=== PATIENT | male | born 1965 | race American Indian/Alaskan Native ===

== ENCOUNTER 2019-01-24 18:03 | Emergency (ER) | payer MEDICARE ==
--- NOTE | 2019-01-24 19:04 | Emergency Department Report ---
Blank Doc - Documentation Documentation: 54 y o male with pmh of CHF,HTN,DM presents with bilateral lower leg swelling x 2 days lab s ordered denies cp/sob
[2019-01-24 19:49] LABS: Basophils # (Auto) 0.1 K/mm3 (0.0-0.1); Basophils % (Auto) 0.8 % (0.0-1.8); Eosinophils # (Auto) 0.1 K/mm3 (0.0-0.4); Hematocrit 30.3 % (35.5-45.6); Hemoglobin 9.9 gm/dl (11.8-15.2); Lymphocytes # (Auto) 1.1 K/mm3 (1.2-5.4); Lymphocytes % (Auto) 16.2 % (13.4-35.0); Mean Corpuscular HGB Conc 33 % (32-34); Mean Corpuscular Volume 84 fl (84-94); Monocytes # (Auto) 0.8 K/mm3 (0.0-0.8); Monocytes % (Auto) 11.1 % (0.0-7.3); Platelet Count 302 K/mm3 (140-440); Red Blood Count 3.62 M/mm3 (3.65-5.03); Red Cell Distribution Width 19.2 % (13.2-15.2)
[2019-01-24 20:01] LABS: Albumin 3.4 g/dL (3.9-5); Calcium 8.5 mg/dL (8.4-10.2)
[2019-01-24] MEDS ORDERED: LASIX IV ONE (21:40)
[2019-01-24] MEDS ORDERED: NORCO 5/325 PO ONE (21:40)
--- NOTE | 2019-01-24 22:40 | Emergency Department Report ---
HPI - General Chief Complaint: Extremity Problem,Nontraumatic Time Seen by Provider: 01/24/19 19:00 - HPI HPI: 54 y o male with pmh of CHF,HTN,DM presents with bilateral lower leg swelling x 2 days ED Past Medical Hx - Past Medical History Previous Medical History?: Yes Hx Hypertension: Yes Hx Congestive Heart Failure: Yes Hx Diabetes: Yes Hx Deep Vein Thrombosis: Yes Additional medical history: hyperthyroidism - Surgical History Past Surgical History?: Yes Additional Surgical History: "lung surgery", mitral valve replacement, internal defib/pacemaker - Social History Smoking Status: Never Smoker Substance Use Type: None - Medications Home Medications: Home Medications Medication Instructions Recorded Confirmed Last Taken Type Warfarin Sodium [Coumadin] 5 mg PO 01/24/19 01/24/19 History ED Review of Systems ROS: Stated complaint: LEG PAIN/ SWELLING Other details as noted in HPI Physical Exam - Physical Exam Vital Signs: Vital Signs 01/24/19 19:00 Temperature 98.5 F Pulse Rate 78 Respiratory 18 Rate Blood Pressure 133/82 O2 Sat by Pulse 96 Oximetry Physical Exam: ED Physical Exam - General Limitations: No Limitations General appearance: alert, in no apparent distress - Head Head exam: Present: atraumatic, normocephalic - Eye Eye exam: Present: normal appearance, PERRL Pupils: Present: normal accommodation - ENT ENT exam: Present: mucous membranes moist - Neck Neck exam: Present: normal inspection - Respiratory Respiratory exam: Present: normal lung sounds bilaterally. Absent: respiratory distress, wheezes, rales - Cardiovascular Cardiovascular Exam: Present: regular rate, normal rhythm. Absent: systolic murmur, diastolic murmur, rubs, gallop - GI/Abdominal GI/Abdominal exam: Present: soft, nt, normal bowel sounds. Absent: distended - Rectal Rectal exam: Present: deferred - Extremities Exam Extremities exam: Present: 2 plus pedal edema - Back Exam Back exam: Present: normal inspection - Neurological Exam Neurological exam: Present: alert, oriented X3 - Psychiatric Psychiatric exam: Present: normal affect, normal mood - Skin Skin exam: Present: warm, dry, intact, normal color. Absent: rash ED Course Vital Signs 01/24/19 19:00 Temperature 98.5 F Pulse Rate 78 Respiratory 18 Rate Blood Pressure 133/82 O2 Sat by Pulse 96 Oximetry ED Medical Decision Making - Lab Data Result diagrams: 01/24/19 19:07 05/23/19 19:07 - Medical Decision Making chf patient with leg swelling and pain, lasix iv, norco given pain resolved. Critical care attestation.: If time is entered above; I have spent that time in minutes in the direct care of this critically ill patient, excluding procedure time. ED Disposition Clinical Impression: Peripheral edema Disposition: DC-01 TO HOME OR SELFCARE Is pt being admited?: No Does the pt Need Aspirin: No Condition: Stable Referrals: ROYAL LAY MD [Primary Care Provider] - 3-5 Days
[2019-01-24 23:53] VITALS: BP 117/74
== END 2019-01-25 00:02 | disposition home or self-care (01) ==
LOC: ED 18:03
DX: R60.9 Edema, unspecified (principal); I11.0 Hypertensive heart disease with heart failure; I50.9 Heart failure, unspecified; E11.9 Type 2 diabetes mellitus without complications; E05.90 Thyrotoxicosis, unspecified without thyrotoxic crisis or storm
CPT/HCPCS: 36415; 80053; 83880; 85025; 96374; 99283; J1940

== ENCOUNTER 2019-01-30 21:37 | Emergency (ER) | payer MEDICARE ==
--- NOTE | 2019-01-30 21:46 | Emergency Department Report ---
Blank Doc - Documentation Documentation: This is a 54-year-old male that presents with bilateral lower leg pains. Denies any trauma. HX of diabetes. This initial assessment/diagnostic orders/clinical plan/treatment(s) is/are subject to change based on patient's health status, clinical progression and re- assessment by fellow clinical providers in the ED. Further treatment and workup at subsequent clinical providers discretion. Patient/guardians urged not to elope from the ED as their condition may be serious if not clinically assessed and managed. Initial orders include: 1- Patient sent to [facility] for further evaluation and treatment 2- labs
[2019-01-30 22:00] VITALS: BP 124/74
[2019-01-30 22:05] LABS: Basophils # (Auto) 0.1 K/mm3 (0.0-0.1); Eosinophils # (Auto) 0.1 K/mm3 (0.0-0.4); Eosinophils % (Auto) 1.3 % (0.0-4.3); Hematocrit 30.3 % (35.5-45.6); Lymphocytes # (Auto) 0.9 K/mm3 (1.2-5.4); Lymphocytes % (Auto) 18.5 % (13.4-35.0); Mean Corpuscular HGB Conc 33 % (32-34); Mean Corpuscular Volume 83 fl (84-94); Monocytes # (Auto) 0.8 K/mm3 (0.0-0.8); Monocytes % (Auto) 15.1 % (0.0-7.3); Platelet Count 259 K/mm3 (140-440); Red Blood Count 3.64 M/mm3 (3.65-5.03); Red Cell Distribution Width 18.6 % (13.2-15.2)
[2019-01-30 22:22] LABS: Calcium 8.5 mg/dL (8.4-10.2)
[2019-01-31] MEDS ORDERED: NORCO 5/325 PO ONE (00:31)
[2019-01-31] MEDS ORDERED: NACL 0.9% 1000 ML 1,000 ML IV ONE (00:31)
--- NOTE | 2019-01-31 00:50 | Emergency Department Report ---
ED Lower Extremity HPI - General Chief Complaint: Extremity Problem,Nontraumatic Stated Complaint: LEG PAIN Time Seen by Provider: 01/30/19 21:45 Source: patient Mode of arrival: Ambulatory Limitations: No Limitations - History of Present Illness Initial Comments: This is a 54-year-old male that presents with bilateral lower leg pains. hx of chf and DVT on coumadin , pain 5/10 x 3 days pt denies sob Denies any trauma. HX of diabetes, CHF, and DVT, pt is ambulatory with steady at this time MD Complaint: leg injury (bilat LE pain swelling ) Onset/Timin -: days(s) Injury: Leg: Right, Left (bilat le pain swelling ) Type of Injury: other (none ) Place: home Severity: moderate Severity scale (0 -10): 5 Improves With: rest Worsens With: weight bearing, movement, palpation Context: other Associated Symptoms: swelling, ambulatory. denies: snap/pop sensation, numbness, tingling - Related Data Previous Rx's Medication Instructions Recorded Last Taken Type Acetaminophen/Codeine [Tylenol 1 tab PO Q6H PRN #12 tab 01/31/19 Unknown Rx /Codeine # 3 tab] Diclofenac 1% [Diclofenac 1% 1 applicatio TP QID PRN #1 tube 01/31/19 Unknown Rx topical gel] Allergies Allergy/AdvReac Type Severity Reaction Status Date / Time Penicillins Allergy Itching Verified 01/30/19 21:44 ED Review of Systems ROS: Stated complaint: LEG PAIN Other details as noted in HPI Constitutional: denies: chills, fever Eyes: denies: eye pain, eye discharge, vision change ENT: denies: ear pain, throat pain Respiratory: denies: cough, shortness of breath, wheezing Cardiovascular: denies: chest pain, palpitations Endocrine: no symptoms reported Gastrointestinal: denies: abdominal pain, nausea, diarrhea Genitourinary: denies: urgency, dysuria Musculoskeletal: arthralgia, myalgia, other (LLE pain ). 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) - Surgical History Hx Pacemaker: Yes - Social History Smoking Status: Former Smoker Substance Use Type: None - Medications Home Medications: Home Medications Medication Instructions Recorded Confirmed Last Taken Type Acetaminophen/Codeine [Tylenol 1 tab PO Q6H PRN #12 tab 01/31/19 Unknown Rx /Codeine # 3 tab] Diclofenac 1% [Diclofenac 1% 1 applicatio TP QID PRN #1 tube 01/31/19 Unknown Rx topical gel] ED Physical Exam - General Limitations: No Limitations General appearance: alert, in no apparent distress - Head Head exam: Present: atraumatic, normocephalic - Eye Eye exam: Present: normal appearance, PERRL, EOMI Pupils: Present: normal accommodation - ENT ENT exam: Present: mucous membranes moist - Neck Neck exam: Present: normal inspection, full ROM. Absent: tenderness, meningismus, lymphadenopathy, thyromegaly - Expanded Neck Exam Expanded Neck exam: Absent: tenderness, midline deformity, anterior neck swelling, thyroid mass, carotid bruit, tracheal deviation - Respiratory Respiratory exam: Present: normal lung sounds bilaterally. Absent: respiratory distress, wheezes, stridor, chest wall tenderness - Cardiovascular Cardiovascular Exam: Present: regular rate, normal rhythm, normal heart sounds. Absent: systolic murmur, diastolic murmur, rubs, gallop - GI/Abdominal GI/Abdominal exam: Present: normal bowel sounds. Absent: distended, tenderness, guarding, rebound, rigid, bruit, hernia - Rectal Rectal exam: Present: deferred - Extremities Exam Extremities exam: Present: full ROM, tenderness (left lateral Leg ), normal capillary refill, pedal edema (nonpitting ). Absent: joint swelling, calf tenderness - Expanded Lower Extremity Exam Left Lower Leg exam: Present: full ROM, tenderness. Absent: swelling, abrasion, laceration, ecchymosis, deformity, crepidus, dislocation, erythema, palpable cord, Brett's sign Ankle exam: Present: normal inspection, full ROM Foot/Toe exam: Present: normal inspection, full ROM. Absent: tenderness - Back Exam Back exam: Present: normal inspection, full ROM. Absent: CVA tenderness (R), CVA tenderness (L) - Neurological Exam Neurological exam: Present: alert, oriented X3, CN II-XII intact, normal gait, reflexes normal - Psychiatric Psychiatric exam: Present: normal affect, normal mood - Skin Skin exam: Present: warm, dry, intact, normal color. Absent: rash ED Course Vital Signs 01/30/19 21:45 Temperature 97.3 F L Pulse Rate 71 Respiratory 20 Rate Blood Pressure 124/74 O2 Sat by Pulse 97 Oximetry ED Lower Extremity MDM - Lab Data Result diagrams: 01/30/19 21:49 01/30/19 21:49 Labs 01/30/19 01/30/19 01/30/19 21:49 21:49 21:49 WBC 5.0 RBC 3.64 L Hgb 10.0 L Hct 30.3 L MCV 83 L MCH 28 MCHC 33 RDW 18.6 H Plt Count 259 Lymph % (Auto) 18.5 [place] % (Auto) 15.1 H Eos % (Auto) 1.3 Baso % (Auto) 1.0 Lymph # 0.9 L [place] # 0.8 Eos # 0.1 Baso # 0.1 Seg Neutrophils % 64.1 Seg Neutrophils # 3.2 PT INR APTT VBG pH 7.428 H Sodium 135 L Potassium 4.4 Chloride 100.1 Carbon Dioxide 23 Anion Gap 16 BUN 30 H Creatinine 2.0 H Estimated GFR 35 BUN/Creatinine Ratio 15 Glucose 102 H Calcium 8.5 Total Creatine Kinase 128 Troponin T 01/31/19 01/31/19 01:00 01:00 WBC RBC Hgb Hct MCV MCH MCHC RDW Plt Count Lymph % (Auto) [place] % (Auto) Eos % (Auto) Baso % (Auto) Lymph # [place] # Eos # Baso # Seg Neutrophils % Seg Neutrophils # PT 22.9 H INR 1.88 H APTT 37.2 H VBG pH Sodium Potassium Chloride Carbon Dioxide Anion Gap BUN Creatinine Estimated GFR BUN/Creatinine Ratio Glucose Calcium Total Creatine Kinase Troponin T < 0.010 - Radiology Data Radiology results: pending, report reviewed, image reviewed Ordering Physician: ANGELINE THOMPSON NP Date of Service: 01/31/19 Procedure(s): XR tibia fibula 2V LT Accession Number(s): [id number] cc: ANGELINE THOMPSON NP Fluoro Time In Minutes: PROCEDURE: XR TIBIA FIBULA 2V LT TECHNIQUE: Left tibia and fibula radiographs, AP and lateral views. HISTORY: leg pain COMPARISONS: None. FINDINGS: Fracture (s) and/or Dislocation(s): None. Joint space(s): Normal. Soft tissues: Normal. Bone mineralization: Normal. Foreign bodies: None. IMPRESSION: Normal Examination. This document is electronically signed by Mauri Monson MD., Jan 31 2019 01:18:32 AM ET Transcribed By: [place] Dictated By: MAURI MONSON MD Electronically Authenticated By: MAURI MONSON MD Signed Date/Time: 01/31/19 0120 DD/ TD/TT: 01/31/19 0055 Ordering Physician: ANGELINE THOMPSON NP Date of Service: 01/31/19 Procedure(s): XR chest routine 2V Accession Number(s): [id number] cc: ANGELINE THOMPSON NP Fluoro Time In Minutes: PROCEDURE: XR CHEST ROUTINE 2V TECHNIQUE: PA and lateral chest radiographs were obtained. HISTORY: sob COMPARISONS: None. FINDINGS: Heart: Heart is borderline enlarged. Mediastinum/Vessels: Normal. Lungs/Pleural space: Lungs are expanded. There are no infiltrates, effusions or pneumothoraces.. Bony thorax: No acute osseous abnormality. Pacemaker leads are in proper position. IMPRESSION: Heart is borderline enlarged. Lungs are expanded. There are no infiltrates, effusions or pneumothoraces.. Pacemaker leads are in proper position.. This document is electronically signed by Mauri Monson MD., Jan 31 2019 01:15:02 AM ET Transcribed By: CO Dictated By: MAURI MONSON MD Electronically Authenticated By: MAURI MONSON MD Signed Date/Time: 01/31/19 0116 DD/ 0033 TD/TT: 01/31/195 - Medical Decision Making cxr normal no infiltrates no opacitie, LE xray normal no fracture no soft tissue abnormality, pain is improved with hydrocodone given in ed , LE exam mild swelling left no calf tenderness neg homans sign, no pain with dorsoflexion, labs noted for inr: 1.88, plan dc to home follow with pcp in 2-3 days take medications as prescribed checked [place] [facility]: last rx filled 09/2018, Critical care attestation.: If time is entered above; I have spent that time in minutes in the direct care of this critically ill patient, excluding procedure time. ED Disposition Clinical Impression: Leg pain, bilateral Disposition: DC- TO HOME OR SELFCARE Is pt being admited?: No Does the pt Need Aspirin: No Condition: Stable Instructions: Arthralgia (ED), Musculoskeletal Pain (ED) Prescriptions: Diclofenac 1% [Diclofenac 1% topical gel] 1 applicatio TP QID PRN #1 tube PRN Reason: pain Acetaminophen/Codeine [Tylenol /Codeine # 3 tab] 1 tab PO Q6H PRN #12 tab PRN Reason: pain Referrals: JEFFERSON CACERES MD [Staff Physician] - 3-5 Days ISSA CARIAS MD [Staff Physician] - 3-5 Days Forms: Work/School Release Form(ED) Time of Disposition: 04:18
--- NOTE | 2019-01-31 01:16 | XRay Report ---
PROCEDURE: XR CHEST ROUTINE 2V TECHNIQUE: PA and lateral chest radiographs were obtained. HISTORY: sob COMPARISONS: None. FINDINGS: Heart: Heart is borderline enlarged. Mediastinum/Vessels: Normal. Lungs/Pleural space: Lungs are expanded. There are no infiltrates, effusions or pneumothoraces.. Bony thorax: No acute osseous abnormality. Pacemaker leads are in proper position. IMPRESSION: Heart is borderline enlarged. Lungs are expanded. There are no infiltrates, effusions or pneumothoraces.. Pacemaker leads are in proper position.. This document is electronically signed by Mauri Wilson MD., Jan 31 2019 01:15:02 AM ET
--- NOTE | 2019-01-31 01:20 | XRay Report ---
PROCEDURE: XR TIBIA FIBULA 2V LT TECHNIQUE: Left tibia and fibula radiographs, AP and lateral views. HISTORY: leg pain COMPARISONS: None. FINDINGS: Fracture (s) and/or Dislocation(s): None. Joint space(s): Normal. Soft tissues: Normal. Bone mineralization: Normal. Foreign bodies: None. IMPRESSION: Normal Examination. This document is electronically signed by Mauri Wilson MD., Jan 31 2019 01:18:32 AM ET
[2019-01-31 01:45] LABS: INR 1.88 (0.87-1.13)
[2019-01-31 01:46] LABS: Partial Thromboplastin Time 37.2 Sec. (24.2-36.6)
== END 2019-01-31 04:30 | disposition home or self-care (01) ==
LOC: ED 21:37 → MERGE 21:37 → ED 01-31 04:30
DX: M79.661 Pain in right lower leg (principal); M79.662 Pain in left lower leg; I50.9 Heart failure, unspecified; I11.0 Hypertensive heart disease with heart failure; M79.10 Myalgia, unspecified site; Z79.01 Long term (current) use of anticoagulants; Z88.0 Allergy status to penicillin; Z86.718 Personal history of other venous thrombosis and embolism; Z95.0 Presence of cardiac pacemaker; Z87.891 Personal history of nicotine dependence
CPT/HCPCS: 36415; 71046; 73590; 80048; 82550; 82805; 82962; 84484; 85025; 85610; 85730; 99284; J7030

== ENCOUNTER 2019-02-01 18:51 | Emergency (ER) | payer MEDICARE ==
--- NOTE | 2019-02-01 19:01 | Event Note ---
ED Screening Note ED Screening Note: here with sob- no fever; no cp glf yest landed on knees - swollen and red on coumadin extensive cardiac history including MVR and AICD can not tell me all his meds clean for 2 years- no etoh/cig/drugs allergy pcn no travel would take blood This initial assessment/diagnostic orders/clinical plan/treatment(s) is/are subject to change based on patients health status, clinical progression and re- assessment by fellow clinical providers in the ED. Further treatment and workup at subsequent clinical providers discretion. Patient/guardian urged not to elope from the ED as their condition may be serious if not clinically assessed and managed. Initial orders include: labs inc INR xray chest/knee chest xray
[2019-02-01 19:24] LABS: Basophils # (Auto) 0.1 K/mm3 (0.0-0.1); Basophils % (Auto) 1.4 % (0.0-1.8); Eosinophils # (Auto) 0.1 K/mm3 (0.0-0.4); Hematocrit 31.5 % (35.5-45.6); Hemoglobin 10.3 gm/dl (11.8-15.2); Lymphocytes % (Auto) 20.2 % (13.4-35.0); Mean Corpuscular HGB Conc 33 % (32-34); Mean Corpuscular Volume 82 fl (84-94); Monocytes # (Auto) 0.8 K/mm3 (0.0-0.8); Monocytes % (Auto) 15.6 % (0.0-7.3); Platelet Count 253 K/mm3 (140-440); Red Blood Count 3.82 M/mm3 (3.65-5.03); Red Cell Distribution Width 18.4 % (13.2-15.2)
[2019-02-01 19:35] LABS: INR 2.32 (0.87-1.13)
[2019-02-01 19:51] LABS: Albumin 3.3 g/dL (3.9-5); Calcium 8.5 mg/dL (8.4-10.2)
--- NOTE | 2019-02-01 20:16 | XRay Report ---
PROCEDURE: XR KNEE BILAT 1-2V TECHNIQUE: Bilateral knee radiographs, standing AP view. HISTORY: pain COMPARISONS: None . FINDINGS: Fracture (s) and/or Dislocation(s): None . Joint space(s): Normal . Soft tissues: Normal . Bone mineralization: Normal . Foreign bodies: None . IMPRESSION: There is no acute bony abnormality. . This document is electronically signed by Mauri Wilson MD., Feb 01 2019 09:14:20 PM ET
--- NOTE | 2019-02-01 20:18 | XRay Report ---
PROCEDURE: XR CHEST ROUTINE 2V TECHNIQUE: PA and lateral chest radiographs were obtained. HISTORY: Dyspnea COMPARISONS: None. FINDINGS: Heart: Heart size is normal. There has been open heart surgery.. Mediastinum/Vessels: Normal. Lungs/Pleural space: There are small pleural effusions. There is no pneumothorax. There are no acute infiltrates. Bony thorax: No acute osseous abnormality. Pacemaker leads are in proper position. IMPRESSION: Heart size is normal. There has been open heart surgery.. There are small pleural effusions. There is no pneumothorax. There are no acute infiltrates. Pacemaker leads are in proper position.. This document is electronically signed by Mauri Wilson MD., Feb 01 2019 09:16:24 PM ET
[2019-02-01] MEDS ORDERED: ULTRAM PO ONE (20:41)
[2019-02-01] MEDS ORDERED: TESSALON PERLES PO ONE (20:41)
--- NOTE | 2019-02-01 21:38 | Emergency Department Report ---
ED Extremity Problem HPI - General Chief complaint: Upper Respiratory Infection Stated complaint: COUGH/BOTH LEG/KNEE PAIN Time Seen by Provider: 02/01/19 19:01 Source: patient Mode of arrival: Ambulatory Limitations: No Limitations - History of Present Illness Initial comments: 54-year-old male with a past medical history of CHF, DVT, diabetes, pulmonary embolism, mitral valve replacement currently on Coumadin, and defibrillator presents to the hospital with complaints of continued bilateral lower extremity edema and now cough. Patient apparently had a fall yesterday complains of bilateral leg pain. Patient has been seen here on January 25 for bilateral lower extremity and received IV Lasix and DC home. He was then seen here on January 31 for the same complaint and had a unremarkable chest x-ray and left tib-fib x- ray. Now he seems again with a similar complaint. He has chronic leg edema which she states in the past has improved with elevation but is now more persistent. He states he is compliant with medications including Lasix 40 mg once a day. He has chronic 3 pillow orthopnea. Today he developed a nonproductive cough without fever. He is requesting medication for pain for his legs. His primary care doctor is Dr. 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 Severity scale (0 -10): 6 - Related Data Home Medications Medication Instructions Recorded Confirmed Last Taken Warfarin Sodium [Coumadin] 5 mg PO 01/24/19 01/24/19 Previous Rx's Medication Instructions Recorded Last Taken Type Cyclobenzaprine [Flexeril] 10 mg PO TID PRN #15 tablet 01/24/19 Unknown Rx Benzonatate [Tessalon Perles] 100 mg PO Q8HR PRN #20 capsule 02/01/19 Unknown Rx traMADol [Ultram 50 MG tab] 50 mg PO Q6HR PRN #20 tablet 02/01/19 Unknown Rx Allergies Allergy/AdvReac Type Severity Reaction Status Date / Time Penicillins Allergy Unknown Verified 02/01/19 18:56 ED Review of Systems ROS: Stated complaint: COUGH/BOTH LEG/KNEE PAIN Other details as noted in HPI Comment: All other systems reviewed and negative ED Past Medical Hx - Past Medical History Previous Medical History?: Yes Hx Hypertension: Yes Hx Congestive Heart Failure: Yes Hx Diabetes: Yes Hx Deep Vein Thrombosis: Yes Hx Pulmonary Embolism: Yes Additional medical history: hyperthyroidism - Surgical History Past Surgical History?: Yes Additional Surgical History: "lung surgery", mitral valve replacement, internal defib/pacemaker - Social History Smoking Status: Former Smoker Substance Use Type: None - Medications Home Medications: Home Medications Medication Instructions Recorded Confirmed Last Taken Type Cyclobenzaprine [Flexeril] 10 mg PO TID PRN #15 tablet 01/24/19 Unknown Rx Warfarin Sodium [Coumadin] 5 mg PO 01/24/19 01/24/19 History Benzonatate [Tessalon Perles] 100 mg PO Q8HR PRN #20 capsule 02/01/19 Unknown Rx traMADol [Ultram 50 MG tab] 50 mg PO Q6HR PRN #20 tablet 02/01/19 Unknown Rx ED Physical Exam - General Limitations: No Limitations - Other Other exam information: General: No limitations, patient is alert in no acute distress Head exam: Atraumatic, normocephalic Eyes exam: Normal appearance ENT: Moist mucous membrane, normal oropharynx Neck exam: Normal inspection, full range of motion, no meningismus nontender Respiratory exam: Clear to auscultation bilateral, no wheezes, rales, crackles Cardiovascular: Normal rate and rhythm, + murmur Abdomen: Soft, nondistended, and nontender, with normal bowel sounds, no rebound, or guarding Extremity: Full range of motion, bilateral leg edema lower extremities without isolated Tenderness or leg asymmetry. Back: Normal Inspection, full range of motion, no tenderness Neurologic: Alert, oriented x3, cranial nerves intact, no motor or sensory deficit Psychiatric: normal affect, normal mood Skin: Warm, dry, intact ED Course Vital Signs 02/01/19 02/01/19 19:26 21:41 Temperature 97.7 F Pulse Rate 67 76 Respiratory 18 18 Rate Blood Pressure 116/75 Blood Pressure 126/86 [Left] O2 Sat by Pulse 98 98 Oximetry ED Medical Decision Making - Lab Data Result diagrams: 02/01/19 19:04 02/01/19 19:04 Lab Results 02/01/19 02/01/19 02/01/19 Range/Units 19:04 19:04 19:04 WBC 5.0 (4.5-11.0) K/mm3 RBC 3.82 (3.65-5.03) M/mm3 Hgb 10.3 L (11.8-15.2) gm/dl Hct 31.5 L (35.5-45.6) % MCV 82 L (84-94) fl MCH 27 L (28-32) pg MCHC 33 (32-34) % RDW 18.4 H (13.2-15.2) % Plt Count 253 (140-440) K/mm3 Lymph % (Auto) 20.2 (13.4-35.0) % [place] % (Auto) 15.6 H (0.0-7.3) % Eos % (Auto) 2.0 (0.0-4.3) % Baso % (Auto) 1.4 (0.0-1.8) % Lymph # 1.0 L (1.2-5.4) K/mm3 [place] # 0.8 (0.0-0.8) K/mm3 Eos # 0.1 (0.0-0.4) K/mm3 Baso # 0.1 (0.0-0.1) K/mm3 Seg Neutrophils % 60.8 (40.0-70.0) % Seg Neutrophils # 3.0 (1.8-7.7) K/mm3 PT 27.1 H (12.2-14.9) Sec. INR 2.32 H (0.87-1.13) Sodium 135 L (137-145) mmol/L Potassium 4.5 (3.6-5.0) mmol/L Chloride 97.6 L (98-107) mmol/L Carbon Dioxide 24 (22-30) mmol/L Anion Gap 18 mmol/L BUN 31 H (9-20) mg/dL Creatinine 1.9 H (0.8-1.5) mg/dL Estimated GFR 45 ml/min BUN/Creatinine Ratio 16 % Glucose 95 (75-100) mg/dL Calcium 8.5 (8.4-10.2) mg/dL Total Bilirubin 0.50 (0.1-1.2) mg/dL AST 21 (5-40) units/L ALT 17 (7-56) units/L Alkaline Phosphatase 84 (35-129) units/L Troponin T (0.00-0.029) ng/mL NT-Pro-B Natriuret Pep (0-900) pg/mL Total Protein 7.2 (6.3-8.2) g/dL Albumin 3.3 L (3.9-5) g/dL Albumin/Globulin Ratio 0.8 % 02/01/19 Range/Units 19:04 WBC (4.5-11.0) K/mm3 RBC (3.65-5.03) M/mm3 Hgb (11.8-15.2) gm/dl Hct (35.5-45.6) % MCV (84-94) fl MCH (28-32) pg MCHC (32-34) % RDW (13.2-15.2) % Plt Count (140-440) K/mm3 Lymph % (Auto) (13.4-35.0) % [place] % (Auto) (0.0-7.3) % Eos % (Auto) (0.0-4.3) % Baso % (Auto) (0.0-1.8) % Lymph # (1.2-5.4) K/mm3 [place] # (0.0-0.8) K/mm3 Eos # (0.0-0.4) K/mm3 Baso # (0.0-0.1) K/mm3 Seg Neutrophils % (40.0-70.0) % Seg Neutrophils # (1.8-7.7) K/mm3 PT (12.2-14.9) Sec. INR (0.87-1.13) Sodium (137-145) mmol/L Potassium (3.6-5.0) mmol/L Chloride (98-107) mmol/L Carbon Dioxide (22-30) mmol/L Anion Gap mmol/L BUN (9-20) mg/dL Creatinine (0.8-1.5) mg/dL Estimated GFR ml/min BUN/Creatinine Ratio % Glucose (75-100) mg/dL Calcium (8.4-10.2) mg/dL Total Bilirubin (0.1-1.2) mg/dL AST (5-40) units/L ALT (7-56) units/L Alkaline Phosphatase (35-129) units/L Troponin T < 0.010 (0.00-0.029) ng/mL NT-Pro-B Natriuret Pep 2062 H (0-900) pg/mL Total Protein (6.3-8.2) g/dL Albumin (3.9-5) g/dL Albumin/Globulin Ratio % - Radiology Data Radiology results: report reviewed PROCEDURE: XR CHEST ROUTINE 2V TECHNIQUE: PA and lateral chest radiographs were obtained. HISTORY: Dyspnea COMPARISONS: None. FINDINGS: Heart: Heart size is normal. There has been open heart surgery.. Mediastinum/Vessels: Normal. Lungs/Pleural space: There are small pleural effusions. There is no pneumothorax. There are no acute infiltrates. Bony thorax: No acute osseous abnormality. Pacemaker leads are in proper position. IMPRESSION: Heart size is normal. There has been open heart surgery.. There are small pleural effusions. There is no pneumothorax. There are no acute infiltrates. Pacemaker leads are in proper position.. PROCEDURE: XR KNEE BILAT 1-2V TECHNIQUE: Bilateral knee radiographs, standing AP view. HISTORY: pain COMPARISONS: None . FINDINGS: Fracture (s) and/or Dislocation(s): None . Joint space(s): Normal . Soft tissues: Normal . Bone mineralization: Normal . Foreign bodies: None . IMPRESSION: There is no acute bony abnormality. . - Medical Decision Making Patient has frequent ER visits here for the same complaint of lower extremity edema. No signs of pulmonary edema. Mild worsening and renal function and therefore Lasix would not be increased. Patient encouraged to elevate legs and to follow-up with his primary care doctor for further management. Provided tramadol and Tessalon Perles in the ED. - Differential Diagnosis CHF, renal failure, liver failure, pneumonia, bronchitis Critical Care Time: No Critical care attestation.: If time is entered above; I have spent that time in minutes in the direct care of this critically ill patient, excluding procedure time. ED Disposition Clinical Impression: Peripheral edema, Renal insufficiency, Chronic pain, History of mitral valve repair, Anticoagulated on Coumadin, Cough Disposition: DC-01 TO HOME OR SELFCARE Is pt being admited?: No Does the pt Need Aspirin: No Condition: Stable Instructions: Leg Edema (ED), Impaired Kidney Function (ED) Additional Instructions: Take the medication as prescribed. Follow up with your doctor or the clinic/doctor provided. Return if symptoms worsen as indicated by your discharge instructions. Please note that our kidney function is slightly worse than your previous value. It is important that you follow up with your doctor for further monitoring. Prescriptions: Benzonatate [Tessalon Perles] 100 mg PO Q8HR PRN #20 capsule PRN Reason: Cough traMADol [Ultram 50 MG tab] 50 mg PO Q6HR PRN #20 tablet PRN Reason: Pain Referrals: [facility] [Provider Group] - 3-5 Days RAULITO ROD MD [Staff Physician] - 2-3 Days Time of Disposition: 22:09
[2019-02-01 21:43] VITALS: BP 126/86
== END 2019-02-01 22:27 | disposition home or self-care (01) ==
LOC: ED 18:51
DX: R60.9 Edema, unspecified (principal); N28.9 Disorder of kidney and ureter, unspecified; G89.29 Other chronic pain; R05 Cough; Z79.01 Long term (current) use of anticoagulants; I11.0 Hypertensive heart disease with heart failure; I50.9 Heart failure, unspecified; E11.9 Type 2 diabetes mellitus without complications; E03.9 Hypothyroidism, unspecified
CPT/HCPCS: 36415; 71046; 80053; 83880; 84484; 85025; 85610

== ENCOUNTER 2019-02-21 21:07 | Inpatient (IN) | payer MEDICARE ==
--- NOTE | 2019-02-21 21:24 | Emergency Department Report ---
Blank Doc - Documentation Documentation: This is a 54-year-old male that presents with bilateral leg swellings and SOB. This initial assessment/diagnostic orders/clinical plan/treatment(s) is/are subject to change based on patient's health status, clinical progression and re- assessment by fellow clinical providers in the ED. Further treatment and workup at subsequent clinical providers discretion. Patient/guardians urged not to elope from the ED as their condition may be serious if not clinically assessed and managed. Initial orders include: 1- Patient sent to MAIN ED for further evaluation and treatment 2- labs 3- CXR 4- EKG
[2019-02-21 21:51] LABS: Eosinophils # (Auto) 0.1 K/mm3 (0.0-0.4); Eosinophils % (Auto) 1.1 % (0.0-4.3); Hematocrit 31.5 % (35.5-45.6); Hemoglobin 10.3 gm/dl (11.8-15.2); Lymphocytes # (Auto) 0.9 K/mm3 (1.2-5.4); Lymphocytes % (Auto) 17.8 % (13.4-35.0); Mean Corpuscular HGB Conc 33 % (32-34); Mean Corpuscular Volume 84 fl (84-94); Monocytes # (Auto) 0.6 K/mm3 (0.0-0.8); Monocytes % (Auto) 12.6 % (0.0-7.3); Platelet Count 227 K/mm3 (140-440); Red Blood Count 3.75 M/mm3 (3.65-5.03); Red Cell Distribution Width 19.4 % (13.2-15.2)
--- NOTE | 2019-02-21 21:53 | XRay Report ---
PROCEDURE: XR CHEST ROUTINE 2V TECHNIQUE: PA and lateral chest radiographs were obtained. HISTORY: CHRISTINA COMPARISONS: January 31, 2019. FINDINGS: Heart: Mild degree cardiomegaly is noted.. A prosthetic cardiac valve is identified. Mediastinum/Vessels: Normal. Lungs/Pleural space: Bilateral lungs are clear. A mild degree bilateral pleural effusions are identi fied.. Bony thorax: No acute osseous abnormality. A left-sided bipolar cardiac device is noted with its leads in place IMPRESSION: Cardiomegaly Mild degree bilateral pleural effusions unchanged since the prior study. This document is electronically signed by Cl Mercedes MD., February 21 2019 09:50:56 PM ET
[2019-02-21 22:07] LABS: INR 2.18 (0.87-1.13)
[2019-02-21 22:07] LABS: Calcium 8.7 mg/dL (8.4-10.2)
[2019-02-21 22:08] LABS: Partial Thromboplastin Time 49.6 Sec. (24.2-36.6)
[2019-02-21] MEDS ORDERED: LASIX IV ONE (22:10)
[2019-02-21] MEDS ORDERED: MORPHINE IV ONE (22:11)
[2019-02-21] MEDS ORDERED: DUONEB *Not for PRN Use IH ONE (22:23)
--- NOTE | 2019-02-21 22:27 | Emergency Department Report ---
HPI - General Chief Complaint: Dyspnea/Respdistress Time Seen by Provider: 02/21/19 21:21 - HPI HPI: 54-year-old -[place] male presents to the emergency department with complaint of a 2 day history of progressively worsening lower extremity swelling and shortness of breath. He has a past medical history of CHF, coronary artery disease, previous CVA, hypertension and he has a mitral valve replacement and a pacemaker in place. He has a primary care physician but cannot currently remember their name. 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 He is a tobacco smoker, but denies any illicit drug use. He has a previous history of alcohol dependence but says he has been sober for 6 years. No recent travel or sick contacts at home. He has been using his normal home medications compliantly. ED Past Medical Hx - Past Medical History Previous Medical History?: Yes Hx Hypertension: Yes Hx CVA: Yes Hx Heart Attack/AMI: Yes Hx Psychiatric Treatment: Yes (drug/alcohol abuse,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) - Surgical History Past Surgical History?: Yes Hx Open Heart Surgery: Yes (Mitral Valve Replacement) Hx Pacemaker: Yes - Social History Smoking Status: Never Smoker Substance Use Type: None - Medications Home Medications: Home Medications Medication Instructions Recorded Confirmed Last Taken Type Acetaminophen/Codeine [Tylenol 1 tab PO Q6H PRN #12 tab 01/31/19 Unknown Rx /Codeine # 3 tab] Diclofenac 1% [Diclofenac 1% 1 applicatio TP QID PRN #1 tube 01/31/19 Unknown Rx topical gel] ED Review of Systems ROS: Stated complaint: BILATERAL LEG EDEMA Other details as noted in HPI Comment: All other systems reviewed and negative Constitutional: denies: chills, fever Eyes: denies: eye pain ENT: denies: ear pain, throat pain Respiratory: orthopnea, shortness of breath, SOB with exertion. denies: cough Cardiovascular: edema. denies: palpitations Gastrointestinal: denies: abdominal pain, vomiting Genitourinary: denies: dysuria, frequency Musculoskeletal: denies: back pain, arthralgia Skin: denies: rash, lesions Neurological: denies: headache, weakness Physical Exam - Physical Exam Vital Signs: Vital Signs 02/21/19 21:13 Temperature 97.6 F Pulse Rate 69 Respiratory 14 Rate Blood Pressure 110/79 O2 Sat by Pulse 97 Oximetry Physical Exam: GENERAL: The patient is well-developed well-nourished. HENT: Normocephalic. Atraumatic. Patient has moist mucous membranes. EYES: Extraocular motions are intact. Pupils equal reactive to light bilaterally. NECK: Supple. Trachea is midline. CHEST/LUNGS: Coarse breath sounds throughout the chest. No tachypnea or accessory muscle use. There is no respiratory distress noted. HEART/CARDIOVASCULAR: Regular. There is no tachycardia. There is no murmur. ABDOMEN: Abdomen is soft, nontender. Patient has normal bowel sounds. There is no abdominal distention. SKIN: One to 2+ pitting edema to the bilateral lower extremities. NEURO: The patient is awake, alert, and oriented. The patient is cooperative. The patient has no focal neurologic deficits. The patient has normal speech. MUSCULOSKELETAL: There is no tenderness or deformity. There is no evidence of acute injury. ED Course Vital Signs 02/21/19 21:13 Temperature 97.6 F Pulse Rate 69 Respiratory 14 Rate Blood Pressure 110/79 O2 Sat by Pulse 97 Oximetry ED Medical Decision Making - Lab Data Result diagrams: 02/21/19 21:22 02/21/19 21:22 - EKG Data -: EKG Interpreted by Tn EKG shows normal: sinus rhythm, axis, intervals, QRS complexes, ST-T waves (T inversions to the lateral leads) Rate: normal - EKG Data When compared to previous EKG there are: previous EKG unavailable Interpretation: other (sinus rhythm, T-wave inversions to the lateral leads, no ST elevation CT) - Radiology Data Radiology results: image reviewed interpreted by me: Chest x-ray shows pulmonary vascular congestion and some basilar pleural effusions. No obvious pneumonia. No pneumothorax. - Medical Decision Making Patient presents with a 2 day history of progressively worsening shortness of breath and lower extremity swelling. On examination he has some coarse breath sounds but does not appear in any respiratory distress. He also has 1-2+ pitting edema of the bilateral lower extremities. Chest x-ray shows some pulmonary vascular congestion and basilar pleural effusions. Labs show a BNP of greater than 2500 without significant renal insufficiency or failure. The patient was given some Lasix to start diuresis, pain medication and a breathing treatment. He will be admitted to the hospital for further evaluation and treatment and was accepted for admission by the hospitalist service and Dr Montoya. - Differential Diagnosis CHF, PE, CT, Pneumonia, venous stasis Critical Care Time: No Critical care attestation.: If time is entered above; I have spent that time in minutes in the direct care of this critically ill patient, excluding procedure time. ED Disposition Clinical Impression: Swelling of both lower extremities, Renal insufficiency, mild Acute exacerbation of CHF (congestive heart failure) Qualifiers: Heart failure type: unspecified Qualified Code(s): I50.9 - Heart failure, unspecified Dyspnea Qualifiers: Dyspnea type: shortness of breath Qualified Code(s): R06.02 - Shortness of breath; R06.00 - Dyspnea, unspecified; R06.01 - Orthopnea Disposition: OP ADMIT IP TO THIS HOSP Is pt being admited?: Yes Condition: Fair Referrals: ROYAL LAY MD [Primary Care Provider] - 3-5 Days Time of Disposition: 22:48
[2019-02-21] MEDS ORDERED: DICLOFENAC 1% TP PRN (23:10)
[2019-02-22] MEDS ORDERED: NITROSTAT SL PRN (00:04)
[2019-02-22] MEDS ORDERED: ZOFRAN IV PRN (00:04)
[2019-02-22] MEDS ORDERED: PROVENTIL IH PRN (00:04)
[2019-02-22] MEDS ORDERED: SODIUM CHLORIDE FLUSH SYRINGE 10 ML IV PRN (00:04)
--- NOTE | 2019-02-22 00:19 | History and Physical Report ---
History of Present Illness Date of examination: 02/22/19 Date of admission: 02/22/2019 Chief complaint: Worsening bilateral lower extremity edema and shortness of breath History of present illness: 54-year-old -Thai who with history of alcohol abuse, drug and alcohol use currently in recovery program, CHF, mitral valve replacement, CAD, CVA, AL, pacemaker in situ who presents to [facility] ED with complaints of bilateral lower extremity edema and shortness of breath for the past 3 days. He states that over the past 3 days he's been experiencing progressively worsening shortness of breath and bilateral lower extremity edema L>R. Patient states that he is compliant with medication. He states that his ophthalmology assistant can't remember the provider's name. Admits: Occasional nonproductive cough Denies: Chest pain,n/v/d, fever, hemoptysis, recent sick contact Past History Past Medical History: acute AL, CAD, heart failure, stroke, other (CKD) Past Surgical History: Other (pacemaker placement, mitral valve replacement) Social history: smoking, other (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) Medications and Allergies Allergies Allergy/AdvReac Type Severity Reaction Status Date / Time Penicillins Allergy Itching Verified 01/30/19 21:44 Home Medications Medication Instructions Recorded Confirmed Last Taken Type Acetaminophen/Codeine [Tylenol 1 tab PO Q6H PRN #12 tab 01/31/19 Unknown Rx /Codeine # 3 tab] Diclofenac 1% [Diclofenac 1% 1 applicatio TP QID PRN #1 tube 01/31/19 Unknown Rx topical gel] Active Meds: Active Medications Acetaminophen (Tylenol) 650 mg PO Q4H PRN PRN Reason: Pain MILD(1-3)/Fever >100.5/ROWAN Acetaminophen/Codeine Phosphate (Tylenol #3) 1 tab PO Q6H PRN PRN Reason: pain Albuterol (Proventil) 2.5 mg IH Q3HRT PRN PRN Reason: Shortness Of Breath Diclofenac Sodium (Diclofenac 1%) 1 applic TP QID PRN PRN Reason: pain Docusate Sodium (Colace) 100 mg PO BID JEB Furosemide (Lasix) 40 mg IV 0600,1800 JEB Nitroglycerin (Nitrostat) 0.4 mg SL .Q5MIN PRN PRN Reason: Chest Pain Ondansetron HCl (Zofran) 4 mg IV Q8H PRN PRN Reason: Nausea And Vomiting Sodium Chloride (Sodium Chloride Flush Syringe 10 Ml) 10 ml IV BID JEB Sodium Chloride (Sodium Chloride Flush Syringe 10 Ml) 10 ml IV PRN PRN PRN Reason: LINE FLUSH Review of Systems All systems: negative (Reviewed and no additional remarkable complaints except as noted below) Cardiovascular: edema (L>R), shortness of breath, dyspnea on exertion, paroxysmal nocturnal dyspnea Respiratory: cough, shortness of breath, dyspnea on exertion Exam - Physical Exam Narrative exam: Physical exam General appearance: Present: No acute distress, alert and oriented 3, middle ag ed adult male EENT Eyes: Present: PERRL, EOM intact ENT: hearing intact, poor dentition - Neck Neck: Present: supple, normal ROM - Respiratory Respiratory effort: Non-labored Respiratory: Bibasilar crackles - Cardiovascular Heart rate: 69 (bpm) Rhythm: Sinus rhythm Heart Sounds: Present: S1 & S2. Absent: rub, click - Extremities Extremities: abnormal (bilateral lower extremity edema L>R, discoloration to bilateral lower extremity edema, weak pulses) - Peripheral Assessment Peripheral Pulses: within normal limits - Abdominal General gastrointestinal: soft, non-tender, normal bowel sounds - Integumentary Integumentary: Present: warm, dry - Musculoskeletal Musculoskeletal: Able to move all extremities -Neurological Neurological: CNII-XII - Psychiatric Psychiatric: cooperative - Constitutional Vitals: Temp Pulse Resp BP Pulse Ox 97.6 F 68 20 110/79 97 02/21/19 21:13 02/21/19 23:57 02/21/19 23:57 02/21/19 21:13 02/21/19 21:13 Results - Labs CBC & Chem 7: 02/21/19 21:22 02/21/19 21:22 Labs: Laboratory Last Values WBC 4.9 K/mm3 (4.5-11.0) 02/21/19 21:22 RBC 3.75 M/mm3 (3.65-5.03) 02/21/19 21:22 Hgb 10.3 gm/dl (11.8-15.2) L 02/21/19 21:22 Hct 31.5 % (35.5-45.6) L 02/21/19 21:22 MCV 84 fl (84-94) 02/21/19 21:22 MCH 28 pg (28-32) 02/21/19 21:22 MCHC 33 % (32-34) 02/21/19 21:22 RDW 19.4 % (13.2-15.2) H 02/21/19 21:22 Plt Count 227 K/mm3 (140-440) 02/21/19 21:22 Lymph % (Auto) 17.8 % (13.4-35.0) 02/21/19 21:22 [place] % (Auto) 12.6 % (0.0-7.3) H 02/21/19 21:22 Eos % (Auto) 1.1 % (0.0-4.3) 02/21/19 21:22 Baso % (Auto) 1.0 % (0.0-1.8) 02/21/19 21:22 Lymph # 0.9 K/mm3 (1.2-5.4) L 02/21/19 21:22 [place] # 0.6 K/mm3 (0.0-0.8) 02/21/19 21:22 Eos # 0.1 K/mm3 (0.0-0.4) 02/21/19 21:22 Baso # 0.0 K/mm3 (0.0-0.1) 02/21/19 21:22 Seg Neutrophils % 67.5 % (40.0-70.0) 02/21/19 21:22 Seg Neutrophils # 3.3 K/mm3 (1.8-7.7) 02/21/19 21:22 PT 23.8 Sec. (12.2-14.9) H 02/21/19 21:28 INR 2.18 (0.87-1.13) H 02/21/19 21:28 APTT 49.6 Sec. (24.2-36.6) H 02/21/19 21:28 Sodium 139 mmol/L (137-145) 02/21/19 21:22 Potassium 4.0 mmol/L (3.6-5.0) 02/21/19 21:22 Chloride 98.4 mmol/L (98-107) 02/21/19 21:22 Carbon Dioxide 30 mmol/L (22-30) 02/21/19 21:22 15 mmol/L 02/21/19 21:22 BUN 21 mg/dL (9-20) H 02/21/19 21:22 1.6 mg/dL (0.8-1.5) H 02/21/19 21:22 Estimated GFR 54 ml/min 02/21/19 21:22 13 % 02/21/19 21:22 Glucose 106 mg/dL (75-100) H 02/21/19 21:22 Calcium 8.7 mg/dL (8.4-10.2) 02/21/19 21:22 < 0.010 ng/mL (0.00-0.029) 02/21/19 21:28 NT-Pro-B Natriuret Pep 2572 pg/mL (0-900) H 02/21/19 21:28 - Imaging and Cardiology Chest x-ray: report reviewed (Cardiomegaly; Mild degree bilateral pleural effusions unchanged since ), image reviewed Assessment and Plan Assessment and plan: 54-year-old -Thai who with history of alcohol abuse, drug and alcohol use currently in recovery program, CHF, mitral valve replacement, CAD, CVA, AL, pacemaker in situ who presents to [facility] ED with complaints of bilateral lower extremity edema L>R and shortness of breath for the past 3 days. On exam pt has discoloration to ble with weak pulses. CXR showed mild cardiomegaly and stable mild bilateral pleural effusion when compared to previous study done on 01/31. EKG unrevealing for acute ischemic abnormalities. Will admit to Telemetry. Acute exacerbation of CHF MVR -mechanical valve on Coumadin, subtherapeutic CAD ??PAD HLD hx AL hx CVA Pacemaker in situ Chronic anemia CK 3 Elevated BNP History of trauma/EtOH abuse-in recovery program History of tobacco abuse Plan: Continue supportive care IV Lasix 40 mg twice a day Pt INR is subtherapeutic; Continue Coumadin 5 mg daily, Start heparin drip Cardiology consult. Monitor renal function, avoid nephrotoxic agents Nephrology consult pending Bilateral lower extremity arterial duplex pending Vascular consult pending Monitor BP Start BB (metoprolol 25mg daily) hold JUSTINO for now Lipitor 20 at bedtime Lipid panel pending Urine Drug Screen pending Counseled for smoking cessation DVT PPX on heparin gtt and by coumadin Home medication reconciliation pending Advance Directives: No VTE prophylaxis?: Chemical Plan of care discussed with patient/family: Yes
--- NOTE | 2019-02-22 00:54 | Event Note ---
Date: 02/22/19 54-year-old man with history of CHF, status post pacemaker and mechanical mitral valve replacements, CAD, history of CVA, who presents with shortness of breath and edema, he has just moved from [place] to [place]. Does not have doctors here CHF exacerbation; IV Lasix, optimize medications Chronic kidney disease stage III; nephrology consult, avoid nephrotoxins, creatinine is actually improved compared to previous encounters Subtherapeutic INR, given mechanical valve.; Heparin drip until INR is greater than 2.5 History of polysubstance abuse; follow-up [facility]
[2019-02-22 01:07] LABS: Amphetamine Screen,Urine PRESUMPTIVE NEGATIVE; Benzodiazepines Screen,Urine PRESUMPTIVE NEGATIVE; Cannabinoid Screen,Urine PRESUMPTIVE NEGATIVE; Cocaine Screen,Urine PRESUMPTIVE NEGATIVE; Methadone Screen,Urine PRESUMPTIVE NEGATIVE; Opiate Screen,Urine PRESUMPTIVE NEGATIVE
[2019-02-22] MEDS: TYLENOL #3 PO PRN ×3 (02:06→18:52)
[2019-02-22] MEDS: HEPARIN/ 0.45% NACL-25,000 UNIT/500 ML 25,000 UNIT/500 ML BAG IV SCH ×2 (02:07→22:23)
[2019-02-22 05:34] LABS: Chol/HDL Ratio 2.45 %
[2019-02-22] MEDS: LASIX IV SCH ×2 (05:51→18:00)
[2019-02-22] MEDS: TOPROL XL PO SCH (11:22)
[2019-02-22] MEDS: COLACE PO SCH ×2 (11:22→22:22)
--- NOTE | 2019-02-22 11:49 | Consultation ---
History of Present Illness Consult date: 02/22/19 Requesting physician: CHRISSY OVERTON Consult reason: congestive heart failure History of present illness: The pt is a 54 YO male with a past medical history of CMP, HFrEF, AICD in situ (placed 2014), mechanical mitral valve (2014), anticoagulated on Coumadin, HTN, former ETOH use. He is previously unknown to our practice. Pt recently moved to [place] from [place] and briefly saw a dress cutter in [place], [place]. He presented with c/o SOB and BLE swelling and pain for several days prior to arrival. He denies any chest pain, palpitations, n/v, diaphoresis, dizziness or syncope. He reports compliance with his home medication regimen, including coumadin. He denies any prior CAD or AMI. 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) Medications and Allergies Allergies Allergy/AdvReac Type Severity Reaction Status Date / Time Penicillins Allergy Itching Verified 01/30/19 21:44 Home Medications Medication Instructions Recorded Confirmed Last Taken Type Acetaminophen/Codeine [Tylenol 1 tab PO Q6H PRN #12 tab 01/31/19 Unknown Rx /Codeine # 3 tab] Diclofenac 1% [Diclofenac 1% 1 applicatio TP QID PRN #1 tube 01/31/19 Unknown Rx topical gel] Active Meds: Active Medications Acetaminophen (Tylenol) 650 mg PO Q4H PRN PRN Reason: Pain MILD(1-3)/Fever >100.5/ROWAN Acetaminophen/Codeine Phosphate (Tylenol #3) 1 tab PO Q6H PRN PRN Reason: pain Last Admin: 02/22/19 11:22 Dose: 1 tab Documented by: Albuterol (Proventil) 2.5 mg IH Q3HRT PRN PRN Reason: Shortness Of Breath Atorvastatin Calcium (Lipitor) 20 mg PO QHS [facility] Diclofenac Sodium (Diclofenac 1%) 1 applic TP QID PRN PRN Reason: pain Docusate Sodium (Colace) 100 mg PO BID [facility] Last Admin: 02/22/19 11:22 Dose: 100 mg Documented by: Furosemide (Lasix) 40 mg IV 0600,1800 [facility] Last Admin: 02/22/19 05:51 Dose: 40 mg Documented by: Heparin Sodium/Sodium Chloride (Heparin/ 0.45% Nacl-25,000 Unit/500 Ml) 25,000 unit in 500 mls @ 20 mls/hr IV TITRATE [facility]; Protocol Last Admin: 02/22/19 02:07 Dose: 1,000 units/hr, 20 mls/hr Documented by: Metoprolol Succinate (Toprol Xl) 25 mg PO QDAY [facility] Last Admin: 02/22/19 11:22 Dose: 25 mg Documented by: Nitroglycerin (Nitrostat) 0.4 mg SL .Q5MIN PRN PRN Reason: Chest Pain Ondansetron HCl (Zofran) 4 mg IV Q8H PRN PRN Reason: Nausea And Vomiting Sodium Chloride (Sodium Chloride Flush Syringe 10 Ml) 10 ml IV BID [facility] Sodium Chloride (Sodium Chloride Flush Syringe 10 Ml) 10 ml IV PRN PRN PRN Reason: LINE FLUSH Warfarin Sodium (Coumadin) 6 mg PO 1700 [facility]; Protocol Review of Systems Constitutional: no weight loss, no weight gain, no fever, no chills, no sweats Ears, nose, mouth and throat: no ear pain, no nose pain, no sinus pressure, no sinus pain Cardiovascular: edema, shortness of breath, dyspnea on exertion, high blood pressure, leg edema, no chest pain, no palpitations, no rapid/irregular heart beat, no syncope, no lightheadedness Respiratory: shortness of breath, dyspnea on exertion, no cough, no congestion, no pleurisy, no pain on inspiration Gastrointestinal: no abdominal pain, no nausea, no vomiting, no diarrhea, no constipation, no change in bowel habits Genitourinary Male: no dysuria, no hematuria, no flank pain, no discharge, no urinary frequency, no urinary hesitancy Musculoskeletal: no neck stiffness, no neck pain, no shooting arm pain, no arm numbness/tingling, no low back pain, no shooting leg pain Integumentary: no rash, no pruritis, no redness, no sores, no wounds Neurological: no head injury, no paralysis, no weakness, no parathesias, no numbness, no tingling, no seizures, no syncope Psychiatric: no anxiety Endocrine: no cold intolerance, no heat intolerance Hematologic/Lymphatic: no easy bruising, no easy bleeding Allergic/Immunologic: no urticaria, no wheezing Physical Examination Vital Signs Temp Pulse Resp BP Pulse Ox 97.6 F 69 14 110/79 97 02/21/19 21:13 02/21/19 21:13 02/21/19 21:13 02/21/19 21:13 02/21/19 21:13 General appearance: no acute distress HEENT: Positive: PERRL, Normocephaly, Mucus Membranes Moist Neck: Positive: neck supple, trachea midline Cardiac: Positive: Reg Rate and Rhythm, S1/S2, Other (valve click) Lungs: Positive: Decreased Breath Sounds Neuro: Positive: Grossly Intact Abdomen: Negative: Tender Skin: Negative: Rash Extremities: Present: +1 Edema (BLE with chronic skin changes noted) Results 02/21/19 21:22 02/21/19 21:22 Coagulation 02/21/19 Range/Units 21:28 PT 23.8 H (12.2-14.9) Sec. INR 2.18 H (0.87-1.13) APTT 49.6 H (24.2-36.6) Sec. Lipids 02/22/19 Range/Units 04:32 Triglycerides 46 (2-149) mg/dL Cholesterol 98 (50-199) mg/dL HDL Cholesterol 40 (40-59) mg/dL Cholesterol/HDL Ratio 2.45 % CBC 02/21/19 Range/Units 21:22 WBC 4.9 (4.5-11.0) K/mm3 RBC 3.75 (3.65-5.03) M/mm3 Hgb 10.3 L (11.8-15.2) gm/dl Hct 31.5 L (35.5-45.6) % Plt Count 227 (140-440) K/mm3 Lymph # 0.9 L (1.2-5.4) K/mm3 [place] # 0.6 (0.0-0.8) K/mm3 Eos # 0.1 (0.0-0.4) K/mm3 Baso # 0.0 (0.0-0.1) K/mm3 Comprehensive Metabolic Panel 02/21/19 Range/Units 21:22 Sodium 139 (137-145) mmol/L Potassium 4.0 (3.6-5.0) mmol/L Chloride 98.4 (98-107) mmol/L Carbon Dioxide 30 (22-30) mmol/L BUN 21 H (9-20) mg/dL Creatinine 1.6 H (0.8-1.5) mg/dL Glucose 106 H (75-100) mg/dL Calcium 8.7 (8.4-10.2) mg/dL - Imaging and Cardiology Echo: pending EKG: report reviewed, image reviewed EKG interpretations - Telemetry EKG Rhythm: Sinus Rhythm - EKG Sinus rhythms and dysrhythmias: sinus rhythm Assessment and Plan Agree with present cardiac management. No ACEI/ARB at this time in setting of renal insufficiency. Obtain echo. Cont coumadin and heparin gtt with tx INR 2.5- 3.5. The patient has been seen in conjunction with Dr. Graciela Gaston who agrees with the assessment and plan of care. - Patient Problems (1) Acute HFrEF (heart failure with reduced ejection fraction) Current Visit: Yes Status: Acute (2) Cardiomyopathy Current Visit: Yes Status: Suspected (3) Automatic implantable cardioverter-defibrillator in situ Current Visit: Yes Status: Chronic (4) H/O mitral valve replacement with mechanical valve Current Visit: Yes Status: Chronic (5) Anticoagulated on Coumadin Current Visit: Yes Status: Chronic (6) HTN (hypertension) Current Visit: Yes Status: Chronic (7) Renal insufficiency Current Visit: Yes Status: Acute
--- NOTE | 2019-02-22 11:50 | Consultation ---
History of Present Illness - Reason for Consult Consult date: 02/22/19 leg pain - History of Present Illness Patient with a history of coronary artery disease with significant cardiac surgical history. Per patient, following his cardiac surgery, he began to notice lower extremity pain. On admission, an arterial duplex as well as venous ultrasound were performed. Patient has no evidence of DVT and adequate arterial inflow. On examination, the patient has hemosiderin staining, dry skin in bilateral lower extremities as well as +1 pitting edema. 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) Medications and Allergies Allergies Allergy/AdvReac Type Severity Reaction Status Date / Time Penicillins Allergy Itching Verified 01/30/19 21:44 Home Medications Medication Instructions Recorded Confirmed Last Taken Type Acetaminophen/Codeine [Tylenol 1 tab PO Q6H PRN #12 tab 01/31/19 Unknown Rx /Codeine # 3 tab] Diclofenac 1% [Diclofenac 1% 1 applicatio TP QID PRN #1 tube 01/31/19 Unknown Rx topical gel] Active Meds: Active Medications Acetaminophen (Tylenol) 650 mg PO Q4H PRN PRN Reason: Pain MILD(1-3)/Fever >100.5/ROWAN Acetaminophen/Codeine Phosphate (Tylenol #3) 1 tab PO Q6H PRN PRN Reason: pain Last Admin: 02/22/19 11:22 Dose: 1 tab Documented by: Albuterol (Proventil) 2.5 mg IH Q3HRT PRN PRN Reason: Shortness Of Breath Atorvastatin Calcium (Lipitor) 20 mg PO QHS [facility] Diclofenac Sodium (Diclofenac 1%) 1 applic TP QID PRN PRN Reason: pain Docusate Sodium (Colace) 100 mg PO BID [facility] Last Admin: 02/22/19 11:22 Dose: 100 mg Documented by: Furosemide (Lasix) 40 mg IV 0600,1800 [facility] Last Admin: 02/22/19 05:51 Dose: 40 mg Documented by: Heparin Sodium/Sodium Chloride (Heparin/ 0.45% Nacl-25,000 Unit/500 Ml) 25,000 unit in 500 mls @ 20 mls/hr IV TITRATE [facility]; Protocol Last Admin: 02/22/19 02:07 Dose: 1,000 units/hr, 20 mls/hr Documented by: Metoprolol Succinate (Toprol Xl) 25 mg PO QDAY [facility] Last Admin: 02/22/19 11:22 Dose: 25 mg Documented by: Nitroglycerin (Nitrostat) 0.4 mg SL .Q5MIN PRN PRN Reason: Chest Pain Ondansetron HCl (Zofran) 4 mg IV Q8H PRN PRN Reason: Nausea And Vomiting Sodium Chloride (Sodium Chloride Flush Syringe 10 Ml) 10 ml IV BID [facility] Sodium Chloride (Sodium Chloride Flush Syringe 10 Ml) 10 ml IV PRN PRN PRN Reason: LINE FLUSH Warfarin Sodium (Coumadin) 6 mg PO 1700 [facility]; Protocol Review of Systems All systems: negative Exam - Constitutional Vitals: Temp Pulse Resp BP Pulse Ox 97.8 F 68 20 113/66 97 02/22/19 07:18 02/22/19 11:22 02/22/19 11:22 02/22/19 07:18 02/22/19 09:42 General appearance: Present: no acute distress - EENT Eyes: Present: EOM intact ENT: hearing intact - Neck Neck: Present: supple, normal ROM - Respiratory Respiratory effort: normal - Extremities Extremities: no ischemia, pulses intact Extremity abnormal: edema - Abdominal General gastrointestinal: Present: deferred Male genitourinary: Present: deferred - Rectal Rectal Exam: deferred - Psychiatric Psychiatric: appropriate mood/affect, cooperative Results - Labs CBC & Chem 7: 02/21/19 21:22 02/21/19 21:22 Labs: Abnormal lab results 02/21/19 02/21/19 02/21/19 Range/Units 21:22 21:22 21:28 Hgb 10.3 L (11.8-15.2) gm/dl Hct 31.5 L (35.5-45.6) % RDW 19.4 H (13.2-15.2) % [place] % (Auto) 12.6 H (0.0-7.3) % Lymph # 0.9 L (1.2-5.4) K/mm3 PT (12.2-14.9) Sec. INR (0.87-1.13) APTT (24.2-36.6) Sec. BUN 21 H (9-20) mg/dL Creatinine 1.6 H (0.8-1.5) mg/dL Glucose 106 H (75-100) mg/dL POC Glucose (70-105) NT-Pro-B Natriuret Pep 2572 H (0-900) pg/mL 02/21/19 02/22/19 Range/Units 21:28 11:32 Hgb (11.8-15.2) gm/dl Hct (35.5-45.6) % RDW (13.2-15.2) % [place] % (Auto) (0.0-7.3) % Lymph # (1.2-5.4) K/mm3 PT 23.8 H (12.2-14.9) Sec. INR 2.18 H (0.87-1.13) APTT 49.6 H (24.2-36.6) Sec. BUN (9-20) mg/dL Creatinine (0.8-1.5) mg/dL Glucose (75-100) mg/dL POC Glucose 117 H (70-105) NT-Pro-B Natriuret Pep (0-900) pg/mL - Imaging and Cardiology Venous US: image reviewed Assessment and Plan The patient appears to be volume overloaded contributing to his lower extremity swelling and pain. At baseline, the patient has sequela of venous hypertension. Will order a venous ultrasound with reflux. Diuresis noted. The patient will need a greenskeeper know that he is moved to the area.
--- NOTE | 2019-02-22 12:24 | Consultation ---
History of Present Illness - History of Present Illness Thank you for the consultation ! Patient was evaluated today My assessment and plan are as follows Renal failure in a patient who is 54-year-old and has multiple risk factors for underlying chronic kidney disease and progression over time in January 2019 his creatinine was 2.0 current creatinine is around 1.6 likely he may have underlying chronic kidney disease will do a renal ultrasonogram urinalysis as well as other studies, in the absence of proper renal care he is high risk for progression to end-stage renal disease this was discussed with the patient Hypertension: Management was discussed at this point would not start any form of JUSTINO inhibitors or angiotensin receptor mingo until his stable and is more compliant Congestive heart failure: Currently flared need estimation of ejection fraction follow-up with cardiology strict intake and output and daily weight monitoring and avoidance of processed food needs congestive heart failure education formally with the dietitian as well Anemia: Etiology unclear requires further workup possibly a GI consultation even in the outpatient setting Patient was advised to comply with treatment recommendation and take responsib ility for his own health care. He was also advised to educate about all the health related issues Upon discharge he will need to make a follow-up appointment in our office Renal prognosis long-term guarded/poor will depend on patient's compliance and involvement in his care Had a detailed discussion with patient about the plan of care from renal standpoint. All questions were answered labs and pertinent imaging findings were explained to the patient and simple Croatian. Prognosis: Guarded We'll continue to follow and make recommendation from renal standpoint Thank you for the consultation. History of presenting illness; Patient is 54-year-old male who has been admitted here with congestive heart failure exacerbation,He has recently moved from [place] and currently does not have any physicians to see a regular basis During this admission his creatinine has been noted to be around 1.6 which was 2.0 in January 2019, he does not have a dedicated renal ultrasonogram, he also does not have any urinalysis, discussed with patient noted to be noncompliant with diet as far as congestive heart failure is concerned Patient does have history of drug and alcohol abuse and dependence and currently is in recovery program Patient also noted to be anemic but denies having any history of blood loss Past medical history significant for Congestive heart failure Hypertension CVA Acute myocardial infarction Alcohol and drug abuse mitral valve replacement Renal failure Anemia Leg swelling Noncompliance with diet Current allergies penicillin Home medication present medication: Reviewed Social history: Reviewed Family history: Reviewed Review of system: Positive for worsening swelling in both lower extremity shortness of breath, Physical examination Vitals: Reviewed from this admission Gen.: No acute distress HEENT: Normocephalic/atraumatic skull oral mucosa moist minimal pallor no icterus or uremic order Neck: Supple without any thyromegaly nodular mass or JVD Chest: Clear to auscultation anteriorly few faint basilar crackles otherwise unremarkable Heart: Regular rate and rhythm S1 and S2 heard no S3-S4 no pericardial rub Abdomen: Soft nontender no guarding rigidity rebound organomegaly no suprapubic masses, no CVA tenderness no renal bruit Back: No CVA tenderness Derm: No petechial rashes dry skin Extremity: Pulses palpable no peripheral cyanosis, 1+ edema dry skin Neurological: Alert awake follows commands Psychiatric: No agitation and aggression Labs and x-rays: Were reviewed from this admission 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) Medications and Allergies Allergies Allergy/AdvReac Type Severity Reaction Status Date / Time Penicillins Allergy Itching Verified 01/30/19 21:44 Home Medications Medication Instructions Recorded Confirmed Last Taken Type Acetaminophen/Codeine [Tylenol 1 tab PO Q6H PRN #12 tab 01/31/19 02/23/19 Unknown Rx /Codeine # 3 tab] Diclofenac 1% [Diclofenac 1% 1 applicatio TP QID PRN #1 tube 01/31/19 02/23/19 Unknown Rx topical gel] Active Meds: Active Medications Acetaminophen (Tylenol) 650 mg PO Q4H PRN PRN Reason: Pain MILD(1-3)/Fever >100.5/ROWAN Acetaminophen/Codeine Phosphate (Tylenol #3) 1 tab PO Q6H PRN PRN Reason: pain Last Admin: 02/22/19 11:22 Dose: 1 tab Documented by: Albuterol (Proventil) 2.5 mg IH Q3HRT PRN PRN Reason: Shortness Of Breath Atorvastatin Calcium (Lipitor) 20 mg PO QHS [facility] Diclofenac Sodium (Diclofenac 1%) 1 applic TP QID PRN PRN Reason: pain Docusate Sodium (Colace) 100 mg PO BID [facility] Last Admin: 02/22/19 11:22 Dose: 100 mg Documented by: Furosemide (Lasix) 40 mg IV 0600,1800 [facility] Last Admin: 02/22/19 05:51 Dose: 40 mg Documented by: Heparin Sodium/Sodium Chloride (Heparin/ 0.45% Nacl-25,000 Unit/500 Ml) 25,000 unit in 500 mls @ 20 mls/hr IV TITRATE [facility]; Protocol Last Admin: 02/22/19 02:07 Dose: 1,000 units/hr, 20 mls/hr Documented by: Metoprolol Succinate (Toprol Xl) 25 mg PO QDAY [facility] Last Admin: 02/22/19 11:22 Dose: 25 mg Documented by: Nitroglycerin (Nitrostat) 0.4 mg SL .Q5MIN PRN PRN Reason: Chest Pain Ondansetron HCl (Zofran) 4 mg IV Q8H PRN PRN Reason: Nausea And Vomiting Sodium Chloride (Sodium Chloride Flush Syringe 10 Ml) 10 ml IV BID [facility] Sodium Chloride (Sodium Chloride Flush Syringe 10 Ml) 10 ml IV PRN PRN PRN Reason: LINE FLUSH Warfarin Sodium (Coumadin) 6 mg PO 1700 [facility]; Protocol Exam - Vital Signs Vital signs: Vital Signs Temp Pulse Resp BP Pulse Ox 97.6 F 69 14 110/79 97 02/21/19 21:13 02/21/19 21:13 02/21/19 21:13 02/21/19 21:13 02/21/19 21:13 Results - Lab Results 02/23/19 07:19 02/23/19 07:19 Most recent lab results Calcium 8.7 mg/dL (8.4-10.2) 02/21/19 21:22
--- NOTE | 2019-02-22 14:12 | Vascular Lab Report ---
PROCEDURE: VL VENOUS DUPLEX LE BILAT TECHNIQUE: Duplex Doppler sonography of the BILATERAL lower extremities. Iniguez scale imaging with and without compression, spectral waveform analysis with and without augmentation, and color flow Dopple r were employed. HISTORY: LE edema COMPARISONS: None FINDINGS: RIGHT LOWER EXTREMITY: Deep Venous Thrombus: None Superficial Venous Thrombus: None Venous valvular incompetence: None Soft tissue abnormality: None LEFT LOWER EXTREMITY: Deep Venous Thrombus: Peripheral, nonocclusive echogenic thrombus in the left popliteal vein. Remain sade of the deep veins are patent. Superficial Venous Thrombus: None Venous valvular incompetence: None Soft tissue abnormality: None IMPRESSION: Chronic nonocclusive deep venous thrombosis in the left popliteal vein. No acute deep venous thrombosis. This document is electronically signed by Silvia Lehman MD., February 22 2019 02:10:27 PM ET
--- NOTE | 2019-02-22 14:19 | Vascular Lab Report ---
PROCEDURE: VL ARTERIAL DUPLEX LE BILAT TECHNIQUE: Duplex Doppler ultrasound of either bilateral lower extremity arteries or arterial bypass grafts was performed with image documentation. HISTORY: PAD, weak pulse COMPARISONS: None . FINDINGS: RIGHT LOWER EXTREMITY: Arterial waveforms: Triphasic . Thrombus: None . Stenosis: None . Color signal: Normal . Significant segmental velocity differential: None . Arterial bypass graft: Not present .Stenosis: None . Peak systolic velocities (cm/sec) are as follows: Right external iliac artery: 106.4 Right common femoral artery: 74.4 Right superficial femoral artery: 91.1 Right profunda branch: 69.4 Right popliteal artery: 65.8 Right posterior tibial artery: 70.9 Right anterior tibial artery: 49.1 Right dorsalis pedis artery: 53.8 LEFT LOWER EXTREMITY: Arterial waveforms: Triphasic . Thrombus: None . Stenosis: None . Color signal: Normal . Significant segmental velocity differential: None . Arterial bypass graft: Not present .Stenosis: None . Peak systolic velocities (cm/sec) are as follows: Left external iliac artery: 123.1 Left common femoral artery: 88.4 Left superficial femoral artery: 104.9 Left profunda branch: 87.6 Left popliteal artery: 57.3 Left posterior tibial artery: 79.8 Left anterior tibial artery: 82.9 Left dorsalis pedis artery: 55.5 IMPRESSION: No evidence of significant arterial insufficiency in the lower extremities. This document is electronically signed by Silvia Lehman MD., February 22 2019 02:17:51 PM ET
[2019-02-22 14:34] LABS: % Iron Saturation 7.94 %
--- NOTE | 2019-02-22 15:32 | Progress Note ---
Assessment and Plan Assessment and plan: Patient is a 54-year-old -[place] man from [place] with a history of alcohol abuse, drug and alcohol use currently in recovery program, CHF, MECHANICAL mitral valve replacement, CAD, CVA, DE and pacemaker in situ who presents to [facility] ED with complaints of bilateral lower extremity edema L>R and s hortness of breath. CXR showed mild cardiomegaly and stable mild bilateral pleural effusion when compared to previous study done on 01/31. EKG unrevealing for acute ischemic abnormalities. Will admit to Telemetry. Acute exacerbation of CHF MVR -mechanical valve on Coumadin, subtherapeutic CAD ??PAD HLD hx DE hx CVA Pacemaker in situ Chronic anemia CK 3 Elevated BNP History of trauma/EtOH abuse-in recovery program History of tobacco abuse Plan: Continue supportive care IV Lasix 40 mg twice a day Pt INR is subtherapeutic; Continue Coumadin 5 mg daily, Start heparin drip Cardiology consult. Monitor renal function, avoid nephrotoxic agents Nephrology consult pending Bilateral lower extremity arterial duplex pending Vascular consult pending Monitor BP Start BB (metoprolol 25mg daily) hold JUSTINO for now Lipitor 20 at bedtime Lipid panel pending Urine Drug Screen pending Counseled for smoking cessation DVT PPX on heparin gtt and by coumadin Home medication reconciliation pending prolonged inpatient services 32 minutes History Interval history: Patient was seen and examined. Follow-up on current diagnosis of CHF. No overnight events reported to me. Patient denies any chest pain, shortness breath, nausea/vomiting or severe headaches. Imaging, nursing note, chart, labs and old chart reviewed. Discussed with patient. Gen: WDWN, NAD, Awake, Alert, Orientated HEENT: NCAT, EOMI, PERRL, OP Clear Neck: supple, no adenopathy, no thyromegaly, no JVD CVS/Heart: RRR, normal S1S2, pulses present bilaterally Chest/Lungs: diminished bs bilateral with crackles, Symmetrical chest expansion, good air entry bilaterally GI/Abdomen: soft, NTND, good bowel sounds, no guarding or rebound /Bladder: no suprapubic tenderness, no CVA or paraspinal tenderness Extermity/Skin: +1 ble pitting edema, no obvious rash MSK: FROM x 4 Neuro: CN 2-12 grossly intact, no new focal deficits Psych: [facility] Hospitalist Physical - Constitutional Vitals: Temp Pulse Resp BP Pulse Ox 97.7 F 61 18 119/77 97 02/22/19 11:52 02/22/19 11:52 02/22/19 11:52 02/22/19 11:52 02/22/19 11:52 General appearance: Present: no acute distress Results - Labs CBC & Chem 7: 02/21/19 21:22 02/21/19 21:22 Labs: Laboratory Last Values WBC 4.9 K/mm3 (4.5-11.0) 02/21/19 21:22 RBC 3.75 M/mm3 (3.65-5.03) 02/21/19 21:22 Hgb 10.3 gm/dl (11.8-15.2) L 02/21/19 21:22 Hct 31.5 % (35.5-45.6) L 02/21/19 21:22 MCV 84 fl (84-94) 02/21/19 21:22 MCH 28 pg (28-32) 02/21/19 21:22 MCHC 33 % (32-34) 02/21/19 21:22 RDW 19.4 % (13.2-15.2) H 02/21/19 21:22 Plt Count 227 K/mm3 (140-440) 02/21/19 21:22 Lymph % (Auto) 17.8 % (13.4-35.0) 02/21/19 21:22 [place] % (Auto) 12.6 % (0.0-7.3) H 02/21/19 21:22 Eos % (Auto) 1.1 % (0.0-4.3) 02/21/19 21:22 Baso % (Auto) 1.0 % (0.0-1.8) 02/21/19 21:22 Lymph # 0.9 K/mm3 (1.2-5.4) L 02/21/19 21:22 [place] # 0.6 K/mm3 (0.0-0.8) 02/21/19 21:22 Eos # 0.1 K/mm3 (0.0-0.4) 02/21/19 21:22 Baso # 0.0 K/mm3 (0.0-0.1) 02/21/19 21:22 Seg Neutrophils % 67.5 % (40.0-70.0) 02/21/19 21:22 Seg Neutrophils # 3.3 K/mm3 (1.8-7.7) 02/21/19 21:22 Percent Retic 0.96 % (0.78-2.58) 02/22/19 12:54 PT 23.8 Sec. (12.2-14.9) H 02/21/19 21:28 INR 2.18 (0.87-1.13) H 02/21/19 21:28 APTT 49.6 Sec. (24.2-36.6) H 02/21/19 21:28 Heparin Anti-Xa Level < 0.10 U.I./ml (0.3-0.7) L 02/22/19 12:54 Sodium 139 mmol/L (137-145) 02/21/19 21:22 Potassium 4.0 mmol/L (3.6-5.0) 02/21/19 21:22 Chloride 98.4 mmol/L (98-107) 02/21/19 21:22 Carbon Dioxide 30 mmol/L (22-30) 02/21/19 21:22 15 mmol/L 02/21/19 21:22 BUN 21 mg/dL (9-20) H 02/21/19 21:22 1.6 mg/dL (0.8-1.5) H 02/21/19 21:22 Estimated GFR 54 ml/min 02/21/19 21:22 13 % 02/21/19 21:22 Glucose 106 mg/dL (75-100) H 02/21/19 21:22 POC Glucose 117 (70-105) H 02/22/19 11:32 6.5 mg/dL (3.5-7.6) 02/22/19 12:54 Calcium 8.7 mg/dL (8.4-10.2) 02/21/19 21:22 Iron 25 ug/dL (49-181) L 02/22/19 12:54 TIBC 315 mcg/dL (250-450) 02/22/19 12:54 % Saturation 7.94 % 02/22/19 12:54 258 mg/dl (180-329) 02/22/19 12:54 < 0.010 ng/mL (0.00-0.029) 02/22/19 04:32 NT-Pro-B Natriuret Pep 2572 pg/mL (0-900) H 02/21/19 21:28 Triglycerides 46 mg/dL (2-149) 02/22/19 04:32 Cholesterol 98 mg/dL (50-199) 02/22/19 04:32 56 mg/dL (50-130) 02/22/19 04:32 40 mg/dL (40-59) 02/22/19 04:32 2.45 % 02/22/19 04:32 Vitamin B12 481.0 pg/mL (211-911) 02/22/19 12:54 Presumptive negative 02/22/19 00:48 Presumptive negative 02/22/19 00:48 Ur Barbiturates Screen Presumptive negative 02/22/19 00:48 Ur Phencyclidine Scrn Presumptive negative 02/22/19 00:48 Ur Amphetamines Screen Presumptive negative 02/22/19 00:48 U Benzodiazepines Scrn Presumptive negative 02/22/19 00:48 Presumptive negative 02/22/19 00:48 U Marijuana (THC) Screen Presumptive negative 02/22/19 00:48 Disclamer 02/22/19 00:48 Active Medications - Current Medications Current Medications: Generic Name Dose Route Start Last Admin Trade Name Freq PRN Reason Stop Dose Admin Acetaminophen 650 mg 02/22/19 00:04 Tylenol PO Q4H PRN Pain MILD(1-3)/Fever >100.5/ROWAN Acetaminophen/Codeine Phosphate 1 tab 02/21/19 23:10 02/22/19 11:22 Tylenol #3 PO 1 tab Q6H PRN Administration pain Albuterol 2.5 mg 02/22/19 00:04 Proventil IH Q3HRT PRN Shortness Of Breath Atorvastatin Calcium 20 mg 02/22/19 22:00 Lipitor PO QHS JEB Diclofenac Sodium 1 applic 02/21/19 23:10 Diclofenac 1% TP QID PRN pain Docusate Sodium 100 mg 02/22/19 10:00 02/22/19 11:22 Colace PO 100 mg BID JEB Administration Furosemide 40 mg 02/22/19 06:00 02/22/19 05:51 Lasix IV 40 mg 0600,1800 JEB Administration Heparin Sodium/Sodium Chloride 25,000 unit in 500 mls @ 20 mls/hr 02/22/19 01:00 02/22/19 02:07 Heparin/ 0.45% Nacl-25,000 Unit/500 Ml IV 1,000 units/hr TITRATE JEB 20 mls/hr Administration Protocol 1,000 UNITS/HR Metoprolol Succinate 25 mg 02/22/19 10:00 02/22/19 11:22 Toprol Xl PO 25 mg QDAY JEB Administration Nitroglycerin 0.4 mg 02/22/19 00:04 Nitrostat SL .Q5MIN PRN Chest Pain Ondansetron HCl 4 mg 02/22/19 00:04 Zofran IV Q8H PRN Nausea And Vomiting Sodium Chloride 10 ml 02/22/19 10:00 Sodium Chloride Flush Syringe 10 Ml IV BID JEB Sodium Chloride 10 ml 02/22/19 00:04 Sodium Chloride Flush Syringe 10 Ml IV PRN PRN LINE FLUSH Warfarin Sodium 6 mg 02/22/19 17:00 Coumadin PO 1700 [facility] Protocol Nutrition/Malnutrition Assess - Dietary Evaluation Nutrition/Malnutrition Findings: Nutrition Notes Start: 02/22/19 08:59 Freq: Status: Active Protocol: Document 02/22/19 08:59 LP (Rec: 02/22/19 09:01 LP [email or web address]) Nutrition Notes Initial or Follow up Brief Note Current Diagnosis CKD(stage I-IV),Coronary Artery Disease,Hypertension, Heart Failure,Stroke Current Diet Cardiac Labs/Tests Reviewed Pertinent Medications Lasix Coumadin Height 6 ft 3 in Weight 83 kg [place] Body Weight (kg) 89.09 BMI 22.8 Subjective/Other Information Screen for Coumadin. Pt has been on Coumadin and aware of diet. Pt states eating well [employer] and now. Pt denies nutrition needs at this time. Nutrition Intervention Revisit per MD consult or patient Sign Off request:
[2019-02-22] MEDS ORDERED: HEPARIN 10,000 UNITS/10 ML IV ONE (17:12)
--- NOTE | 2019-02-22 18:22 | Vascular Lab Report ---
PROCEDURE: VL VENOUS DUPLEX LE BILAT HISTORY: Venous ultrasound with reflux evaluation FINDINGS: Real-time ultrasound was performed with attention to the saphenous veins. Right greater saphenous vein: At confluence: 0.59 cm; No reflux Upper thigh: 0.28 cm; 0.34 seconds Mid thigh: 0.21 cm; no reflux Above knee 0.16 cm; no reflux At knee 0.11 cm; no reflux Below knee 0.17 cm; 2.22 seconds Mid calf 0.24 cm; 1.02 cm Right lesser saphenous vein at confluence 0.1 cm; 0.23 seconds Proximal calf 0.20 cm; 0.27 seconds Mid calf 0.23 cm; no reflux Distal cast 0.16 cm; no reflux Left greater saphenous vein At confluence 0.66 cm; 0.33 seconds Upper thigh 0.38 cm; 0.95 seconds Mid thigh 0.28 cm; 0.58 seconds Above knee 0.26 cm; 3.34 seconds At knee 0.22 cm; 1.51 cm Below knee 0.23 cm; 3.74 seconds Mid calf 0.16 cm; 0.55 seconds Lesser saphenous vein at confluence 0.25 cm; 0.6 cm Mid calf 0.23 cm; 0.32 seconds Distal calf 0.14 cm; no reflux IMPRESSION: Reflux is noted in the right greater saphenous vein at the proximal calf and midcalf Reflux of left greater saphenous vein and distal thigh to proximal calf This document is electronically signed by Jossue Canseco MD., February 22 2019 06:20:31 PM ET
[2019-02-22] MEDS: COUMADIN PO SCH (18:51)
[2019-02-22 20:58] LABS: Creatinine,Urine 14.5 mg/dL (0.1-20.0)
[2019-02-22 21:04] LABS: Bilirubin,Urine NEG (Negative); Blood,Urine NEG (Negative); Color,Urine Colorless (Yellow); Protein,Urine <15 mg/dL mg/dL (Negative); Urobilinogen,Urine < 2.0 mg/dL (<2.0); WBC,Urine < 1.0 /HPF (0.0-6.0)
[2019-02-22] MEDS: SODIUM CHLORIDE FLUSH SYRINGE 10 ML IV SCH ×2 (22:21→22:23)
[2019-02-23] MEDS: TYLENOL #3 PO PRN ×4 (00:53→23:39)
[2019-02-23] MEDS: LASIX IV SCH ×2 (06:30→20:07)
[2019-02-23 07:34] LABS: Basophils # (Auto) 0.1 K/mm3 (0.0-0.1); Basophils % (Auto) 1.5 % (0.0-1.8); Eosinophils # (Auto) 0.1 K/mm3 (0.0-0.4); Eosinophils % (Auto) 2.2 % (0.0-4.3); Hematocrit 32.7 % (35.5-45.6); Hemoglobin 10.5 gm/dl (11.8-15.2); Lymphocytes # (Auto) 1.3 K/mm3 (1.2-5.4); Lymphocytes % (Auto) 22.5 % (13.4-35.0); Mean Corpuscular HGB Conc 32 % (32-34); Mean Corpuscular Volume 82 fl (84-94); Monocytes # (Auto) 0.9 K/mm3 (0.0-0.8); Monocytes % (Auto) 14.8 % (0.0-7.3); Platelet Count 227 K/mm3 (140-440); Red Blood Count 3.96 M/mm3 (3.65-5.03); Red Cell Distribution Width 18.4 % (13.2-15.2)
[2019-02-23 07:56] LABS: BUN/Creatinine Ratio 12; Blood Urea Nitrogen 17 mg/dL (9-20); Calcium 8.4 mg/dL (8.4-10.2); Hemolysis Index 0
[2019-02-23 08:45] LABS: INR 2.12 (0.87-1.13)
[2019-02-23] MEDS ORDERED: HEPARIN 10,000 UNITS/10 ML IV NR (08:56)
--- NOTE | 2019-02-23 09:15 | Progress Note ---
Assessment and Plan Patient likely has a minimal amount of venous insufficiency with superimposed cardiac failure. His symptoms are resolving with diuresis. Patient will need to be optimized from a cardiac standpoint with follow-up now that he has moved to this area. Subjective Date of service: 02/23/19 Principal diagnosis: volume overload Interval history: Patient is clinically improved with decreased pain following diuresis. His venous ultrasound reflux was reviewed and it's only minimal reflux within the saphenous veins. There is enlargement of the common femoral veins bilaterally which may suggest deep venous disease. Objective - Constitutional Vitals: Vital Signs - 12hr 02/22/19 02/23/19 02/23/19 23:32 01:00 02:22 Temperature 98.0 F Pulse Rate 67 71 Respiratory 18 20 Rate Blood Pressure 128/72 O2 Sat by Pulse 95 Oximetry 02/23/19 04:22 Temperature 98.0 F Pulse Rate 63 Respiratory 18 Rate Blood Pressure 115/78 O2 Sat by Pulse 97 Oximetry General appearance: Present: no acute distress - EENT Eyes: EOM intact ENT: hearing intact - Neck Neck: supple, normal ROM - Respiratory Respiratory effort: normal - Breasts Breasts: deferred Extremities: abnormal Extremity abnormal: edema - Gastrointestinal General gastrointestinal: Present: deferred Rectal Exam: deferred - Genitourinary Male genitourinary: deferred - Psychiatric Psychiatric: cooperative - Labs CBC & Chem 7: 02/23/19 07:19 02/23/19 07:19 Labs: Abnormal lab results 02/22/19 02/22/19 02/22/19 Range/Units 11:32 12:54 12:54 Hgb (11.8-15.2) gm/dl Hct (35.5-45.6) % MCV (84-94) fl MCH (28-32) pg RDW (13.2-15.2) % [place] % (Auto) (0.0-7.3) % [place] # (0.0-0.8) K/mm3 PT (12.2-14.9) Sec. INR (0.87-1.13) Heparin Anti-Xa Level < 0.10 L (0.3-0.7) U.I./ml Chloride (98-107) mmol/L POC Glucose 117 H (70-105) Iron 25 L (49-181) ug/dL Urine pH (5.0-7.0) Urine Total Protein (5-11.8) mg/dL 02/22/19 02/22/19 02/22/19 Range/Units 20:48 Unknown Unknown Hgb (11.8-15.2) gm/dl Hct (35.5-45.6) % MCV (84-94) fl MCH (28-32) pg RDW (13.2-15.2) % [place] % (Auto) (0.0-7.3) % [place] # (0.0-0.8) K/mm3 PT (12.2-14.9) Sec. INR (0.87-1.13) Heparin Anti-Xa Level (0.3-0.7) U.I./ml Chloride (98-107) mmol/L POC Glucose 150 H (70-105) Iron (49-181) ug/dL Urine pH 8.0 H (5.0-7.0) Urine Total Protein < 4 L (5-11.8) mg/dL 02/23/19 02/23/19 02/23/19 Range/Units 00:13 07:19 07:19 Hgb 10.5 L (11.8-15.2) gm/dl Hct 32.7 L (35.5-45.6) % MCV 82 L (84-94) fl MCH 27 L (28-32) pg RDW 18.4 H (13.2-15.2) % [place] % (Auto) 14.8 H (0.0-7.3) % [place] # 0.9 H (0.0-0.8) K/mm3 PT (12.2-14.9) Sec. INR (0.87-1.13) Heparin Anti-Xa Level 0.28 L (0.3-0.7) U.I./ml Chloride 97.7 L (98-107) mmol/L POC Glucose (70-105) Iron (49-181) ug/dL Urine pH (5.0-7.0) Urine Total Protein (5-11.8) mg/dL 02/23/19 02/23/19 Range/Units 07:19 08:04 Hgb (11.8-15.2) gm/dl Hct (35.5-45.6) % MCV (84-94) fl MCH (28-32) pg RDW (13.2-15.2) % [place] % (Auto) (0.0-7.3) % [place] # (0.0-0.8) K/mm3 PT 23.3 H (12.2-14.9) Sec. INR 2.12 H (0.87-1.13) Heparin Anti-Xa Level < 0.10 L (0.3-0.7) U.I./ml Chloride (98-107) mmol/L POC Glucose (70-105) Iron (49-181) ug/dL Urine pH (5.0-7.0) Urine Total Protein (5-11.8) mg/dL Medications & Allergies - Medications Allergies/Adverse Reactions: Allergies Penicillins Allergy (Verified 01/30/19 21:44) Itching Home Medications: Home Medications Medication Instructions Recorded Confirmed Last Taken Type Acetaminophen/Codeine [Tylenol 1 tab PO Q6H PRN #12 tab 01/31/19 Unknown Rx /Codeine # 3 tab] Diclofenac 1% [Diclofenac 1% 1 applicatio TP QID PRN #1 tube 01/31/19 Unknown Rx topical gel] Active Medications: Generic Name Dose Route Start Last Admin Trade Name Freq PRN Reason Stop Dose Admin Acetaminophen 650 mg 02/22/19 00:04 Tylenol PO Q4H PRN Pain MILD(1-3)/Fever >100.5/ROWAN Acetaminophen/Codeine Phosphate 1 tab 02/21/19 23:10 02/23/19 00:53 Tylenol #3 PO 1 tab Q6H PRN Administration pain Albuterol 2.5 mg 02/22/19 00:04 Proventil IH Q3HRT PRN Shortness Of Breath Atorvastatin Calcium 20 mg 02/22/19 22:00 02/22/19 22:22 Lipitor PO 20 mg QHS JEB Administration Diclofenac Sodium 1 applic 02/21/19 23:10 Diclofenac 1% TP QID PRN pain Docusate Sodium 100 mg 02/22/19 10:00 02/22/19 22:22 Colace PO 100 mg BID JEB Administration Furosemide 40 mg 02/22/19 06:00 02/23/19 06:30 Lasix IV 40 mg 0600,1800 JEB Administration Heparin Sodium (Porcine) 3,200 unit 02/23/19 08:56 Heparin 10,000 Units/10 Ml IV 02/23/19 09:56 ONCE NR Heparin Sodium/Sodium Chloride 25,000 unit in 500 mls @ 20 mls/hr 02/22/19 01:00 02/23/19 08:49 Heparin/ 0.45% Nacl-25,000 Unit/500 Ml IV 1,500 units/hr TITRATE JEB 30 mls/hr Titration Protocol 1,000 UNITS/HR Metoprolol Succinate 25 mg 02/22/19 10:00 02/22/19 11:22 Toprol Xl PO 25 mg QDAY JEB Administration Nitroglycerin 0.4 mg 02/22/19 00:04 Nitrostat SL .Q5MIN PRN Chest Pain Ondansetron HCl 4 mg 02/22/19 00:04 Zofran IV Q8H PRN Nausea And Vomiting Sodium Chloride 10 ml 02/22/19 10:00 02/22/19 22:23 Sodium Chloride Flush Syringe 10 Ml IV 10 ml BID JEB Administration Sodium Chloride 10 ml 02/22/19 00:04 Sodium Chloride Flush Syringe 10 Ml IV PRN PRN LINE FLUSH Warfarin Sodium 6 mg 02/22/19 17:00 02/22/19 18:51 Coumadin PO 6 mg 1700 JEB Administration Protocol
--- NOTE | 2019-02-23 10:57 | Progress Note ---
Subjective Principal diagnosis: volume overload Interval history: Patient was seen today for follow-up on multiple renal related issues Events of this hospitalization noted Feeling much better creatinine has normalized Patient willing to make some diet and lifestyle changes Patient denies having any chest pain pressure or shortness of breath Vitals labs intake output medications were reviewed Social history: Reviewed Allergies: Reviewed Family history: Reviewed Physical examination HEENT: Oral mucosa moist no pallor or icterus Neck: Supple no JVD Chest: Clear to auscultation anteriorly CVS: Regular rate and rhythm S1 and S2 heard Abdomen: Soft nontender no suprapubic masses no organomegaly appreciable Extremity: Dry skin less than 1+ peripheral edema Musculoskeletal: No joint effusion noted in knees and ankle Neurological: Alert awake Dermatology: No petechial rashes Psychiatry: No evidence of any agitation and aggression noted Assessment and plan; Acute kidney injury: Patient's creatinine has completely normalized at 1.4 potassium is normal no evidence of any acidosis, urinalysis shows no evidence of any hematuria patient has less than 15 mg protein in the urine ratio is 4/14 no evidence of any hematuria renal ultrasonogram results currently pending Blood pressure is currently well controlled Anemia to be followed by primary team may need GI workup We'll continue to follow and make recommendation from renal standpoin Congestive heart failure discussed about options discussed about making diet and lifestyle changes altogether Advised to make an appointment office upon discharge, see primary care physician as well as nephrology Patient was adequately counseled and educated regarding multiple renal related issues Pertinent lab findings were discussed with patient and patient does exhibit good understanding of renal issues. We'll continue to follow and make recommendation from renal standpoint Objective - Vital Signs Vital signs: Vital Signs - 12hr 02/22/19 02/23/19 02/23/19 23:32 01:00 02:22 Temperature 98.0 F Pulse Rate 67 71 Respiratory 18 20 Rate Blood Pressure 128/72 Blood Pressure [Right] O2 Sat by Pulse 95 Oximetry 02/23/19 02/23/19 04:22 08:00 Temperature 98.0 F 97.9 F Pulse Rate 63 66 Respiratory 18 18 Rate Blood Pressure 115/78 Blood Pressure 132/93 [Right] O2 Sat by Pulse 97 96 Oximetry - Lab 02/23/19 07:19 02/23/19 07:19 Most recent lab results Calcium 8.4 mg/dL (8.4-10.2) 02/23/19 07:19 14.5 mg/dL (0.1-20.0) 02/22/19 Unknown < 4 mg/dL (5-11.8) L 02/22/19 Unknown Medications & Allergies - Medications Allergies/Adverse Reactions: Allergies Penicillins Allergy (Verified 01/30/19 21:44) Itching Home Medications: Home Medications Medication Instructions Recorded Confirmed Last Taken Type Acetaminophen/Codeine [Tylenol 1 tab PO Q6H PRN #12 tab 01/31/19 02/23/19 Unknown Rx /Codeine # 3 tab] Diclofenac 1% [Diclofenac 1% 1 applicatio TP QID PRN #1 tube 01/31/19 02/23/19 Unknown Rx topical gel] Active Medications: Generic Name Dose Route Start Last Admin Trade Name Freq PRN Reason Stop Dose Admin Acetaminophen 650 mg 02/22/19 00:04 Tylenol PO Q4H PRN Pain MILD(1-3)/Fever >100.5/ROWAN Acetaminophen/Codeine Phosphate 1 tab 02/21/19 23:10 02/23/19 09:27 Tylenol #3 PO 1 tab Q6H PRN Administration pain Albuterol 2.5 mg 02/22/19 00:04 Proventil IH Q3HRT PRN Shortness Of Breath Atorvastatin Calcium 20 mg 02/22/19 22:00 02/22/19 22:22 Lipitor PO 20 mg QHS JEB Administration Diclofenac Sodium 1 applic 02/21/19 23:10 Diclofenac 1% TP QID PRN pain Docusate Sodium 100 mg 02/22/19 10:00 02/22/19 22:22 Colace PO 100 mg BID JEB Administration Furosemide 40 mg 02/22/19 06:00 02/23/19 06:30 Lasix IV 40 mg 0600,1800 JEB Administration Heparin Sodium/Sodium Chloride 25,000 unit in 500 mls @ 20 mls/hr 02/22/19 01:00 02/23/19 09:21 Heparin/ 0.45% Nacl-25,000 Unit/500 Ml IV 1,600 units/hr TITRATE JEB 32 mls/hr Titration Protocol 1,000 UNITS/HR Metoprolol Succinate 25 mg 02/22/19 10:00 02/22/19 11:22 Toprol Xl PO 25 mg QDAY JEB Administration Nitroglycerin 0.4 mg 02/22/19 00:04 Nitrostat SL .Q5MIN PRN Chest Pain Ondansetron HCl 4 mg 02/22/19 00:04 Zofran IV Q8H PRN Nausea And Vomiting Sodium Chloride 10 ml 02/22/19 10:00 02/22/19 22:23 Sodium Chloride Flush Syringe 10 Ml IV 10 ml BID JEB Administration Sodium Chloride 10 ml 02/22/19 00:04 Sodium Chloride Flush Syringe 10 Ml IV PRN PRN LINE FLUSH Warfarin Sodium 6 mg 02/22/19 17:00 02/22/19 18:51 Coumadin PO 6 mg 1700 JEB Administration Protocol
--- NOTE | 2019-02-23 12:00 | Progress Note ---
Assessment and Plan Continue current cardiac management. INR currently 2.12, so recommend continuing to bridge from Heparin to Coumadin. Awaiting results of echocardiogram, which will guide further recommendations. Patient has been seen in conjunction with Dr. Ayala, who agrees with assessment and plan. - Patient Problems (1) Acute HFrEF (heart failure with reduced ejection fraction) Current Visit: Yes Status: Acute (2) Dyspnea Current Visit: Yes Status: Acute Qualifiers: Dyspnea type: shortness of breath Qualified Code(s): R06.02 - Shortness of breath; R06.00 - Dyspnea, unspecified; R06.01 - Orthopnea (3) Renal insufficiency Current Visit: Yes Status: Acute (4) Swelling of both lower extremities Current Visit: Yes Status: Acute (5) Anticoagulated on Coumadin Current Visit: Yes Status: Chronic (6) Automatic implantable cardioverter-defibrillator in situ Current Visit: Yes Status: Chronic (7) H/O mitral valve replacement with mechanical valve Current Visit: Yes Status: Chronic (8) HTN (hypertension) Current Visit: Yes Status: Chronic (9) Cardiomyopathy Current Visit: Yes Status: Suspected Subjective Date of service: 02/23/19 Principal diagnosis: volume overload Interval history: Patient lying in bed in NAD. No complaints. SR in 60s on telemetry. Net I/O - 2L over last 24 hours. Currently bridging from Heparin to Coumadin. Objective Last Vital Signs Temp 97.9 F 02/23/19 08:00 Pulse 66 02/23/19 08:00 Resp 18 02/23/19 08:00 BP 132/93 02/23/19 08:00 Pulse Ox 96 02/23/19 08:00 - Physical Examination General: No Apparent Distress HEENT: Positive: PERRL, Normocephaly, Mucus Membranes Moist Neck: Positive: neck supple, trachea midline Cardiac: Positive: Reg Rate and Rhythm Lungs: Positive: Normal Exam Neuro: Positive: Grossly Intact Abdomen: Positive: Unremarkable. Negative: Tender Skin: Positive: Clear. Negative: Rash Musculoskeletal: Normal Range of Motion Extremities: Present: +1 Edema (BLE with chronic skin changes noted) - Labs and Meds Coagulation 02/23/19 Range/Units 08:04 PT 23.3 H (12.2-14.9) Sec. INR 2.12 H (0.87-1.13) CBC 02/23/19 Range/Units 07:19 WBC 5.9 (4.5-11.0) K/mm3 RBC 3.96 (3.65-5.03) M/mm3 Hgb 10.5 L (11.8-15.2) gm/dl Hct 32.7 L (35.5-45.6) % Plt Count 227 (140-440) K/mm3 Lymph # 1.3 (1.2-5.4) K/mm3 [place] # 0.9 H (0.0-0.8) K/mm3 Eos # 0.1 (0.0-0.4) K/mm3 Baso # 0.1 (0.0-0.1) K/mm3 Comprehensive Metabolic Panel 02/23/19 Range/Units 07:19 Sodium 140 (137-145) mmol/L Potassium 3.6 (3.6-5.0) mmol/L Chloride 97.7 L (98-107) mmol/L Carbon Dioxide 30 (22-30) mmol/L BUN 17 (9-20) mg/dL Creatinine 1.4 (0.8-1.5) mg/dL Glucose 91 (75-100) mg/dL Calcium 8.4 (8.4-10.2) mg/dL - Imaging and Cardiology EKG: report reviewed, image reviewed Echo: pending - Telemetry EKG Rhythm: Sinus Rhythm - EKG Sinus rhythms and dysrhythmias: sinus rhythm
[2019-02-23] MEDS: COLACE PO SCH ×2 (12:32→22:39)
[2019-02-23] MEDS: TOPROL XL PO SCH (12:32)
[2019-02-23] MEDS: SODIUM CHLORIDE FLUSH SYRINGE 10 ML IV SCH ×2 (12:34→22:43)
--- NOTE | 2019-02-23 15:26 | Progress Note ---
Assessment and Plan Assessment and plan: Patient is a 54-year-old -Romanian man from [place] with a history of alcohol abuse currently in recovery program, tobacco dependency, CHF, MECHANICAL mitral valve replacement, CAD, CVA, [place] and pacemaker in situ who presented to [facility] ED with bilateral lower extremity edema L>R and shortness of breath. CXR showed mild cardiomegaly and stable mild bilateral pleural effusion when compared to previous study done on 01/31. EKG unrevealing for acute ischemic abnormalities. Will admit for CHF to Telemetry. Acute exacerbation of CHF suspected systolic, ECHO still pending: continue to diuresis MVR -mechanical valve on Coumadin, subtherapeutic: on iv heparin drip, monitor INR daily with a goal of 2.5-3.5, add ASA CAD by history: add ASA suspected PAD: Vascular consulted, input note, added ASA Anemia of Chronic Disease: monitor cbc closley CKD 3: monitor bmp closely Tobacco dependency: Counseled for smoking cessation hx HLD hx HI hx CVA hx Pacemaker in situ History of trauma/EtOH abuse-in recovery program History of tobacco abuse DVT PPX on heparin gtt and by coumadin History Interval history: Patient was seen and examined. Follow-up on current diagnosis of CHF. No over night events reported to me. Patient denies any chest pain, shortness breath, nausea/vomiting or severe headaches. Imaging, nursing note, chart, labs and old chart reviewed. Discussed with patient. Hospitalist Physical - Physical exam Narrative exam: Gen: WDWN, NAD, Awake, Alert, Orientated HEENT: NCAT, EOMI, PERRL, OP Clear Neck: supple, no adenopathy, no thyromegaly, no JVD CVS/Heart: RRR, normal S1S2, pulses present bilaterally Chest/Lungs: diminished bs bilateral with crackles, Symmetrical chest expansion, good air entry bilaterally GI/Abdomen: soft, NTND, good bowel sounds, no guarding or rebound /Bladder: no suprapubic tenderness, no CVA or paraspinal tenderness Extermity/Skin: +1 ble pitting edema, no obvious rash MSK: FROM x 4 Neuro: CN 2-12 grossly intact, no new focal deficits Psych: calm - Constitutional Vitals: Temp Pulse Resp BP Pulse Ox 97.9 F 78 18 149/92 96 02/23/19 08:00 02/23/19 12:32 02/23/19 08:00 02/23/19 12:32 02/23/19 08:00 General appearance: Present: no acute distress Results - Labs CBC & Chem 7: 02/23/19 07:19 02/23/19 07:19 Labs: Laboratory Last Values WBC 5.9 K/mm3 (4.5-11.0) 02/23/19 07:19 RBC 3.96 M/mm3 (3.65-5.03) 02/23/19 07:19 Hgb 10.5 gm/dl (11.8-15.2) L 02/23/19 07:19 Hct 32.7 % (35.5-45.6) L 02/23/19 07:19 MCV 82 fl (84-94) L 02/23/19 07:19 MCH 27 pg (28-32) L 02/23/19 07:19 MCHC 32 % (32-34) 02/23/19 07:19 RDW 18.4 % (13.2-15.2) H 02/23/19 07:19 Plt Count 227 K/mm3 (140-440) 02/23/19 07:19 Lymph % (Auto) 22.5 % (13.4-35.0) 02/23/19 07:19 [place] % (Auto) 14.8 % (0.0-7.3) H 02/23/19 07:19 Eos % (Auto) 2.2 % (0.0-4.3) 02/23/19 07:19 Baso % (Auto) 1.5 % (0.0-1.8) 02/23/19 07:19 Lymph # 1.3 K/mm3 (1.2-5.4) 02/23/19 07:19 [place] # 0.9 K/mm3 (0.0-0.8) H 02/23/19 07:19 Eos # 0.1 K/mm3 (0.0-0.4) 02/23/19 07:19 Baso # 0.1 K/mm3 (0.0-0.1) 02/23/19 07:19 Seg Neutrophils % 59.0 % (40.0-70.0) 02/23/19 07:19 Seg Neutrophils # 3.5 K/mm3 (1.8-7.7) 02/23/19 07:19 Percent Retic 0.96 % (0.78-2.58) 02/22/19 12:54 PT 23.3 Sec. (12.2-14.9) H 02/23/19 08:04 INR 2.12 (0.87-1.13) H 02/23/19 08:04 APTT 49.6 Sec. (24.2-36.6) H 02/21/19 21:28 Heparin Anti-Xa Level < 0.10 U.I./ml (0.3-0.7) L 02/23/19 07:19 Sodium 140 mmol/L (137-145) 02/23/19 07:19 Potassium 3.6 mmol/L (3.6-5.0) 02/23/19 07:19 Chloride 97.7 mmol/L (98-107) L 02/23/19 07:19 Carbon Dioxide 30 mmol/L (22-30) 02/23/19 07:19 16 mmol/L 02/23/19 07:19 BUN 17 mg/dL (9-20) 02/23/19 07:19 1.4 mg/dL (0.8-1.5) 02/23/19 07:19 Estimated GFR > 60 ml/min 02/23/19 07:19 12 % 02/23/19 07:19 Glucose 91 mg/dL (75-100) 02/23/19 07:19 POC Glucose 80 (70-105) 02/23/19 12:17 6.5 mg/dL (3.5-7.6) 02/22/19 12:54 Calcium 8.4 mg/dL (8.4-10.2) 02/23/19 07:19 Iron 25 ug/dL (49-181) L 02/22/19 12:54 TIBC 315 mcg/dL (250-450) 02/22/19 12:54 % Saturation 7.94 % 02/22/19 12:54 258 mg/dl (180-329) 02/22/19 12:54 < 0.010 ng/mL (0.00-0.029) 02/22/19 04:32 NT-Pro-B Natriuret Pep 2572 pg/mL (0-900) H 02/21/19 21:28 Triglycerides 46 mg/dL (2-149) 02/22/19 04:32 Cholesterol 98 mg/dL (50-199) 02/22/19 04:32 56 mg/dL (50-130) 02/22/19 04:32 40 mg/dL (40-59) 02/22/19 04:32 2.45 % 02/22/19 04:32 Vitamin B12 481.0 pg/mL (211-911) 02/22/19 12:54 Colorless (Yellow) 02/22/19 Unknown Clear (Clear) 02/22/19 Unknown 8.0 (5.0-7.0) H 02/22/19 Unknown Ur Specific [place] 1.006 (1.003-1.030) 02/22/19 Unknown <15 mg/dl mg/dL (Negative) 02/22/19 Unknown Neg mg/dL (Negative) 02/22/19 Unknown Neg mg/dL (Negative) 02/22/19 Unknown Neg (Negative) 02/22/19 Unknown Neg (Negative) 02/22/19 Unknown Neg (Negative) 02/22/19 Unknown < 2.0 mg/dL (<2.0) 02/22/19 Unknown Ur Leukocyte Esterase Neg (Negative) 02/22/19 Unknown < 1.0 /HPF (0.0-6.0) 02/22/19 Unknown 2.0 /HPF (0.0-6.0) 02/22/19 Unknown 14.5 mg/dL (0.1-20.0) 02/22/19 Unknown < 4 mg/dL (5-11.8) L 02/22/19 Unknown Presumptive negative 02/22/19 00:48 Presumptive negative 02/22/19 00:48 Ur Barbiturates Screen Presumptive negative 02/22/19 00:48 Ur Phencyclidine Scrn Presumptive negative 02/22/19 00:48 Ur Amphetamines Screen Presumptive negative 02/22/19 00:48 U Benzodiazepines Scrn Presumptive negative 02/22/19 00:48 Presumptive negative 02/22/19 00:48 U Marijuana (THC) Screen Presumptive negative 02/22/19 00:48 Disclamer 02/22/19 00:48 Active Medications - Current Medications Current Medications: Generic Name Dose Route Start Last Admin Trade Name Freq PRN Reason Stop Dose Admin Acetaminophen 650 mg 02/22/19 00:04 Tylenol PO Q4H PRN Pain MILD(1-3)/Fever >100.5/ROWAN Acetaminophen/Codeine Phosphate 1 tab 02/21/19 23:10 02/23/19 09:27 Tylenol #3 PO 1 tab Q6H PRN Administration pain Albuterol 2.5 mg 02/22/19 00:04 Proventil IH Q3HRT PRN Shortness Of Breath Atorvastatin Calcium 20 mg 02/22/19 22:00 02/22/19 22:22 Lipitor PO 20 mg QHS JEB Administration Diclofenac Sodium 1 applic 02/21/19 23:10 Diclofenac 1% TP QID PRN pain Docusate Sodium 100 mg 02/22/19 10:00 02/23/19 12:32 Colace PO 100 mg BID JEB Administration Furosemide 40 mg 02/22/19 06:00 02/23/19 06:30 Lasix IV 40 mg 0600,1800 JEB Administration Heparin Sodium/Sodium Chloride 25,000 unit in 500 mls @ 20 mls/hr 02/22/19 01:00 02/23/19 09:21 Heparin/ 0.45% Nacl-25,000 Unit/500 Ml IV 1,600 units/hr TITRATE JEB 32 mls/hr Titration Protocol 1,000 UNITS/HR Metoprolol Succinate 25 mg 02/22/19 10:00 02/23/19 12:32 Toprol Xl PO 25 mg QDAY JEB Administration Nitroglycerin 0.4 mg 02/22/19 00:04 Nitrostat SL .Q5MIN PRN Chest Pain Ondansetron HCl 4 mg 02/22/19 00:04 Zofran IV Q8H PRN Nausea And Vomiting Sodium Chloride 10 ml 02/22/19 10:00 02/23/19 12:34 Sodium Chloride Flush Syringe 10 Ml IV 10 ml BID JEB Administration Sodium Chloride 10 ml 02/22/19 00:04 Sodium Chloride Flush Syringe 10 Ml IV PRN PRN LINE FLUSH Warfarin Sodium 6 mg 02/22/19 17:00 02/22/19 18:51 Coumadin PO 6 mg 1700 JEB Administration Protocol Nutrition/Malnutrition Assess - Dietary Evaluation Nutrition/Malnutrition Findings: Nutrition Notes Start: 02/22/19 08:59 Freq: Status: Active Protocol: Document 02/22/19 08:59 LP (Rec: 02/22/19 09:01 LP [id number]) Nutrition Notes Initial or Follow up Brief Note Current Diagnosis CKD(stage I-IV),Coronary Artery Disease,Hypertension, Heart Failure,Stroke Current Diet Cardiac Labs/Tests Reviewed Pertinent Medications Lasix Coumadin Height 6 ft 3 in Weight 83 kg [place] Body Weight (kg) 89.09 BMI 22.8 Subjective/Other Information Screen for Coumadin. Pt has been on Coumadin and aware of diet. Pt states eating well [employer] and now. Pt denies nutrition needs at this time. Nutrition Intervention Revisit per MD consult or patient Sign Off request:
[2019-02-23] MEDS: HEPARIN/ 0.45% NACL-25,000 UNIT/500 ML 25,000 UNIT/500 ML BAG IV SCH (16:53)
[2019-02-23] MEDS: BABY ASPIRIN PO SCH (20:22)
[2019-02-23] MEDS: COUMADIN PO SCH (20:22)
[2019-02-24] MEDS: TYLENOL PO PRN (00:52)
--- NOTE | 2019-02-24 01:08 | Ultrasound Report ---
PROCEDURE: US RENAL BILAT TECHNIQUE: Real-time sonography in multiple planes of the kidneys, ureters and urinary bladder was p erformed with image documentation. HISTORY: Renal failure RF COMPARISONS: None . FINDINGS: RIGHT kidney: Normal echotexture. No focal renal mass, calculus, or hydronephrosis. Length: 11.7 cm . LEFT kidney: Normal echotexture. No focal renal mass, calculus, or hydronephrosis. Length: 12 cm. Bladder: Normal. No distention or wall thickening. Moderate ascites IMPRESSION: Both kidneys have a normal appearance. There is moderate ascites . This document is electronically signed by Nany Amador DO., February 24 2019 01:06:55 AM ET
[2019-02-24] MEDS: HEPARIN/ 0.45% NACL-25,000 UNIT/500 ML 25,000 UNIT/500 ML BAG IV SCH ×2 (05:58→23:41)
[2019-02-24] MEDS: LASIX IV SCH ×2 (05:59→18:05)
[2019-02-24] MEDS: TYLENOL #3 PO PRN (05:59)
[2019-02-24 06:39] LABS: Hematocrit 32.9 % (35.5-45.6); Hemoglobin 10.5 gm/dl (11.8-15.2)
[2019-02-24] MEDS: COLACE PO SCH ×2 (09:06→21:42)
[2019-02-24] MEDS: TOPROL XL PO SCH (09:06)
[2019-02-24] MEDS: BABY ASPIRIN PO SCH (09:06)
[2019-02-24 09:47] LABS: INR 2.17 (0.87-1.13)
[2019-02-24 10:32] LABS: BUN/Creatinine Ratio 14; Blood Urea Nitrogen 17 mg/dL (9-20); Calcium 8.7 mg/dL (8.4-10.2); Hemolysis Index 3
--- NOTE | 2019-02-24 11:07 | Progress Note ---
Subjective Principal diagnosis: volume overload Interval history: Patient was seen today for follow-up on multiple renal related issues Events of this hospitalization noted Feeling much better creatinine has normalized Patient willing to make some diet and lifestyle changes Patient denies having any chest pain pressure or shortness of breath Vitals labs intake output medications were reviewed Social history: Reviewed Allergies: Reviewed Family history: Reviewed Physical examination HEENT: Oral mucosa moist no pallor or icterus Neck: Supple no JVD Chest: Clear to auscultation anteriorly CVS: Regular rate and rhythm S1 and S2 heard Abdomen: Soft nontender no suprapubic masses no organomegaly appreciable Extremity: Dry skin less than 1+ peripheral edema Musculoskeletal: No joint effusion noted in knees and ankle Neurological: Alert awake Dermatology: No petechial rashes Psychiatry: No evidence of any agitation and aggression noted Assessment and plan; Acute kidney injury: Patient's creatinine has completely normalized at 1.2 now No evidence of any acidosis, urinalysis shows no evidence of any hematuria patient has less than 15 mg protein in the urine ratio is 4/14 no evidence of any hematuria Renal ultrasonogram NORMAL Blood pressure is currently well controlled Anemia to be followed by primary team may need GI workup We'll continue to follow and make recommendation from renal standpoin Congestive heart failure discussed about options discussed about making diet and lifestyle changes altogether Advised to make an appointment office upon discharge, see primary care physician as well as nephrology Patient was adequately counseled and educated regarding multiple renal related issues Pertinent lab findings were discussed with patient and patient does exhibit good understanding of renal issues. We'll continue to follow and make recommendation from renal standpoint Objective - Vital Signs Vital signs: Vital Signs - 12hr 02/23/19 02/24/19 02/24/19 23:23 01:00 03:58 Temperature 98.0 F 98.0 F Pulse Rate 67 82 62 Respiratory 18 18 Rate Blood Pressure 123/79 133/82 O2 Sat by Pulse 98 92 Oximetry - Lab 02/24/19 05:52 02/24/19 09:49 Most recent lab results Calcium 8.7 mg/dL (8.4-10.2) 02/24/19 09:49 14.5 mg/dL (0.1-20.0) 02/22/19 Unknown < 4 mg/dL (5-11.8) L 02/22/19 Unknown Medications & Allergies - Medications Allergies/Adverse Reactions: Allergies Penicillins Allergy (Verified 01/30/19 21:44) Itching Home Medications: Home Medications Medication Instructions Recorded Confirmed Last Taken Type Acetaminophen/Codeine [Tylenol 1 tab PO Q6H PRN #12 tab 01/31/19 02/23/19 Unknown Rx /Codeine # 3 tab] Diclofenac 1% [Diclofenac 1% 1 applicatio TP QID PRN #1 tube 01/31/19 02/23/19 Unknown Rx topical gel] Active Medications: Generic Name Dose Route Start Last Admin Trade Name Freq PRN Reason Stop Dose Admin Acetaminophen 650 mg 02/22/19 00:04 02/24/19 00:52 Tylenol PO 650 mg Q4H PRN Administration Pain MILD(1-3)/Fever >100.5/ROWAN Acetaminophen/Hydrocodone Bitart 1 each 02/24/19 09:37 [place] 10/325 PO Q4H PRN Pain , Severe (7-10) Albuterol 2.5 mg 02/22/19 00:04 Proventil IH Q3HRT PRN Shortness Of Breath Aspirin 81 mg 02/23/19 16:00 02/24/19 09:06 Baby Aspirin PO 81 mg QDAY JEB Administration Atorvastatin Calcium 20 mg 02/22/19 22:00 02/23/19 22:39 Lipitor PO 20 mg QHS JEB Administration Diclofenac Sodium 1 applic 02/21/19 23:10 Diclofenac 1% TP QID PRN pain Docusate Sodium 100 mg 02/22/19 10:00 02/24/19 09:06 Colace PO 100 mg BID JEB Administration Furosemide 40 mg 02/22/19 06:00 02/24/19 05:59 Lasix IV 40 mg 0600,1800 JEB Administration Heparin Sodium/Sodium Chloride 25,000 unit in 500 mls @ 20 mls/hr 02/22/19 01:00 02/24/19 05:58 Heparin/ 0.45% Nacl-25,000 Unit/500 Ml IV 1,600 units/hr TITRATE JEB 32 mls/hr Administration Protocol 1,000 UNITS/HR Metoprolol Succinate 25 mg 02/22/19 10:00 02/24/19 09:06 Toprol Xl PO 25 mg QDAY JEB Administration Nitroglycerin 0.4 mg 02/22/19 00:04 Nitrostat SL .Q5MIN PRN Chest Pain Ondansetron HCl 4 mg 02/22/19 00:04 Zofran IV Q8H PRN Nausea And Vomiting Sodium Chloride 10 ml 02/22/19 10:00 02/23/19 22:43 Sodium Chloride Flush Syringe 10 Ml IV 10 ml BID JEB Administration Sodium Chloride 10 ml 02/22/19 00:04 Sodium Chloride Flush Syringe 10 Ml IV PRN PRN LINE FLUSH Warfarin Sodium 6 mg 02/22/19 17:00 02/23/19 20:22 Coumadin PO 6 mg 1700 JEB Administration Protocol
[2019-02-24] MEDS: NORCO 10/325 PO PRN ×2 (12:02→19:05)
--- NOTE | 2019-02-24 13:12 | Progress Note ---
Assessment and Plan Assessment and plan: Patient is a 54-year-old -[place] man from [place] with a history of alcohol abuse currently in recovery program, tobacco dependency, CHF, MECHANICAL mitral valve replacement, CAD, CVA, [place] and pacemaker in situ who presented to [facility] ED with bilateral lower extremity edema L>R and shortness of breath. CXR showed mild cardiomegaly and stable mild bilateral pleural effusion when compared to previous study done on 01/31. EKG unrevealing for acute ischemic abnormalities. Will admit for CHF to Telemetry. Acute exacerbation of CHF suspected systolic, ECHO still pending: continue to diuresis MVR -mechanical valve on Coumadin, subtherapeutic: on iv heparin drip, monitor INR daily with a goal of 2.5-3.5, add ASA CAD by history: add ASA suspected PAD: Vascular consulted, input note, added ASA Anemia of Chronic Disease: monitor cbc closley CKD 3: monitor bmp closely Tobacco dependency: Counseled for smoking cessation hx HLD hx ME hx CVA hx Pacemaker in situ History of trauma/EtOH abuse-in recovery program History of tobacco abuse DVT PPX on heparin gtt and by Coumadin History Interval history: Patient was seen and examined. Follow-up on current diagnosis of CHF. No overni ght events reported to me. Patient denies any chest pain, shortness breath, nausea/vomiting or severe headaches. Imaging, nursing note, chart, labs and old chart reviewed. Discussed with patient. Hospitalist Physical - Physical exam Narrative exam: Gen: WDWN, NAD, Awake, Alert, Orientated HEENT: NCAT, EOMI, PERRL, OP Clear Neck: supple, no adenopathy, no thyromegaly, no JVD CVS/Heart: RRR, normal S1S2, pulses present bilaterally Chest/Lungs: diminished bs bilateral with crackles, Symmetrical chest expansion, good air entry bilaterally GI/Abdomen: soft, NTND, good bowel sounds, no guarding or rebound /Bladder: no suprapubic tenderness, no CVA or paraspinal tenderness Extermity/Skin: +1 ble pitting edema, no obvious rash MSK: FROM x 4 Neuro: CN 2-12 grossly intact, no new focal deficits Psych: calm - Constitutional Vitals: Temp Pulse Resp BP Pulse Ox 98.0 F 60 18 133/82 92 02/24/19 03:58 06/23/19 09:00 02/24/19 03:58 02/24/19 03:58 02/24/19 03:58 General appearance: Present: no acute distress Results - Labs CBC & Chem 7: 02/24/19 05:52 02/24/19 09:49 Labs: Laboratory Last Values WBC 5.9 K/mm3 (4.5-11.0) 02/23/19 07:19 RBC 3.96 M/mm3 (3.65-5.03) 02/23/19 07:19 Hgb 10.5 gm/dl (11.8-15.2) L 02/24/19 05:52 Hct 32.9 % (35.5-45.6) L 02/24/19 05:52 MCV 82 fl (84-94) L 02/23/19 07:19 MCH 27 pg (28-32) L 02/23/19 07:19 MCHC 32 % (32-34) 02/23/19 07:19 RDW 18.4 % (13.2-15.2) H 02/23/19 07:19 Plt Count 253 K/mm3 (140-440) 02/24/19 05:52 Lymph % (Auto) 22.5 % (13.4-35.0) 02/23/19 07:19 [place] % (Auto) 14.8 % (0.0-7.3) H 02/23/19 07:19 Eos % (Auto) 2.2 % (0.0-4.3) 02/23/19 07:19 Baso % (Auto) 1.5 % (0.0-1.8) 02/23/19 07:19 Lymph # 1.3 K/mm3 (1.2-5.4) 02/23/19 07:19 [place] # 0.9 K/mm3 (0.0-0.8) H 02/23/19 07:19 Eos # 0.1 K/mm3 (0.0-0.4) 02/23/19 07:19 Baso # 0.1 K/mm3 (0.0-0.1) 02/23/19 07:19 Seg Neutrophils % 59.0 % (40.0-70.0) 02/23/19 07:19 Seg Neutrophils # 3.5 K/mm3 (1.8-7.7) 02/23/19 07:19 Percent Retic 0.96 % (0.78-2.58) 02/22/19 12:54 PT 23.7 Sec. (12.2-14.9) H 02/24/19 08:47 INR 2.17 (0.87-1.13) H 02/24/19 08:47 APTT 49.6 Sec. (24.2-36.6) H 02/21/19 21:28 Heparin Anti-Xa Level 0.63 U.I./ml (0.3-0.7) 02/23/19 21:51 Sodium 137 mmol/L (137-145) 02/24/19 09:49 Potassium 3.6 mmol/L (3.6-5.0) 02/24/19 09:49 Chloride 95.0 mmol/L (98-107) L 02/24/19 09:49 Carbon Dioxide 30 mmol/L (22-30) 02/24/19 09:49 16 mmol/L 02/24/19 09:49 BUN 17 mg/dL (9-20) 02/24/19 09:49 1.2 mg/dL (0.8-1.5) 02/24/19 09:49 Estimated GFR > 60 ml/min 02/24/19 09:49 14 % 02/24/19 09:49 Glucose 109 mg/dL (75-100) H 02/24/19 09:49 POC Glucose 96 (70-105) 02/24/19 11:46 6.5 mg/dL (3.5-7.6) 02/22/19 12:54 Calcium 8.7 mg/dL (8.4-10.2) 02/24/19 09:49 Iron 25 ug/dL (49-181) L 02/22/19 12:54 TIBC 315 mcg/dL (250-450) 02/22/19 12:54 % Saturation 7.94 % 02/22/19 12:54 258 mg/dl (180-329) 02/22/19 12:54 < 0.010 ng/mL (0.00-0.029) 02/22/19 04:32 NT-Pro-B Natriuret Pep 2572 pg/mL (0-900) H 02/21/19 21:28 Triglycerides 46 mg/dL (2-149) 02/22/19 04:32 Cholesterol 98 mg/dL (50-199) 02/22/19 04:32 56 mg/dL (50-130) 02/22/19 04:32 40 mg/dL (40-59) 02/22/19 04:32 2.45 % 02/22/19 04:32 Vitamin B12 481.0 pg/mL (211-911) 02/22/19 12:54 Colorless (Yellow) 02/22/19 Unknown Clear (Clear) 02/22/19 Unknown 8.0 (5.0-7.0) H 02/22/19 Unknown Ur Specific [place] 1.006 (1.003-1.030) 02/22/19 Unknown <15 mg/dl mg/dL (Negative) 02/22/19 Unknown Neg mg/dL (Negative) 02/22/19 Unknown Neg mg/dL (Negative) 02/22/19 Unknown Neg (Negative) 02/22/19 Unknown Neg (Negative) 02/22/19 Unknown Neg (Negative) 02/22/19 Unknown < 2.0 mg/dL (<2.0) 02/22/19 Unknown Ur Leukocyte Esterase Neg (Negative) 02/22/19 Unknown < 1.0 /HPF (0.0-6.0) 02/22/19 Unknown 2.0 /HPF (0.0-6.0) 02/22/19 Unknown 14.5 mg/dL (0.1-20.0) 02/22/19 Unknown < 4 mg/dL (5-11.8) L 02/22/19 Unknown Presumptive negative 02/22/19 00:48 Presumptive negative 02/22/19 00:48 Ur Barbiturates Screen Presumptive negative 02/22/19 00:48 Ur Phencyclidine Scrn Presumptive negative 02/22/19 00:48 Ur Amphetamines Screen Presumptive negative 02/22/19 00:48 U Benzodiazepines Scrn Presumptive negative 02/22/19 00:48 Presumptive negative 02/22/19 00:48 U Marijuana (THC) Screen Presumptive negative 02/22/19 00:48 Disclamer 02/22/19 00:48 Active Medications - Current Medications Current Medications: Generic Name Dose Route Start Last Admin Trade Name Freq PRN Reason Stop Dose Admin Acetaminophen 650 mg 02/22/19 00:04 02/24/19 00:52 Tylenol PO 650 mg Q4H PRN Administration Pain MILD(1-3)/Fever >100.5/ROWAN Acetaminophen/Hydrocodone Bitart 1 each 02/24/19 09:37 02/24/19 12:02 [place] 10/325 PO 1 each Q4H PRN Administration Pain , Severe (7-10) Albuterol 2.5 mg 02/22/19 00:04 Proventil IH Q3HRT PRN Shortness Of Breath Aspirin 81 mg 02/23/19 16:00 02/24/19 09:06 Baby Aspirin PO 81 mg QDAY JEB Administration Atorvastatin Calcium 20 mg 02/22/19 22:00 02/23/19 22:39 Lipitor PO 20 mg QHS JEB Administration Diclofenac Sodium 1 applic 02/21/19 23:10 Diclofenac 1% TP QID PRN pain Docusate Sodium 100 mg 02/22/19 10:00 02/24/19 09:06 Colace PO 100 mg BID JEB Administration Furosemide 40 mg 02/22/19 06:00 02/24/19 05:59 Lasix IV 40 mg 0600,1800 JEB Administration Heparin Sodium/Sodium Chloride 25,000 unit in 500 mls @ 20 mls/hr 02/22/19 01:00 02/24/19 05:58 Heparin/ 0.45% Nacl-25,000 Unit/500 Ml IV 1,600 units/hr TITRATE JEB 32 mls/hr Administration Protocol 1,000 UNITS/HR Metoprolol Succinate 25 mg 02/22/19 10:00 02/24/19 09:06 Toprol Xl PO 25 mg QDAY JEB Administration Nitroglycerin 0.4 mg 02/22/19 00:04 Nitrostat SL .Q5MIN PRN Chest Pain Ondansetron HCl 4 mg 02/22/19 00:04 Zofran IV Q8H PRN Nausea And Vomiting Sodium Chloride 10 ml 02/22/19 10:00 02/23/19 22:43 Sodium Chloride Flush Syringe 10 Ml IV 10 ml BID JEB Administration Sodium Chloride 10 ml 02/22/19 00:04 Sodium Chloride Flush Syringe 10 Ml IV PRN PRN LINE FLUSH Warfarin Sodium 6 mg 02/22/19 17:00 02/23/19 20:22 Coumadin PO 6 mg 1700 JEB Administration Protocol Nutrition/Malnutrition Assess - Dietary Evaluation Nutrition/Malnutrition Findings: Nutrition Notes Start: 02/22/19 08:59 Freq: Status: Active Protocol: Document 02/22/19 08:59 LP (Rec: 02/22/19 09:01 LP [id number]) Nutrition Notes Initial or Follow up Brief Note Current Diagnosis CKD(stage I-IV),Coronary Artery Disease,Hypertension, Heart Failure,Stroke Current Diet Cardiac Labs/Tests Reviewed Pertinent Medications Lasix Coumadin Height 6 ft 3 in Weight 83 kg [place] Body Weight (kg) 89.09 BMI 22.8 Subjective/Other Information Screen for Coumadin. Pt has been on Coumadin and aware of diet. Pt states eating well [employer] and now. Pt denies nutrition needs at this time. Nutrition Intervention Revisit per MD consult or patient Sign Off request:
[2019-02-24] MEDS ORDERED: COUMADIN PO SCH (17:00)
--- NOTE | 2019-02-24 17:23 | Progress Note ---
Assessment and Plan Continue current cardiac management. No ACEi/ARB at this time d/t renal insufficiency. INR currently 2.18, so continue to bridge from Heparin to Coumadin for a target INR of 2.5 to 3.5. Patient has been seen in conjunction with Dr. Ayala, who agrees with assessment and plan. - Patient Problems (1) Acute HFrEF (heart failure with reduced ejection fraction) Current Visit: Yes Status: Acute (2) Dyspnea Current Visit: Yes Status: Acute Qualifiers: Dyspnea type: shortness of breath Qualified Code(s): R06.02 - Shortness of breath; R06.00 - Dyspnea, unspecified; R06.01 - Orthopnea (3) Renal insufficiency Current Visit: Yes Status: Acute (4) Swelling of both lower extremities Current Visit: Yes Status: Acute (5) Anticoagulated on Coumadin Current Visit: Yes Status: Chronic (6) Automatic implantable cardioverter-defibrillator in situ Current Visit: Yes Status: Chronic (7) H/O mitral valve replacement with mechanical valve Current Visit: Yes Status: Chronic (8) HTN (hypertension) Current Visit: Yes Status: Chronic (9) Cardiomyopathy Current Visit: Yes Status: Suspected Subjective Date of service: 02/24/19 Principal diagnosis: volume overload Interval history: Patient lying in bed in NAD. No complaints. Echocardiogram completed on 02/22/19 found EF of 15 to 20 percent, a severely dilated RV, severely dilated RA cavity size, mild AR and moderate MR. He is currently bridging from Heparin to Coumadin - INR this AM was 2.18. SR in 60s with occasional PVCs and paced beats on telemetry. Objective Last Vital Signs Temp 98.0 F 02/24/19 03:58 Pulse 60 02/24/19 09:00 Resp 18 02/24/19 03:58 BP 133/82 02/24/19 03:58 Pulse Ox 92 02/24/19 03:58 - Physical Examination General: No Apparent Distress HEENT: Positive: PERRL, Normocephaly, Mucus Membranes Moist Neck: Positive: neck supple, trachea midline Cardiac: Positive: Reg Rate and Rhythm Lungs: Positive: clear to auscultation Neuro: Positive: Grossly Intact Abdomen: Positive: Unremarkable. Negative: Tender Skin: Positive: Clear. Negative: Rash Musculoskeletal: Normal Range of Motion Extremities: Present: normal - Labs and Meds Coagulation 02/24/19 Range/Units 08:47 PT 23.7 H (12.2-14.9) Sec. INR 2.17 H (0.87-1.13) CBC 02/24/19 Range/Units 05:52 Hgb 10.5 L (11.8-15.2) gm/dl Hct 32.9 L (35.5-45.6) % Plt Count 253 (140-440) K/mm3 Comprehensive Metabolic Panel 02/24/19 Range/Units 09:49 Sodium 137 (137-145) mmol/L Potassium 3.6 (3.6-5.0) mmol/L Chloride 95.0 L (98-107) mmol/L Carbon Dioxide 30 (22-30) mmol/L BUN 17 (9-20) mg/dL Creatinine 1.2 (0.8-1.5) mg/dL Glucose 109 H (75-100) mg/dL Calcium 8.7 (8.4-10.2) mg/dL - Imaging and Cardiology EKG: report reviewed, image reviewed Echo: pending, report reviewed (EF 15-20%, severely dilated RA and RV, mild AR, moderate TR.) - EKG Sinus rhythms and dysrhythmias: sinus rhythm
[2019-02-24] MEDS: SODIUM CHLORIDE FLUSH SYRINGE 10 ML IV SCH ×2 (17:52→21:43)
[2019-02-24] MEDS ORDERED: BENADRYL PO PRN (23:28)
[2019-02-25] MEDS: LASIX IV SCH (06:12)
[2019-02-25 08:12] VITALS: BP 141/87
[2019-02-25 08:26] LABS: INR 2.75 (0.87-1.13)
[2019-02-25] MEDS: TOPROL XL PO SCH (09:36)
[2019-02-25] MEDS: COLACE PO SCH (09:36)
[2019-02-25] MEDS: BABY ASPIRIN PO SCH (09:36)
[2019-02-25] MEDS: SODIUM CHLORIDE FLUSH SYRINGE 10 ML IV SCH (09:37)
--- NOTE | 2019-02-25 11:35 | Progress Note ---
Assessment and Plan Currently stable cardiac status. Pt may discharge home from cardiology standpoint. At discharge, recommend conversion of IV lasix to PO lasix 40mg daily. Renal function improved, will initiate low dose losartan and monitor renal indices as OP. Can also consider addition of aldactone as OP if renal function permits. Cont coumadin with tx INR 2.5-3.5. Recommend pt follow up in our office with Dr. Graciela Gaston within 3-5 days of hospital discharge ([phone]). The patient has been seen in conjunction with Dr. Apple who agrees with the assessment and plan of care. - Patient Problems (1) Acute HFrEF (heart failure with reduced ejection fraction) Current Visit: Yes Status: Acute (2) Cardiomyopathy Current Visit: Yes Status: Suspected Plan to address problem: former ETOH abuse (3) Automatic implantable cardioverter-defibrillator in situ Current Visit: Yes Status: Chronic (4) H/O mitral valve replacement with mechanical valve Current Visit: Yes Status: Chronic (5) Anticoagulated on Coumadin Current Visit: Yes Status: Chronic (6) HTN (hypertension) Current Visit: Yes Status: Chronic (7) Renal insufficiency Current Visit: Yes Status: Acute Subjective Date of service: 02/25/19 Principal diagnosis: hf Interval history: pt resting in bed, states he is feeling back to baseline.in SR on tele. Objective Last Vital Signs Temp 98.0 F 02/25/19 07:42 Pulse 68 02/25/19 09:36 Resp 18 02/25/19 07:42 BP 141/87 02/25/19 09:36 Pulse Ox 96 02/25/19 07:42 - Physical Examination General: No Apparent Distress HEENT: Positive: PERRL, Normocephaly, Mucus Membranes Moist Neck: Positive: neck supple, trachea midline Cardiac: Positive: Reg Rate and Rhythm, S1/S2, Other (valve click) Lungs: Positive: Decreased Breath Sounds Neuro: Positive: Grossly Intact Abdomen: Positive: Unremarkable. Negative: Tender Skin: Positive: Clear. Negative: Rash Musculoskeletal: Normal Range of Motion Extremities: Present: normal - Labs and Meds Coagulation 02/25/19 Range/Units 07:25 PT 28.6 H (12.2-14.9) Sec. INR 2.75 H (0.87-1.13) - Imaging and Cardiology EKG: report reviewed, image reviewed Echo: pending, report reviewed (EF 15-20%, severely dilated RA and RV, mild AR, moderate TR.) - EKG Sinus rhythms and dysrhythmias: sinus rhythm
[2019-02-25] MEDS ORDERED: COZAAR PO SCH (12:00)
--- NOTE | 2019-02-25 12:28 | Progress Note ---
Assessment and Plan Assessment and plan: Patient is a 54-year-old -[place] man from [place] with a history of alcohol abuse currently in recovery program, tobacco dependency, CHF, MECHANICAL mitral valve replacement, CAD, CVA, ID and pacemaker in situ who presented to [facility] ED with bilateral lower extremity edema L>R and shortness of breath. CXR showed mild cardiomegaly and stable mild bilateral pleural effusion when compared to previous study done on 01/31. EKG unrevealing for acute ischemic abnormalities. Will admit for CHF to Telemetry. Acute exacerbation of CHF suspected systolic, ECHO still pending: continue to diuresis MVR -mechanical valve on Coumadin, subtherapeutic: on iv heparin drip, monitor INR daily with a goal of 2.5-3.5, add ASA CAD by history: add ASA suspected PAD: Vascular consulted, input note, added ASA Anemia of Chronic Disease: monitor cbc closley CKD 3: monitor bmp closely Tobacco dependency: Counseled for smoking cessation hx HLD hx ID hx CVA hx Pacemaker in situ History of trauma/EtOH abuse-in recovery program History of tobacco abuse DVT PPX on heparin gtt and by Coumadin History Interval history: Patient was seen and examined. Follow-up on current diagnosis of CHF. No over night events reported to me. Patient denies any chest pain, shortness breath, nausea/vomiting or severe headaches. Imaging, nursing note, chart, labs and old chart reviewed. Discussed with patient. Hospitalist Physical - Physical exam Narrative exam: Gen: WDWN, NAD, Awake, Alert, Orientated HEENT: NCAT, EOMI, PERRL, OP Clear Neck: supple, no adenopathy, no thyromegaly, no JVD CVS/Heart: RRR, normal S1S2, pulses present bilaterally Chest/Lungs: diminished bs bilateral with crackles, Symmetrical chest expansion, good air entry bilaterally GI/Abdomen: soft, NTND, good bowel sounds, no guarding or rebound /Bladder: no suprapubic tenderness, no CVA or paraspinal tenderness Extermity/Skin: +1 ble pitting edema, no obvious rash MSK: FROM x 4 Neuro: CN 2-12 grossly intact, no new focal deficits Psych: calm - Constitutional Vitals: Temp Pulse Resp BP Pulse Ox 98.0 F 68 18 141/87 96 02/25/19 07:42 02/25/19 09:36 02/25/19 07:42 02/25/19 09:36 02/25/19 07:42 General appearance: Present: no acute distress Results - Labs CBC & Chem 7: 02/24/19 05:52 02/24/19 09:49 Labs: Laboratory Last Values WBC 5.9 K/mm3 (4.5-11.0) 02/23/19 07:19 RBC 3.96 M/mm3 (3.65-5.03) 02/23/19 07:19 Hgb 10.5 gm/dl (11.8-15.2) L 02/24/19 05:52 Hct 32.9 % (35.5-45.6) L 02/24/19 05:52 MCV 82 fl (84-94) L 02/23/19 07:19 MCH 27 pg (28-32) L 02/23/19 07:19 MCHC 32 % (32-34) 02/23/19 07:19 RDW 18.4 % (13.2-15.2) H 02/23/19 07:19 Plt Count 253 K/mm3 (140-440) 02/24/19 05:52 Lymph % (Auto) 22.5 % (13.4-35.0) 02/23/19 07:19 Gem % (Auto) 14.8 % (0.0-7.3) H 02/23/19 07:19 Eos % (Auto) 2.2 % (0.0-4.3) 02/23/19 07:19 Baso % (Auto) 1.5 % (0.0-1.8) 02/23/19 07:19 Lymph # 1.3 K/mm3 (1.2-5.4) 02/23/19 07:19 Gem # 0.9 K/mm3 (0.0-0.8) H 02/23/19 07:19 Eos # 0.1 K/mm3 (0.0-0.4) 02/23/19 07:19 Baso # 0.1 K/mm3 (0.0-0.1) 02/23/19 07:19 Seg Neutrophils % 59.0 % (40.0-70.0) 02/23/19 07:19 Seg Neutrophils # 3.5 K/mm3 (1.8-7.7) 02/23/19 07:19 Percent Retic 0.96 % (0.78-2.58) 02/22/19 12:54 PT 28.6 Sec. (12.2-14.9) H 02/25/19 07:25 INR 2.75 (0.87-1.13) H 02/25/19 07:25 APTT 49.6 Sec. (24.2-36.6) H 02/21/19 21:28 Heparin Anti-Xa Level 0.66 U.I./ml (0.3-0.7) 02/24/19 23:18 Sodium 137 mmol/L (137-145) 02/24/19 09:49 Potassium 3.6 mmol/L (3.6-5.0) 02/24/19 09:49 Chloride 95.0 mmol/L (98-107) L 02/24/19 09:49 Carbon Dioxide 30 mmol/L (22-30) 02/24/19 09:49 16 mmol/L 02/24/19 09:49 BUN 17 mg/dL (9-20) 02/24/19 09:49 1.2 mg/dL (0.8-1.5) 02/24/19 09:49 Estimated GFR > 60 ml/min 02/24/19 09:49 14 % 02/24/19 09:49 Glucose 109 mg/dL (75-100) H 02/24/19 09:49 POC Glucose 88 (70-105) 02/25/19 07:50 6.5 mg/dL (3.5-7.6) 02/22/19 12:54 Calcium 8.7 mg/dL (8.4-10.2) 02/24/19 09:49 Iron 25 ug/dL (49-181) L 02/22/19 12:54 TIBC 315 mcg/dL (250-450) 02/22/19 12:54 % Saturation 7.94 % 02/22/19 12:54 258 mg/dl (180-329) 02/22/19 12:54 < 0.010 ng/mL (0.00-0.029) 02/22/19 04:32 NT-Pro-B Natriuret Pep 2572 pg/mL (0-900) H 02/21/19 21:28 Triglycerides 46 mg/dL (2-149) 02/22/19 04:32 Cholesterol 98 mg/dL (50-199) 02/22/19 04:32 56 mg/dL (50-130) 02/22/19 04:32 40 mg/dL (40-59) 02/22/19 04:32 2.45 % 02/22/19 04:32 Vitamin B12 481.0 pg/mL (211-911) 02/22/19 12:54 Colorless (Yellow) 02/22/19 Unknown Clear (Clear) 02/22/19 Unknown 8.0 (5.0-7.0) H 02/22/19 Unknown Ur Specific [place] 1.006 (1.003-1.030) 02/22/19 Unknown <15 mg/dl mg/dL (Negative) 02/22/19 Unknown Neg mg/dL (Negative) 02/22/19 Unknown Neg mg/dL (Negative) 02/22/19 Unknown Neg (Negative) 02/22/19 Unknown Neg (Negative) 02/22/19 Unknown Neg (Negative) 02/22/19 Unknown < 2.0 mg/dL (<2.0) 02/22/19 Unknown Ur Leukocyte Esterase Neg (Negative) 02/22/19 Unknown < 1.0 /HPF (0.0-6.0) 02/22/19 Unknown 2.0 /HPF (0.0-6.0) 02/22/19 Unknown 14.5 mg/dL (0.1-20.0) 02/22/19 Unknown < 4 mg/dL (5-11.8) L 02/22/19 Unknown Presumptive negative 02/22/19 00:48 Presumptive negative 02/22/19 00:48 Ur Barbiturates Screen Presumptive negative 02/22/19 00:48 Ur Phencyclidine Scrn Presumptive negative 02/22/19 00:48 Ur Amphetamines Screen Presumptive negative 02/22/19 00:48 U Benzodiazepines Scrn Presumptive negative 02/22/19 00:48 Presumptive negative 02/22/19 00:48 U Marijuana (THC) Screen Presumptive negative 02/22/19 00:48 Disclamer 02/22/19 00:48 Active Medications - Current Medications Current Medications: Generic Name Dose Route Start Last Admin Trade Name Freq PRN Reason Stop Dose Admin Acetaminophen 650 mg 02/22/19 00:04 02/24/19 00:52 Tylenol PO 650 mg Q4H PRN Administration Pain MILD(1-3)/Fever >100.5/ROWAN Acetaminophen/Hydrocodone Bitart 1 each 02/24/19 09:37 02/24/19 19:05 [place] 10/325 PO 1 each Q4H PRN Administration Pain , Severe (7-10) Albuterol 2.5 mg 02/22/19 00:04 Proventil IH Q3HRT PRN Shortness Of Breath Aspirin 81 mg 02/23/19 16:00 02/25/19 09:36 Baby Aspirin PO 81 mg QDAY [facility] Administration Atorvastatin Calcium 20 mg 02/22/19 22:00 02/24/19 21:42 Lipitor PO 20 mg QHS JEB Administration Diclofenac Sodium 1 applic 02/21/19 23:10 Diclofenac 1% TP QID PRN pain Diphenhydramine HCl 25 mg 02/24/19 23:28 02/24/19 23:41 Benadryl PO 25 mg Q6H PRN Administration Itching Docusate Sodium 100 mg 02/22/19 10:00 02/25/19 09:36 Colace PO 100 mg BID [facility] Administration Furosemide 40 mg 02/22/19 06:00 02/25/19 06:12 Lasix IV 40 mg 0600,1800 [facility] Administration Losartan Potassium 12.5 mg 02/25/19 12:00 Cozaar PO QDAY [facility] Metoprolol Succinate 25 mg 02/22/19 10:00 02/25/19 09:36 Toprol Xl PO 25 mg QDAY [facility] Administration Nitroglycerin 0.4 mg 02/22/19 00:04 Nitrostat SL .Q5MIN PRN Chest Pain Ondansetron HCl 4 mg 02/22/19 00:04 Zofran IV Q8H PRN Nausea And Vomiting Sodium Chloride 10 ml 02/22/19 10:00 02/25/19 09:37 Sodium Chloride Flush Syringe 10 Ml IV 10 ml BID JEB Administration Sodium Chloride 10 ml 02/22/19 00:04 Sodium Chloride Flush Syringe 10 Ml IV PRN PRN LINE FLUSH Warfarin Sodium 7.5 mg 02/24/19 17:00 02/24/19 18:04 Coumadin PO 7.5 mg DAILY@1700 JEB Administration Nutrition/Malnutrition Assess - Dietary Evaluation Nutrition/Malnutrition Findings: Nutrition Notes Start: 02/22/19 08:59 Freq: Status: Active Protocol: Document 02/22/19 08:59 LP (Rec: 02/22/19 09:01 LP [id number]) Nutrition Notes Initial or Follow up Brief Note Current Diagnosis CKD(stage I-IV),Coronary Artery Disease,Hypertension, Heart Failure,Stroke Current Diet Cardiac Labs/Tests Reviewed Pertinent Medications Lasix Coumadin Height 6 ft 3 in Weight 83 kg [place] Body Weight (kg) 89.09 BMI 22.8 Subjective/Other Information Screen for Coumadin. Pt has been on Coumadin and aware of diet. Pt states eating well [employer] and now. Pt denies nutrition needs at this time. Nutrition Intervention Revisit per MD consult or patient Sign Off request:
--- NOTE | 2019-02-25 12:36 | Discharge Summary ---
Providers - Providers Date of Admission: 02/22/19 00:05 Date of discharge: 02/25/19 Attending physician: ADOLFO GR 02/22/19 00:04 Consult to Physician [CONS] Routine Comment: Consulting Provider: CRISSY CHAMORRO Physician Instructions: Reason For Exam: ckd Consult to Physician [CONS] Routine Comment: Consulting Provider: MONIQUE ECKERT Physician Instructions: Reason For Exam: AE CHR, hx GA, MVR, CAD, pacemaker 02/22/19 00:46 Consult to Physician [CONS] Routine Comment: Consulting Provider: NELY METZGER Physician Instructions: Reason For Exam: ??PAD [facility] Condition: Stable Hospital course: Patient is a 54-year-old -[place] man from [place] with a history of alcohol abuse currently in recovery program, tobacco dependency, CHF, MECHANICAL mitral valve replacement, CAD, CVA, GA and pacemaker in situ who presented to [facility] ED with bilateral lower extremity edema L>R and shortness of breath. CXR showed mild cardiomegaly and stable mild bilateral pleural effusion when compared to previous study done on 01/31. EKG unrevealing for acute ischemic abnormalities. Will admit for CHF to Telemetry. Acute on chronic systolic exacerbation of CHF MVR -mechanical valve on Coumadin, subtherapeutic and treated with iv heparin drip, monitor INR daily with a goal of 2.5-3.5, add ASA CAD by history: add ASA suspected PAD: Vascular consulted, input note, added ASA Anemia of Chronic Disease: monitor cbc closley CKD 3: monitor bmp closely Tobacco dependency: Counseled for smoking cessation hx HLD hx GA hx CVA hx Pacemaker in situ History of trauma/EtOH abuse-in recovery program History of tobacco abuse DVT PPX treated with heparin gtt and by Coumadin ok to discharge per Cardiology Disposition: DC-01 TO HOME OR SELFCARE Time spent for discharge: 35 minutes Core Measure Documentation - Palliative Care Palliative Care/ Comfort Measures: Not Applicable - Core Measures Any of the following diagnoses?: none - VTE Discharge Requirements Deep Vein Thrombosis/Pulmonary Embolism Present on Admission: No Has pt received <5 days of overlap therapy or INR<2.0: No Anticoagulant overlap therapy prescribed at discharge: No Contraindication No Overlap Therapy order at DC: Not Indicated Exam - Physical Exam Narrative exam: Gen: WDWN, NAD, Awake, Alert, Orientated HEENT: NCAT, EOMI, PERRL, OP Clear Neck: supple, no adenopathy, no thyromegaly, no JVD CVS/Heart: RRR, normal S1S2, pulses present bilaterally Chest/Lungs: diminished bs bilateral with crackles, Symmetrical chest expansion, good air entry bilaterally GI/Abdomen: soft, NTND, good bowel sounds, no guarding or rebound /Bladder: no suprapubic tenderness, no CVA or paraspinal tenderness Extermity/Skin: +1 ble pitting edema, no obvious rash MSK: FROM x 4 Neuro: CN 2-12 grossly intact, no new focal deficits Psych: calm - Constitutional Vitals: Temp Pulse Resp BP Pulse Ox 98.0 F 68 18 141/87 96 02/25/19 07:42 02/25/19 09:36 02/25/19 07:42 02/25/19 09:36 02/25/19 07:42 Plan Activity: other (no strenous activity) Diet: low salt [facility]Primary Care Provider] - 3-5 Days Forms: Warfarin Discharge Instruction Prescriptions: RX: AtorvaSTATin [Lipitor] 20 mg PO QHS #30 tablet RX: Docusate Sodium [Colace CAP] 100 mg PO BID #15 capsule RX: Warfarin [Coumadin] 7.5 mg PO DAILY@1700 #30 tablet RX: Losartan [Cozaar] 12.5 mg PO QDAY #30 tablet Furosemide [Lasix TAB] 40 mg PO QDAY #30 tablet RX: Metoprolol Xl [Metoprolol SUCCINATE ER TAB] 25 mg PO QDAY #30 tablet RX: HYDROcodone/APAP 10-325 [[place] 10-325 mg TAB] 1 each PO Q4H PRN #15 tablet PRN Reason: Pain , Severe (7-10)
[2019-02-25] MEDS: TYLENOL PO PRN (13:35)
--- NOTE | 2019-02-25 18:07 | Progress Note ---
Assessment and Plan - Patient Problems (1) Acute exacerbation of CHF (congestive heart failure) Status: Acute Qualifiers: Heart failure type: unspecified Qualified Code(s): I50.9 - Heart failure, unspecified Plan to address problem: Congestive heart failure I reviewed echocardiogram with markedly reduced ejection fraction 15-20% Currently her Lasix was admitted on IV twice a day Reasonable to the discharged on Lasix 40 mg twice a day still has some JVD (2) Renal insufficiency Status: Acute Plan to address problem: Acute renal failure improved current creatinine 1.0 improved from 2.0 Continue diuretics Etiology of acute kidney injury secondary to cardiorenal syndrome Strict input and outputs Avoid nephro toxic medications (3) HTN (hypertension) Status: Chronic Qualifiers: Hypertension type: essential hypertension Qualified Code(s): I10 - Es sential (primary) hypertension Plan to address problem: Hypertension Continue medications (4) Volume overload Status: Acute Plan to address problem: Volume overload: Improving Continue Diuretics Subjective Principal diagnosis: hf Interval history: 54-year-old gentleman with congestive heart failure admitted with acute kidney injury and volume overload patient currently on diuretics Patient was seen today Has some baseline orthopnea denies any PND Denies any lower extremity edema Objective - Vital Signs Vital signs: Vital Signs - 12hr 02/25/19 02/25/19 07:42 09:36 Temperature 98.0 F Pulse Rate 68 68 Respiratory 18 Rate Blood Pressure 141/87 141/87 O2 Sat by Pulse 96 Oximetry - General Appearance General appearance: well-developed, well-nourished EENT: ATNC, PERRL, mucous membranes moist Neck: no JVD Respiratory: Present: Clear to Ascultation, Decreased Breath Sounds Cardiology: regular, S1S2 Gastrointestinal: normal, normoactive bowel sounds Integumentary: no rash, warm and dry Neurologic: alert and oriented x3, CN 3-12 intact Psychiatric: mood/affect appropriate - Lab 02/24/19 05:52 02/24/19 09:49 Most recent lab results Calcium 8.7 mg/dL (8.4-10.2) 02/24/19 09:49 14.5 mg/dL (0.1-20.0) 02/22/19 Unknown < 4 mg/dL (5-11.8) L 02/22/19 Unknown - Imaging Chest x-ray: image reviewed (I reviewed chest x-ray which few interstitial markings) Medications & Allergies - Medications Allergies/Adverse Reactions: Allergies Penicillins Allergy (Verified 01/30/19 21:44) Itching Home Medications: Home Medications Medication Instructions Recorded Confirmed Last Taken Type Acetaminophen [Acetaminophen TAB] 650 mg PO Q4H PRN #15 tablet 02/25/19 Unknown Rx Aspirin [Aspirin BABY CHEW TAB] 81 mg PO QDAY #30 tab.chew 02/25/19 Unknown Rx AtorvaSTATin [Lipitor] 20 mg PO QHS #30 tablet 02/25/19 Unknown Rx Docusate Sodium [Colace CAP] 100 mg PO BID #15 capsule 02/25/19 Unknown Rx Furosemide [Lasix TAB] 40 mg PO QDAY #30 tablet 02/25/19 Unknown Rx HYDROcodone/APAP 10-325 [[place] 1 each PO Q4H PRN #15 tablet 02/25/19 Unknown Rx 10-325 mg TAB] Losartan [Cozaar] 12.5 mg PO QDAY #30 tablet 02/25/19 Unknown Rx Metoprolol Xl [Metoprolol 25 mg PO QDAY #30 tablet 02/25/19 Unknown Rx SUCCINATE ER TAB] Warfarin [Coumadin] 7.5 mg PO DAILY@1700 #30 tablet 02/25/19 Unknown Rx
== END 2019-02-25 14:59 | disposition home or self-care (01) | DRG 291 ==
LOC: ED 21:07 → 4A 02-22 00:05 → MERGE 02-22 00:05
PROVIDERS: ADMIT Internal Medicine; ATTEND Internal Medicine
DX: I13.0 Hypertensive heart and chronic kidney disease with heart failure and stage 1 through stage 4 chronic kidney disease, or unspecified chronic kidney disease (principal); I50.23 Acute on chronic systolic (congestive) heart failure; N17.9 Acute kidney failure, unspecified; I42.9 Cardiomyopathy, unspecified; I25.10 Atherosclerotic heart disease of native coronary artery without angina pectoris; D63.8 Anemia in other chronic diseases classified elsewhere; F17.200 Nicotine dependence, unspecified, uncomplicated; E78.5 Hyperlipidemia, unspecified; N18.3 Chronic kidney disease, stage 3 (moderate); Z95.2 Presence of prosthetic heart valve; Z86.73 Personal history of transient ischemic attack (TIA), and cerebral infarction without residual deficits; I25.2 Old myocardial infarction; Z95.810 Presence of automatic (implantable) cardiac defibrillator; Z88.0 Allergy status to penicillin
CPT/HCPCS: 36415; 71046; 76770; 80048; 80061; 80307; 81001; 82570; 82607; 82747; 82962; 83550; 83880; 84156; 84484; 84550; 85014; 85018; 85025; 85045; 85049; 85520; 85610; 85730; 86334; 93005; 93010; 93306; 93925; 93970; 94640; G0378; A9270-GY; J1644; J1940; J2270

== ENCOUNTER 2019-03-04 18:20 | Emergency (ER) | payer MEDICARE ==
[2019-03-04 18:44] VITALS: BP 124/78
--- NOTE | 2019-03-04 18:44 | Emergency Department Report ---
Blank Doc - Documentation Documentation: This is a 54-year-old male that presents with left side neck pain in the carotid artery area with bulging and pulsating artery. Also has some dizziness. This initial assessment/diagnostic orders/clinical plan/treatment(s) is/are subject to change based on patient's health status, clinical progression and re- assessment by fellow clinical providers in the ED. Further treatment and workup at subsequent clinical providers discretion. Patient/guardians urged not to elope from the ED as their condition may be serious if not clinically assessed and managed. Initial orders include: 1- Patient sent to MAIN ED for further evaluation and treatment. 2- labs 3- US carotid artery
[2019-03-04 19:23] LABS: Basophils # (Auto) 0.1 K/mm3 (0.0-0.1); Eosinophils % (Auto) 0.4 % (0.0-4.3); Hematocrit 31.9 % (35.5-45.6); Hemoglobin 10.1 gm/dl (11.8-15.2); Lymphocytes # (Auto) 0.8 K/mm3 (1.2-5.4); Lymphocytes % (Auto) 14.5 % (13.4-35.0); Mean Corpuscular HGB Conc 32 % (32-34); Mean Corpuscular Volume 83 fl (84-94); Monocytes # (Auto) 0.7 K/mm3 (0.0-0.8); Monocytes % (Auto) 12.3 % (0.0-7.3); Platelet Count 184 K/mm3 (140-440); Red Blood Count 3.83 M/mm3 (3.65-5.03); Red Cell Distribution Width 18.3 % (13.2-15.2)
[2019-03-04 19:32] LABS: INR 3.6 (0.87-1.13)
[2019-03-04 19:33] LABS: Partial Thromboplastin Time 58.9 Sec. (24.2-36.6)
[2019-03-04 19:54] LABS: Alanine Aminotransferase 19 units/L (7-56); Albumin 3.3 g/dL (3.9-5); BUN/Creatinine Ratio 14; Blood Urea Nitrogen 17 mg/dL (9-20); Calcium 8.6 mg/dL (8.4-10.2); Hemolysis Index 1
--- NOTE | 2019-03-05 | Emergency Department Report ---
ED General Adult HPI - General Chief complaint: Dizziness Stated complaint: KNOT ON NECK Time Seen by Provider: 03/04/19 18:42 Source: patient Mode of arrival: Ambulatory Limitations: No Limitations - History of Present Illness Initial comments: This is a 54-year-old male that presents with left side neck pain in the carotid artery area with bulging and pulsating artery. Also has some dizziness. pt has hx of chf, admitted in 02/24/2019 for same, pt states he is homeless currently living in [facility], denies substance today, denies cp no sob no wheezing no bilat le swelling or edema. complains of left lateral neck pain 4/10 with left side numbness of arm leg trunk after sleeping on floor last night Onset/Timin -: days(s) Location: abdomen, upper extremity, lower extremity Radiation: non-radiation Severity scale (0 -10): 3 Quality: other (numbness ) Consistency: constant Improves with: none Worsens with: none Associated Symptoms: denies: chest pain, fever/chills, nausea/vomiting, shortness of breath, weakness Treatments Prior to Arrival: none - Related Data Previous Rx's Medication Instructions Recorded Last Taken Type Acetaminophen [Acetaminophen TAB] 650 mg PO Q4H PRN #15 tablet 02/25/19 Unknown Rx Aspirin [Aspirin BABY CHEW TAB] 81 mg PO QDAY #30 tab.chew 02/25/19 Unknown Rx AtorvaSTATin [Lipitor] 20 mg PO QHS #30 tablet 02/25/19 Unknown Rx Docusate Sodium [Colace CAP] 100 mg PO BID #15 capsule 02/25/19 Unknown Rx Furosemide [Lasix TAB] 40 mg PO QDAY #30 tablet 02/25/19 Unknown Rx HYDROcodone/APAP 10-325 [[place] 1 each PO Q4H PRN #15 tablet 02/25/19 Unknown Rx 10-325 mg TAB] Losartan [Cozaar] 12.5 mg PO QDAY #30 tablet 02/25/19 Unknown Rx Metoprolol Xl [Metoprolol 25 mg PO QDAY #30 tablet 02/25/19 Unknown Rx SUCCINATE ER TAB] Warfarin [Coumadin] 7.5 mg PO DAILY@1700 #30 tablet 02/25/19 Unknown Rx Clindamycin [Clindamycin CAP] 300 mg PO Q8H 7 Days #21 cap 03/05/19 Unknown Rx Oxymetazoline 0.05% [Afrin] 2 spray NS BID #1 bottle 03/05/19 Unknown Rx diphenhydrAMINE [Benadryl CAP] 25 mg PO Q6HR PRN #30 capsule 03/05/19 Unknown Rx Allergies Allergy/AdvReac Type Severity Reaction Status Date / Time Penicillins Allergy Itching Verified 01/30/19 21:44 ED Review of Systems ROS: Stated complaint: KNOT ON NECK Other details as noted in HPI Constitutional: denies: chills, fever Eyes: denies: eye pain, eye discharge, vision change ENT: denies: ear pain, throat pain, congestion Respiratory: denies: cough, shortness of breath, wheezing Cardiovascular: denies: chest pain, palpitations Endocrine: no symptoms reported Gastrointestinal: denies: abdominal pain, nausea, vomiting, diarrhea Genitourinary: denies: urgency, dysuria Musculoskeletal: back pain, arthralgia, myalgia, other. 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) Hx Asthma: Yes Hx COPD: Yes - Surgical History Past Surgical History?: Yes Hx Open Heart Surgery: Yes (Mitral Valve Replacement) Hx Pacemaker: Yes Hx Internal Defibrillator: Yes - Social History Smoking Status: Former Smoker Substance Use Type: None - Medications Home Medications: Home Medications Medication Instructions Recorded Confirmed Last Taken Type Acetaminophen [Acetaminophen TAB] 650 mg PO Q4H PRN #15 tablet 02/25/19 Unknown Rx Aspirin [Aspirin BABY CHEW TAB] 81 mg PO QDAY #30 tab.chew 02/25/19 Unknown Rx AtorvaSTATin [Lipitor] 20 mg PO QHS #30 tablet 02/25/19 Unknown Rx Docusate Sodium [Colace CAP] 100 mg PO BID #15 capsule 02/25/19 Unknown Rx Furosemide [Lasix TAB] 40 mg PO QDAY #30 tablet 02/25/19 Unknown Rx HYDROcodone/APAP 10-325 [[place] 1 each PO Q4H PRN #15 tablet 02/25/19 Unknown Rx 10-325 mg TAB] Losartan [Cozaar] 12.5 mg PO QDAY #30 tablet 02/25/19 Unknown Rx Metoprolol Xl [Metoprolol 25 mg PO QDAY #30 tablet 02/25/19 Unknown Rx SUCCINATE ER TAB] Warfarin [Coumadin] 7.5 mg PO DAILY@1700 #30 tablet 02/25/19 Unknown Rx Clindamycin [Clindamycin CAP] 300 mg PO Q8H 7 Days #21 cap 03/05/19 Unknown Rx Oxymetazoline 0.05% [Afrin] 2 spray NS BID #1 bottle 03/05/19 Unknown Rx diphenhydrAMINE [Benadryl CAP] 25 mg PO Q6HR PRN #30 capsule 03/05/19 Unknown Rx ED Physical Exam - General Limitations: No Limitations General appearance: alert, in no apparent distress - Head Head exam: Present: atraumatic, normocephalic - Eye Eye exam: Present: normal appearance, PERRL, EOMI Pupils: Present: normal accommodation - ENT ENT exam: Present: normal orophraynx, mucous membranes moist, TM's normal bilaterally, normal external ear exam, other (bilat frontal and maxillary pain to palpation) - Expanded ENT Exam Expanded Ear exam: Present: normal external inspection Mouth exam: Absent: trismus Throat exam: Positive: tonsillar erythema, tonsillomegaly. Negative: tonsillar exudate, R peritonsillar mass, L peritonsillar mass, other (uvula midline no exudate no lesions no stridor ) - Neck Neck exam: Present: normal inspection, full ROM. Absent: tenderness, me ningismus, lymphadenopathy, thyromegaly - Expanded Neck Exam Expanded Neck exam: Present: carotid bruit (left ). Absent: tenderness, midline de formity, anterior neck swelling, thyroid mass, tracheal deviation - Respiratory Respiratory exam: Present: normal lung sounds bilaterally. Absent: respiratory distress, wheezes, stridor, chest wall tenderness - Cardiovascular Cardiovascular Exam: Present: regular rate, normal rhythm, normal heart sounds. Absent: systolic murmur, diastolic murmur, rubs, gallop - GI/Abdominal GI/Abdominal exam: Present: soft, normal bowel sounds. Absent: distended, tenderness, bruit, hernia - Rectal Rectal exam: Present: deferred - Extremities Exam Extremities exam: Present: normal inspection, full ROM, normal capillary refill. Absent: tenderness, pedal edema, joint swelling, calf tenderness - Back Exam Back exam: Present: normal inspection, full ROM. Absent: tenderness, CVA tenderness (R), CVA tenderness (L), muscle spasm, paraspinal tenderness, vertebral tenderness, rash noted - Neurological Exam Neurological exam: Present: alert, oriented X3, CN II-XII intact, normal gait. Absent: reflexes normal - Expanded Neurological Exam Expanded Patient oriented to: Present: person, place, time Speech: Present: fluid speech Cranial nerves: EOM's Intact: Normal, Gag Reflex: Normal, Tongue Deviation: Normal, Nystagmus: Normal, Facial Sensation: Normal Cerebellar function: Finger to Nose: Normal, Heel to Ugarte: Normal, Romberg: Normal Upper motor neuron: Agustin Neglect: Normal, Pronator Drift: Normal, Babinski Sign: Normal, Sensory Extinction: Normal Sensory exam: Upper Extremity Light Touch: Normal, Upper Extremity Pin Prick: Normal, Upper Extremity Temperature: Normal, UE 2 Point Discrimination: Normal, Lower Extremity Light Touch: Normal, Lower Extremity Pin Prick: Normal, Lower Extremity Temperature: Normal, LE 2 Point Discrimination: Normal Motor strength exam: RUE: 5, LUE: 5, RLE: 5, LLE: 5 DTR: bicep (R): 2+, bicep (L): 2+, ankle (R): 2+, ankle (L): 2+ Best Eye Response (Winston): (4) open spontaneously Best Motor Response (Winston): (6) obeys commands Best Verbal Response (Brennen): (5) oriented Winston Total: 15 - Psychiatric Psychiatric exam: Present: normal affect, normal mood - Skin Skin exam: Present: warm, dry, intact, normal color. Absent: rash ED Course Vital Signs 03/04/19 18:42 Temperature 97.8 F Pulse Rate 79 Respiratory 18 Rate Blood Pressure 124/78 O2 Sat by Pulse 96 Oximetry ED Medical Decision Making - Lab Data Result diagrams: 03/04/19 19:07 03/04/19 19:07 Labs 03/04/19 03/04/19 03/04/19 19:07 19:07 19:07 WBC 5.4 RBC 3.83 Hgb 10.1 L Hct 31.9 L MCV 83 L MCH 26 L MCHC 32 RDW 18.3 H Plt Count 184 Lymph % (Auto) 14.5 Mcminn % (Auto) 12.3 H Eos % (Auto) 0.4 Baso % (Auto) 1.0 Lymph # 0.8 L Mcminn # 0.7 Eos # 0.0 Baso # 0.1 Seg Neutrophils % 71.8 H Seg Neutrophils # 3.9 PT 35.4 H INR 3.60 H APTT 58.9 H Sodium 137 Potassium 4.7 Chloride 102.0 Carbon Dioxide 26 Anion Gap 14 BUN 17 Creatinine 1.2 Estimated GFR > 60 BUN/Creatinine Ratio 14 Glucose 99 Calcium 8.6 Total Bilirubin 0.60 AST 22 ALT 19 Alkaline Phosphatase 97 Troponin T Total Protein 7.5 Albumin 3.3 L Albumin/Globulin Ratio 0.8 03/04/19 23:40 WBC RBC Hgb Hct MCV MCH MCHC RDW Plt Count Lymph % (Auto) Mcminn % (Auto) Eos % (Auto) Baso % (Auto) Lymph # Mcminn # Eos # Baso # Seg Neutrophils % Seg Neutrophils # PT INR APTT Sodium Potassium Chloride Carbon Dioxide Anion Gap BUN Creatinine Estimated GFR BUN/Creatinine Ratio Glucose Calcium Total Bilirubin AST ALT Alkaline Phosphatase Troponin T < 0.010 Total Protein Albumin Albumin/Globulin Ratio - Radiology Data Radiology results: report reviewed, image reviewed Ordering Physician: ANGELINE THOMPSON NP Date of Service: 03/05/19 Procedure(s): CT neck w con Accession Number(s): [id number] cc: ANGELINE THOMPSON NP CT NECK WITH INTRAVENOUS CONTRAST AND MULTIPLANAR RECONSTRUCTION CLINICAL HISTORY: neck mass TECHNIQUE: 2.5 mm thick contiguous axial scans were obtained from the skull base down to the aortic arch during intravenous contrast administration. In addition to evaluation of axial source images sagittal and coronal multiplanar reconstructions were produced and reviewed for this report. FINDINGS: Limitations: This study was carried down to the level of the sternoclavicular junction. The aortic arch and much of the superior mediastinum were excluded. No abnormalities are seen along the course of the airway. Nasopharynx, oropharynx, hypopharynx, larynx and visualized portions of the subglottic airway all have an unremarkable appearance. There is no indication of cervical lymphadenopathy. Several normal-sized lymph nodes are identified. No abnormalities are seen in evaluation of the oral cavity and tongue. The floor the mouth has a normal appearance. The parotid and submandibular salivary glands have a normal appearance. Evaluation of the nasal cavity reveals no abnormality. The paranasal sinuses are remarkable for subtotal opacification of the right maxillary sinus. Consider possible right maxillary sinusitis. A small retention cyst or polyp is present at the base of the left maxillary sinus. 1-2 millimeters of mucosal thickening are observed in the frontal sinuses. Sphenoid sinuses and ethmoid air cells appear clear mastoid air cells and middle ear cavities have an unremarkable appearance. Bilateral exophthalmos is noted. Correlation with thyroid function testing is suggested to exclude hyperthyroidism and thyroid ophthalmopathy. Evaluation of the orbits reveals no additional abnormality. The thyroid gland is normal in size and homogeneous in attenuation. No significant focal thyroid lesions are identified. Evaluation of the cervical spine is remarkable for cervical spondylosis. Anterior osteophyte is observed at C5-6. Posterior osteophyte is present at C6-7. Facet joints are normally preserved bilaterally. Bilateral uncovertebral arthropathy is present at the C6-7 level where moderate left- sided foraminal stenosis is present.. Normal alignment is maintained. No significant degenerative changes are identified. Evaluation of the lung apices is remarkable for large, bilateral subpleural apical bullae. Largest of these is at the right lung apex. 2.2 x 4.7 x 4.6 bullous is identified. There is no indication of lung nodule or infiltrate. The visualized portions of the superior mediastinum have an unremarkable appearance. Enhancement of normal vascular structures is demonstrated. No areas of abnormal contrast enhancement are identified. Evaluation of the major vessels reveals no indication of hemodynamically significant stenosis along the course of the carotid or vertebral arteries. ICD wire leads enter the innominate vein directly. Clinical history provided is "neck mass". I do not identified definite neck mass on this study. Correlation with physical examination is advised. If clinically warranted a repeat noncontrast CT acquisition with a radiopaque marker placed in the region of clinical concern could be considered. Alternatively, if clinically warranted, ultrasound could be utilized to assess the area of clinical concern. IMPRESSION: 1. Bilateral exopthalmos. Correlation with thyroid function tests is suggested to exclude thyroid ophthalmopathy. 2. Inflammatory disease in the paranasal sinuses. This is most pronounced in the right maxillary sinus as described above. 3. Large bilateral apical pulmonary bullae are identified. 4.Clinical history provided is "neck mass". I do not identified definite neck mass on this study. Correlation with physical examination is advised. If clinically warranted a repeat noncontrast CT acquisition with a radiopaque marker placed in the region of clinical concern could be considered. Alternatively, if clinically warranted, ultrasound could be utilized to assess the area of clinical concern. All CT imaging studies performed at this facility utilize dose modulation, iterative reconstruction or weight based dosing, if appropriate, to obtain the lowest achievable radiation dose. Signer Name: Lázaro Traylor MD Signed: 03/05/2019 1:48 AM Workstation Name: [id number] Transcribed By: REF Dictated By: LISBETH BACH MD Electronically Authenticated By: LISBETH BACH MD Signed Date/Time: 03/05/19 0148 DD/ TD/TT: - Medical Decision Making CT head/Neck : sinusitis , no neck masss no bleed , cxr: no opacities no infiltrates no pulm congestion, ekg: NSR no ST Elevated [place] interp to ED attending, there is no fever no chills no , pt endorses sinsus congestion and pressure will tx for same, pt will follow up with pcp in 2-3 days , return to ed if symptoms worsen, pt verbalized agreement and understanding of same. Critical care attestation.: If time is entered above; I have spent that time in minutes in the direct care of this critically ill patient, excluding procedure time. ED Disposition Clinical Impression: Neck pain, Dizziness Sinusitis Qualifiers: Sinusitis location: maxillary Chronicity: acute Recurrence: non-recurrent Qualified Code(s): J01.00 - Acute maxillary sinusitis, unspecified Disposition: - TO HOME OR SELFCARE Is pt being admited?: No Does the pt Need Aspirin: No Condition: Stable Instructions: Sinusitis (ED), Dizziness (ED) Prescriptions: Oxymetazoline 0.05% [Afrin] 2 spray NS BID #1 bottle diphenhydrAMINE [Benadryl CAP] 25 mg PO Q6HR PRN #30 capsule PRN Reason: sinus congestion Clindamycin [Clindamycin CAP] 300 mg PO Q8H 7 Days #21 cap Referrals: [facility] [Outside] - 3-5 Days ISSA CARIAS MD [Staff Physician] - 3-5 Days Forms: Work/School Release Form(ED) Time of Disposition: 03:17
--- NOTE | 2019-03-05 00:13 | XRay Report ---
CHEST 2 VIEWS INDICATION / CLINICAL INFORMATION: dizziness. COMPARISON: 02/21/2019 FINDINGS: SUPPORT DEVICES: Pacing device is stable in position. HEART / MEDIASTINUM: Mild cardiomegaly, stable. Sternotomy. Prosthetic mitral valve. LUNGS / PLEURA: Very small bilateral pleural effusions are stable. The lungs are otherwise grossly cl ear. No evidence for pneumonia. No interstitial pulmonary edema. No pneumothorax. ADDITIONAL FINDINGS: No significant additional findings. IMPRESSION: 1. Small bilateral pleural effusions are stable compared with recent study of 02/21/2019. Mild cardiom egaly. Signer Name: Shy Ponce MD Signed: 03/04/2019 11:08 PM Workstation Name: [id number]
--- NOTE | 2019-03-05 02:52 | Cat Scan Report ---
CT NECK WITH INTRAVENOUS CONTRAST AND MULTIPLANAR RECONSTRUCTION CLINICAL HISTORY: neck mass TECHNIQUE: 2.5 mm thick contiguous axial scans were obtained from the skull base down to the aortic arch during intravenous contrast administration. In addition to evaluation of axial source images sagittal and co hoa multiplanar reconstructions were produced and reviewed for this report. FINDINGS: Limitations: This study was carried down to the level of the sternoclavicular junction. The aortic ar ch and much of the superior mediastinum were excluded. No abnormalities are seen along the course of the airway. Nasopharynx, oropharynx, hypopharynx, laryn x and visualized portions of the subglottic airway all have an unremarkable appearance. There is no indication of cervical lymphadenopathy. Several normal-sized lymph nodes are identified. No abnormalities are seen in evaluation of the oral cavity and tongue. The floor the mouth has a norm al appearance. The parotid and submandibular salivary glands have a normal appearance. Evaluation of the nasal cavity reveals no abnormality. The paranasal sinuses are remarkable for subto uli opacification of the right maxillary sinus. Consider possible right maxillary sinusitis. A small retention cyst or polyp is present at the base of the left maxillary sinus. 1-2 millimeters of mucosa l thickening are observed in the frontal sinuses. Sphenoid sinuses and ethmoid air cells appear clear mastoid air cells and middle ear cavities have an unremarkable appearance. Bilateral exophthalmos is noted. Correlation with thyroid function testing is suggested to exclude hy perthyroidism and thyroid ophthalmopathy. Evaluation of the orbits reveals no additional abnormality. The thyroid gland is normal in size and homogeneous in attenuation. No significant focal thyroid lesi ons are identified. Evaluation of the cervical spine is remarkable for cervical spondylosis. Anterior osteophyte is obser paula at C5-6. Posterior osteophyte is present at C6-7. Facet joints are normally preserved bilaterally . Bilateral uncovertebral arthropathy is present at the C6-7 level where moderate left-sided foramina l stenosis is present.. Normal alignment is maintained. No significant degenerative changes are ident ified. Evaluation of the lung apices is remarkable for large, bilateral subpleural apical bullae. Largest of these is at the right lung apex. 2.2 x 4.7 x 4.6 bullous is identified. There is no indication of isaias ng nodule or infiltrate. The visualized portions of the superior mediastinum have an unremarkable stephanie earance. Enhancement of normal vascular structures is demonstrated. No areas of abnormal contrast enhancement are identified. Evaluation of the major vessels reveals no indication of hemodynamically significant stenosis along the course of the carotid or vertebral arteries. ICD wire leads enter the innominate vein directly. Clinical history provided is "neck mass". I do not identified definite neck mass on this study. Corre lation with physical examination is advised. If clinically warranted a repeat noncontrast CT acquisit ion with a radiopaque marker placed in the region of clinical concern could be considered. Alternativ adrian, if clinically warranted, ultrasound could be utilized to assess the area of clinical concern. IMPRESSION: 1. Bilateral exopthalmos. Correlation with thyroid function tests is suggested to exclude thyroid oph thalmopathy. 2. Inflammatory disease in the paranasal sinuses. This is most pronounced in the right maxillary sinu s as described above. 3. Large bilateral apical pulmonary bullae are identified. 4.Clinical history provided is "neck mass". I do not identified definite neck mass on this study. Cor relation with physical examination is advised. If clinically warranted a repeat noncontrast CT acquis ition with a radiopaque marker placed in the region of clinical concern could be considered. Alternat ively, if clinically warranted, ultrasound could be utilized to assess the area of clinical concern. All CT imaging studies performed at this facility utilize dose modulation, iterative reconstruction o r weight based dosing, if appropriate, to obtain the lowest achievable radiation dose. Signer Name: Lázaro Traylor MD Signed: 03/05/2019 1:48 AM Workstation Name: [id number]
== END 2019-03-05 03:43 | disposition home or self-care (01) ==
LOC: MERGE 18:20 → ED 18:20
DX: J32.1 Chronic frontal sinusitis (principal); J32.0 Chronic maxillary sinusitis; R42 Dizziness and giddiness; M54.2 Cervicalgia; R20.0 Anesthesia of skin; I11.0 Hypertensive heart disease with heart failure; I50.9 Heart failure, unspecified; E11.9 Type 2 diabetes mellitus without complications; J44.9 Chronic obstructive pulmonary disease, unspecified; F19.10 Other psychoactive substance abuse, uncomplicated; F10.10 Alcohol abuse, uncomplicated; I25.2 Old myocardial infarction; Z86.73 Personal history of transient ischemic attack (TIA), and cerebral infarction without residual deficits; Z98.890 Other specified postprocedural states; Z95.0 Presence of cardiac pacemaker; Z87.891 Personal history of nicotine dependence; Z88.0 Allergy status to penicillin; Z79.82 Long term (current) use of aspirin; Z79.01 Long term (current) use of anticoagulants; Z79.899 Other long term (current) drug therapy
CPT/HCPCS: 36415; 70491; 71046; 80053; 84484; 85025; 85610; 85730; 93005; 93010; 99284; Q9967

== ENCOUNTER 2019-03-22 12:34 | Inpatient (IN) | payer MEDICARE ==
[2019-03-22] MEDS ORDERED: ASPIRIN PO ONE (12:53)
--- NOTE | 2019-03-22 13:40 | XRay Report ---
CHEST 2 VIEWS INDICATION / CLINICAL INFORMATION: Chest Pain. COMPARISON: 03/05/19 FINDINGS: SUPPORT DEVICES: None. HEART / MEDIASTINUM: Heart is mildly enlarged but stable. Prosthetic mitral valve and left-sided dual -lead AICD are unchanged. LUNGS / PLEURA: No acute air space or interstitial disease. Small bilateral effusions versus pleural thickening is unchanged. No pneumothorax. ADDITIONAL FINDINGS: No significant additional findings. IMPRESSION: 1. Small bilateral pleural effusions versus pleural thickening, unchanged. Signer Name: Alex Giang MD Signed: 03/22/2019 1:36 PM Workstation Name: [id number]
[2019-03-22] MEDS ORDERED: NITROSTAT SL PRN (13:41)
--- NOTE | 2019-03-22 13:43 | Emergency Department Report ---
ED General Adult HPI - General Chief complaint: Chest Pain Stated complaint: DR SENT Time Seen by Provider: 03/22/19 13:27 Source: patient, RN notes reviewed, old records reviewed Mode of arrival: Wheelchair Limitations: No Limitations - History of Present Illness Initial comments: This is a 54-year-old gentleman. This patient is not known to this provider previously. His past medical history includes alcohol abuse, tobacco dependency, mechanical mitral valve replacement, on Coumadin, heart disease, stroke, pacemaker in situ. As to the ER with a complaint of his expert medical writer sent him to the emergency room. Patient endorses compliance with medications. Complains of lower extremity swelling, central chest pain, shortness of breath, orthopnea, unintentional weight gain. Symptoms constant, worse with physical exertion, decreased with rest. No recent cardiac risk stratification that he is aware of. Patient is not sure of the name of the expert medical writer that sent him in. -: Gradual, hour(s) Location: chest Radiation: non-radiation Quality: aching Consistency: other Improves with: other Worsens with: other Associated Symptoms: shortness of breath - Related Data Home Medications Medication Instructions Recorded Confirmed Last Taken ARIPiprazole [Abilify] 10 mg PO DAILY 03/22/19 03/22/19 Unknown FLUoxetine [PROzac] 20 mg PO QDAY 03/22/19 03/22/19 Unknown Famotidine [Pepcid] 20 mg PO BID 03/22/19 03/22/19 03/22/19 Ferrous Sulfate [Iron 325 MG] 325 mg PO BID 03/22/19 03/22/19 Unknown Gabapentin [Neurontin] 300 mg PO TID 03/22/19 03/22/19 Unknown Levothyroxine [Synthroid] 25 mcg PO QAM 03/22/19 03/22/19 Unknown Metoprolol Xl [Metoprolol 25 mg PO HS 03/22/19 03/22/19 Unknown SUCCINATE ER TAB] Trazodone HCl 150 mg PO HS 03/22/19 03/22/19 Unknown Trihexyphenidyl [Artane Tab] 2 mg PO QDAY 03/22/19 03/22/19 Unknown Warfarin [Coumadin] 5 mg PO QDAY 03/22/19 03/22/19 Unknown Previous Rx's Medication Instructions Recorded Last Taken Type Furosemide [Lasix TAB] 40 mg PO QDAY #30 tablet 02/25/19 Unknown Rx Allergies Allergy/AdvReac Type Severity Reaction Status Date / Time Penicillins Allergy Itching Verified 03/22/19 13:38 ED Review of Systems ROS: Stated complaint: DR SENT Other details as noted in HPI Constitutional: denies: fever Eyes: denies: eye discharge ENT: denies: epistaxis Respiratory: shortness of breath Cardiovascular: chest pain, edema Gastrointestinal: denies: vomiting Musculoskeletal: arthralgia, myalgia Skin: lesions (chronic lower extremity lesion) Neurological: weakness Psychiatric: anxiety ED Past Medical Hx - Past Medical History Hx Hypertension: Yes Hx CVA: Yes Hx Heart Attack/AMI: Yes Hx Congestive Heart Failure: Yes Hx Diabetes: Yes Hx Psychiatric Treatment: Yes (drug/alcohol abuse,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) Hx Asthma: Yes Hx COPD: Yes - Surgical History Hx Open Heart Surgery: Yes (Mitral Valve Replacement) Hx Pacemaker: Yes Hx Internal Defibrillator: Yes - Social History Smoking Status: Unknown if ever smoked Substance Use Type: None - Medications Home Medications: Home Medications Medication Instructions Recorded Confirmed Last Taken Type Furosemide [Lasix TAB] 40 mg PO QDAY #30 tablet 02/25/19 03/22/19 Unknown Rx ARIPiprazole [Abilify] 10 mg PO DAILY 03/22/19 03/22/19 Unknown History FLUoxetine [PROzac] 20 mg PO QDAY 03/22/19 03/22/19 Unknown History Famotidine [Pepcid] 20 mg PO BID 03/22/19 03/22/19 03/22/19 History Ferrous Sulfate [Iron 325 MG] 325 mg PO BID 03/22/19 03/22/19 Unknown History Gabapentin [Neurontin] 300 mg PO TID 03/22/19 03/22/19 Unknown History Levothyroxine [Synthroid] 25 mcg PO QAM 03/22/19 03/22/19 Unknown History Metoprolol Xl [Metoprolol 25 mg PO HS 03/22/19 03/22/19 Unknown History SUCCINATE ER TAB] Trazodone HCl 150 mg PO HS 03/22/19 03/22/19 Unknown History Trihexyphenidyl [Artane Tab] 2 mg PO QDAY 03/22/19 03/22/19 Unknown History Warfarin [Coumadin] 5 mg PO QDAY 03/22/19 03/22/19 Unknown History ED Physical Exam - General Limitations: No Limitations General appearance: alert, anxious - Head Head exam: Present: atraumatic, normocephalic - Eye Eye exam: Present: normal appearance, EOMI - ENT ENT exam: Present: normal exam, normal orophraynx, mucous membranes moist, normal external ear exam - Neck Neck exam: Present: normal inspection, full ROM. Absent: tenderness, meningismus - Respiratory Respiratory exam: Present: normal lung sounds bilaterally, rales. Absent: respiratory distress - Cardiovascular Cardiovascular Exam: Present: regular rate, normal rhythm, systolic murmur, JVD. Absent: bradycardia, tachycardia, irregular rhythm, diastolic murmur, rubs, gallop - GI/Abdominal GI/Abdominal exam: Present: soft. Absent: distended, tenderness, guarding, rebound, rigid, pulsatile mass - Rectal Rectal exam: Present: deferred - Extremities Exam Extremities exam: Present: normal inspection, full ROM, pedal edema, other (chronic wounds and excoriations noted.2+ pulses noted in the bilateral upper, lower extremities. Compartments soft. No long bony tenderness. The pelvis is stable.). Absent: calf tenderness - Back Exam Back exam: Present: normal inspection, full ROM. Absent: CVA tenderness (R), CVA tenderness (L), paraspinal tenderness, vertebral tenderness - Neurological Exam Neurological exam: Present: alert, oriented X3, other (Extraocular movements intact. Tongue midline. No facial droop. Facial sensation intact to light touch in the V1, V2, V3 distribution bilaterally. 5 and 5 strength in 4 extremities.. Sensation is intact to light touch in 4 extremities.). Absent: motor sensory deficit - Psychiatric Psychiatric exam: Present: normal mood, anxious - Skin Skin exam: Present: warm ED Course Vital Signs 03/22/19 12:54 Temperature 97.5 F L Pulse Rate 84 Respiratory 16 Rate Blood Pressure 139/87 [Left] O2 Sat by Pulse 95 Oximetry ED Medical Decision Making - Lab Data Result diagrams: 03/22/19 13:27 03/22/19 13:27 Vital Signs 03/22/19 12:54 Temperature 97.5 F L Pulse Rate 84 Respiratory 16 Rate Blood Pressure 139/87 [Left] O2 Sat by Pulse 95 Oximetry Lab Results 03/22/19 03/22/19 03/22/19 Range/Units 13:27 13:27 13:27 WBC 6.5 (4.5-11.0) K/mm3 RBC 3.88 (3.65-5.03) M/mm3 Hgb 10.3 L (11.8-15.2) gm/dl Hct 32.1 L (35.5-45.6) % MCV 83 L (84-94) fl MCH 27 L (28-32) pg MCHC 32 (32-34) % RDW 18.5 H (13.2-15.2) % Plt Count 223 (140-440) K/mm3 Lymph % (Auto) 12.3 L (13.4-35.0) % [place] % (Auto) 12.8 H (0.0-7.3) % Eos % (Auto) 0.2 (0.0-4.3) % Baso % (Auto) 0.8 (0.0-1.8) % Lymph # 0.8 L (1.2-5.4) K/mm3 [place] # 0.8 (0.0-0.8) K/mm3 Eos # 0.0 (0.0-0.4) K/mm3 Baso # 0.1 (0.0-0.1) K/mm3 Seg Neutrophils % 73.9 H (40.0-70.0) % Seg Neutrophils # 4.8 (1.8-7.7) K/mm3 PT 20.7 H (12.2-14.9) Sec. INR 1.82 H (0.87-1.13) APTT 32.7 (24.2-36.6) Sec. Sodium 135 L (137-145) mmol/L Potassium 4.7 (3.6-5.0) mmol/L Chloride 98.0 (98-107) mmol/L Carbon Dioxide 25 (22-30) mmol/L Anion Gap 17 mmol/L BUN 16 (9-20) mg/dL Creatinine 1.0 (0.8-1.5) mg/dL Estimated GFR > 60 ml/min BUN/Creatinine Ratio 16 % Glucose 79 (75-100) mg/dL Calcium 9.0 (8.4-10.2) mg/dL Magnesium (1.7-2.3) mg/dL Total Creatine Kinase (55-170) units/L Troponin T < 0.010 (0.00-0.029) ng/mL NT-Pro-B Natriuret Pep (0-900) pg/mL 03/22/19 Range/Units 13:27 WBC (4.5-11.0) K/mm3 RBC (3.65-5.03) M/mm3 Hgb (11.8-15.2) gm/dl Hct (35.5-45.6) % MCV (84-94) fl MCH (28-32) pg MCHC (32-34) % RDW (13.2-15.2) % Plt Count (140-440) K/mm3 Lymph % (Auto) (13.4-35.0) % [place] % (Auto) (0.0-7.3) % Eos % (Auto) (0.0-4.3) % Baso % (Auto) (0.0-1.8) % Lymph # (1.2-5.4) K/mm3 [place] # (0.0-0.8) K/mm3 Eos # (0.0-0.4) K/mm3 Baso # (0.0-0.1) K/mm3 Seg Neutrophils % (40.0-70.0) % Seg Neutrophils # (1.8-7.7) K/mm3 PT (12.2-14.9) Sec. INR (0.87-1.13) APTT (24.2-36.6) Sec. Sodium (137-145) mmol/L Potassium (3.6-5.0) mmol/L Chloride (98-107) mmol/L Carbon Dioxide (22-30) mmol/L Anion Gap mmol/L BUN (9-20) mg/dL Creatinine (0.8-1.5) mg/dL Estimated GFR ml/min BUN/Creatinine Ratio % Glucose (75-100) mg/dL Calcium (8.4-10.2) mg/dL Magnesium 1.70 (1.7-2.3) mg/dL Total Creatine Kinase 116 (55-170) units/L Troponin T (0.00-0.029) ng/mL NT-Pro-B Natriuret Pep 5609 H (0-900) pg/mL - EKG Data -: EKG Interpreted by Me - EKG Data 03/22/19 14:56 This is a normal sinus rhythm, 81 bpm, normal axis, QTC prolonged, abnormal EKG, not consistent with ST elevation myocardial infarction, flattened T waves in the lateral leads, the EKG is unchanged from prior EKG from 03/04/2019. - Radiology Data Radiology results: report reviewed, image reviewed Print Report Referring Physician: NUBIA BATISTA Patient Name: MAURICIO COREA Date of : 1965 Sex: Male Report Date: 2019-03-22 Report Status: Finalized Findings [facility] [address] [place] [address] XRay Report Signed Patient: MAURICIO COREA MR#: [id number] : 1965 Acct:[id number] Age/Sex: 54 / M ADM Date: 03/22/19 Loc: ED Attending Dr: Ordering Physician: NUBIA BATISTA MD Date of Service: 03/22/19 Procedure(s): XR chest routine 2V Accession Number(s): [id number] cc: NUBIA BATISTA MD Fluoro Time In Minutes: CHEST 2 VIEWS INDICATION / CLINICAL INFORMATION: Chest Pain. COMPARISON: 03/05/19 FINDINGS: SUPPORT DEVICES: None. HEART / MEDIASTINUM: Heart is mildly enlarged but stable. Prosthetic mitral v alve and left-sided dual-lead AICD are unchanged. LUNGS / PLEURA: No acute air space or interstitial disease. Small bilateral effusions versus pleural thickening is unchanged. No pneumothorax. ADDITIONAL FINDINGS: No significant additional findings. IMPRESSION: 1. Small bilateral pleural effusions versus pleural thickening, unchanged. Signer Name: Alex Giang MD Signed: 03/22/2019 1:36 PM Workstation Name: [id number] Transcribed By: DT Dictated By: Derek Giang MD Electronically Authenticated By: Derek Giang MD Signed Date/Time: 03/22/19 0187 - Medical Decision Making Differential diagnosis, including not limited to: Congestive heart failure, pneumonia, acute coronary syndrome, GERD, gastritis, costochondritis, pericarditis, myocarditis, pericardial effusion Assessment and plan: 54-year-old gentleman on chronic systemic anticoagulation, not tachycardic, not significantly hypoxic, with chest pain, shortness of breath, JVD, lower extremity edema, rales on his lower lung noe, suspect congestive heart failure. He will be dosed with full dose Lovenox, and high-dose Lasix. Discussed with cardiology on-call, Dr. Macedo, and Juan celestin, who will consult on the patient, and agree with high-dose Lovenox, and Lasix therapy, and patient presented to Hospital physician, Dr. Silva, who accepted the patient to the medical service for CHF exacerbation. Patient may benefit from a cardiac risk stratification, he is moderate risk for major adverse cardiac event as per the heart score, we'll defer this decision making to inpatient team and cardiology. I find pulmonary embolism to be unlikely given chronic systemic anticoagulation, and current history and physical. Find aortic disease to be unlikely given the equal pulses in upper and lower extremities, lack of severe hypertension, an x-ray of the chest morphology. Critical Care Time: Yes Critical care time in (mins) excluding proc time.: 35 Critical care attestation.: If time is entered above; I have spent that time in minutes in the direct care of this critically ill patient, excluding procedure time. ED Disposition Clinical Impression: H/O mitral valve replacement with mechanical valve, Subtherapeutic international normalized ratio (INR), Acute chest pain Acute exacerbation of CHF (congestive heart failure) Qualifiers: Heart failure type: unspecified Qualified Code(s): I50.9 - Heart failure, unspecified Disposition: -09 OP ADMIT IP TO THIS HOSP Is pt being admited?: Yes Does the pt Need Aspirin: No Condition: Good Instructions: Chest Pain (ED) Referrals: ROYAL LAY MD [Primary Care Provider] - 3-5 Days
--- NOTE | 2019-03-22 13:44 | Consultation ---
History of Present Illness Consult date: 03/22/19 Requesting physician: NUBIA BATISTA Consult reason: congestive heart failure History of present illness: The pt is a 54 YO male with a past medical history of CMP, HFrEF, AICD in situ (placed 2014), mechanical mitral valve (2014), anticoagulated on Coumadin, HTN, former ETOH use. He has been seen by our practice on prior hospitalization. Pt recently moved to [place] from [place] and briefly saw a electrical superintendent in [place], [place]. He has not been compliant with follow up in our office. He presented with c/o SOB, WATSON, BLE swelling and chest pain for the past several days. He describes his chest pain as an intermittent stabbing and dull pain which is aggravated by exertion. Pt reports he was recently hospitalized at [facility] (following discharge from [facility] on 02/25/2019) for HF. Pt reports compliance with his home medication regimen. He denies any recent ETOH or illicit drug use. Echo done 02/22/2019 showed EF 15-20%, abnormal diastolic function, RV severely dilated, RV systolic function mildly reduced, pacemaker wire in RV and RA, RA severely dilated, mechanical prosthetic mitral valve present well seated with normal function, mean gradient across mitral valve is 2mmHg. Past History Past Medical History: heart failure, hypertension Past Surgical History: Other (mechanical mitral valve; AICD in situ) Medications and Allergies Allergies Allergy/AdvReac Type Severity Reaction Status Date / Time Penicillins Allergy Itching Verified 03/22/19 13:38 Home Medications Medication Instructions Recorded Confirmed Last Taken Type Furosemide [Lasix TAB] 40 mg PO QDAY #30 tablet 02/25/19 03/22/19 Unknown Rx ARIPiprazole [Abilify] 10 mg PO DAILY 03/22/19 03/22/19 Unknown History FLUoxetine [PROzac] 20 mg PO QDAY 03/22/19 03/22/19 Unknown History Famotidine [Pepcid] 20 mg PO BID 03/22/19 03/22/19 03/22/19 History Ferrous Sulfate [Iron 325 MG] 325 mg PO BID 03/22/19 03/22/19 Unknown History Gabapentin [Neurontin] 300 mg PO TID 03/22/19 03/22/19 Unknown History Levothyroxine [Synthroid] 25 mcg PO QAM 03/22/19 03/22/19 Unknown History Metoprolol Xl [Metoprolol 25 mg PO HS 03/22/19 03/22/19 Unknown History SUCCINATE ER TAB] Trazodone HCl 150 mg PO HS 03/22/19 03/22/19 Unknown History Trihexyphenidyl [Artane Tab] 2 mg PO QDAY 03/22/19 03/22/19 Unknown History Warfarin [Coumadin] 5 mg PO QDAY 03/22/19 03/22/19 Unknown History Active Meds: Active Medications Nitroglycerin (Nitrostat) 0.4 mg SL .Q5MIN PRN PRN Reason: Chest Pain Review of Systems Constitutional: no fever, no chills, no sweats Ears, nose, mouth and throat: no ear pain, no nose pain, no sinus pressure, no sinus pain Cardiovascular: chest pain, orthopnea (chronic), edema, shortness of breath, dyspnea on exertion, paroxysmal nocturnal dyspnea, leg edema, decreased exercise tolerance, no palpitations, no rapid/irregular heart beat, no syncope, no lightheadedness Respiratory: shortness of breath, dyspnea on exertion, no cough, no congestion, no wheezing, no pain on inspiration Gastrointestinal: no abdominal pain, no nausea, no vomiting, no diarrhea, no constipation, no change in bowel habits Genitourinary Male: no dysuria, no hematuria, no flank pain, no discharge, no urinary frequency, no urinary hesitancy Musculoskeletal: no neck stiffness, no neck pain, no shooting arm pain, no arm numbness/tingling, no low back pain, no shooting leg pain Integumentary: no rash, no pruritis, no redness, no sores, no wounds Neurological: no head injury, no paralysis, no weakness, no parathesias, no numbness, no tingling, no seizures, no syncope Psychiatric: no anxiety Endocrine: no cold intolerance, no heat intolerance Hematologic/Lymphatic: no easy bruising, no easy bleeding Allergic/Immunologic: no urticaria, no wheezing Physical Examination Vital Signs Temp Pulse Resp BP Pulse Ox 97.5 F L 84 16 139/87 95 03/22/19 12:54 03/22/19 12:54 03/22/19 12:54 03/22/19 12:54 03/22/19 12:54 General appearance: no acute distress HEENT: Positive: PERRL, Normocephaly, Mucus Membranes Moist Neck: Positive: neck supple, trachea midline Cardiac: Positive: Reg Rate and Rhythm, S1/S2, S3 Lungs: Positive: Decreased Breath Sounds Neuro: Positive: Grossly Intact Abdomen: Negative: Tender Skin: Positive: Other (BLE blistering) Extremities: Present: +3 Edema (BLE) Results 03/22/19 13:27 03/22/19 13:27 - Imaging and Cardiology Echo: report reviewed (02/22/2019 showed EF 15-20%, abnormal diastolic function, RV severely dilated, RV systolic function mildly reduced, pacemaker wire in RV and RA, RA severely dilated, mechanical prosthetic mitral valve present well seated with normal function, mean gradient across mitral valve is 2mmHg. ) EKG: report reviewed, image reviewed EKG interpretations - Telemetry EKG Rhythm: Sinus Rhythm - EKG Sinus rhythms and dysrhythmias: sinus rhythm Assessment and Plan Initiate GDMT and IV lasix as tolerated. INR in noted to be subtherapeutic. Agree with lovenox and coumadin with tx INR 2.5-3.5. The patient has been seen in conjunction with Dr. Aranda who agrees with the assessment and plan of care. - Patient Problems (1) Acute HFrEF (heart failure with reduced ejection fraction) Current Visit: Yes Status: Acute (2) Cardiomyopathy Current Visit: Yes Status: Chronic Plan to address problem: former ETOH abuse (3) Automatic implantable cardioverter-defibrillator in situ Current Visit: Yes Status: Chronic (4) H/O mitral valve replacement with mechanical valve Current Visit: Yes Status: Chronic (5) HTN (hypertension) Current Visit: Yes Status: Chronic Qualifiers: Hypertension type: essential hypertension Qualified Code(s): I10 - Essential (primary) hypertension (6) Former consumption of alcohol Current Visit: Yes Status: Chronic
[2019-03-22 14:03] LABS: Basophils # (Auto) 0.1 K/mm3 (0.0-0.1); Basophils % (Auto) 0.8 % (0.0-1.8); Eosinophils % (Auto) 0.2 % (0.0-4.3); Hematocrit 32.1 % (35.5-45.6); Hemoglobin 10.3 gm/dl (11.8-15.2); Lymphocytes # (Auto) 0.8 K/mm3 (1.2-5.4); Lymphocytes % (Auto) 12.3 % (13.4-35.0); Mean Corpuscular HGB Conc 32 % (32-34); Mean Corpuscular Volume 83 fl (84-94); Monocytes # (Auto) 0.8 K/mm3 (0.0-0.8); Monocytes % (Auto) 12.8 % (0.0-7.3); Platelet Count 223 K/mm3 (140-440); Red Blood Count 3.88 M/mm3 (3.65-5.03); Red Cell Distribution Width 18.5 % (13.2-15.2)
[2019-03-22 14:11] LABS: INR 1.82 (0.87-1.13)
[2019-03-22 14:12] LABS: Partial Thromboplastin Time 32.7 Sec. (24.2-36.6)
[2019-03-22 14:19] LABS: BUN/Creatinine Ratio 16; Blood Urea Nitrogen 16 mg/dL (9-20); Hemolysis Index 8
[2019-03-22] MEDS ORDERED: LOVENOX SUB-Q ONE (14:36)
[2019-03-22] MEDS ORDERED: LASIX IV ONE (14:36)
[2019-03-22] MEDS: COUMADIN PO SCH (17:55)
[2019-03-22] MEDS: LASIX IV SCH (21:23)
--- NOTE | 2019-03-22 22:30 | History and Physical Report ---
History of Present Illness Date of examination: 03/22/19 Date of admission: 03/22/19 15:00 Chief complaint: Chest pain off and on for one week Increasing shortness of breath for 1 week History of present illness: 54 YO male with a past medical history of CMP, HFrEF, AICD in situ (placed 2014), mechanical mitral valve (2014), anticoagulated on Coumadin, HTN, former ETOH use presented with c/o SOB, WATSON, BLE swelling and chest pain for the past several days. He describes his chest pain as an intermittent stabbing and dull pain which is aggravated by exertion. Pt reports he was recently hospitalized at [facility] (following discharge from [facility] on 02/25/2019) for HF. Pt reports compliance with his home medication regimen. He denies any recent ETOH or illicit drug use. Echo done 02/22/2019 showed EF 15-20%, abnormal diastolic function, RV severely dilated, RV systolic function mildly reduced, pacemaker wire in RV and RA, RA severely dilated, mechanical prosthetic mitral valve present well seated with normal function, mean gradient across mitral valve is 2mmHg. 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) Asthma: Yes COPD: Yes Surgical History Open Heart Surgery: Yes (Mitral Valve Replacement) Pacemaker: Yes Internal Defibrillator: Yes Social History Smoking Status: Unknown if ever smoked Substance Use Type: None Family history Htn Medications Home Medications: Home Medications Medication Instructions Recorded Confirmed Last Taken Type Furosemide [Lasix TAB] 40 mg PO QDAY #30 tablet 02/25/19 03/22/19 Unknown Rx ARIPiprazole [Abilify] 10 mg PO DAILY 03/22/19 03/22/19 Unknown History FLUoxetine [PROzac] 20 mg PO QDAY 03/22/19 03/22/19 Unknown History Famotidine [Pepcid] 20 mg PO BID 03/22/19 03/22/19 03/22/19 History Ferrous Sulfate [Iron 325 MG] 325 mg PO BID 03/22/19 03/22/19 Unknown History Gabapentin [Neurontin] 300 mg PO TID 03/22/19 03/22/19 Unknown History Levothyroxine [Synthroid] 25 mcg PO QAM 03/22/19 03/22/19 Unknown History Metoprolol Xl [Metoprolol 25 mg PO HS 03/22/19 03/22/19 Unknown History SUCCINATE ER TAB] Trazodone HCl 150 mg PO HS 03/22/19 03/22/19 Unknown History Trihexyphenidyl [Artane Tab] 2 mg PO QDAY 03/22/19 03/22/19 Unknown History Warfarin [Coumadin] 5 mg PO QDAY 03/22/19 03/22/19 Unknown History Review of Systems ROS: Stated complaint: DR SENT Other details as noted in HPI Constitutional: denies: fever Eyes: denies: eye discharge ENT: denies: epistaxis Respiratory: shortness of breath Cardiovascular: chest pain, edema Gastrointestinal: denies: vomiting Musculoskeletal: arthralgia, myalgia Skin: lesions (chronic lower extremity lesion) Neurological: weakness Psychiatric: anxiety 14 point review of systems--otherwise negative Past History Past Medical History: heart failure, hypertension Past Surgical History: Other (mechanical mitral valve; AICD in situ) Medications and Allergies Allergies Allergy/AdvReac Type Severity Reaction Status Date / Time Penicillins Allergy Itching Verified 03/22/19 13:38 Home Medications Medication Instructions Recorded Confirmed Last Taken Type Furosemide [Lasix TAB] 40 mg PO QDAY #30 tablet 02/25/19 03/22/19 Unknown Rx ARIPiprazole [Abilify] 10 mg PO DAILY 03/22/19 03/22/19 Unknown History FLUoxetine [PROzac] 20 mg PO QDAY 03/22/19 03/22/19 Unknown History Famotidine [Pepcid] 20 mg PO BID 03/22/19 03/22/19 03/22/19 History Ferrous Sulfate [Iron 325 MG] 325 mg PO BID 03/22/19 03/22/19 Unknown History Gabapentin [Neurontin] 300 mg PO TID 03/22/19 03/22/19 Unknown History Levothyroxine [Synthroid] 25 mcg PO QAM 03/22/19 03/22/19 Unknown History Metoprolol Xl [Metoprolol 25 mg PO HS 03/22/19 03/22/19 Unknown History SUCCINATE ER TAB] Trazodone HCl 150 mg PO HS 03/22/19 03/22/19 Unknown History Trihexyphenidyl [Artane Tab] 2 mg PO QDAY 03/22/19 03/22/19 Unknown History Warfarin [Coumadin] 5 mg PO QDAY 03/22/19 03/22/19 Unknown History Active Meds: Active Medications Enoxaparin Sodium (Lovenox) 90 mg 1 mg/kg (90 mg) SUB-Q Q12HR [facility] Furosemide (Lasix) 40 mg IV BID [facility] Last Admin: 03/22/19 21:23 Dose: 40 mg Documented by: Losartan Potassium (Cozaar) 25 mg PO DAILY [facility] Metoprolol Succinate (Toprol Xl) 25 mg PO DAILY [facility] Nitroglycerin (Nitrostat) 0.4 mg SL .Q5MIN PRN PRN Reason: Chest Pain Spironolactone (Aldactone) 25 mg PO DAILY [facility] Warfarin Sodium (Coumadin) 7.5 mg PO DAILY@1700 [facility] Last Admin: 03/22/19 17:55 Dose: 7.5 mg Documented by: Exam - Constitutional Vitals: Temp Pulse Resp BP Pulse Ox 97.6 F 81 20 128/90 95 03/22/19 19:51 03/22/19 19:52 03/22/19 19:51 03/22/19 19:51 03/22/19 19:52 General appearance: Present: mild distress, well-nourished - EENT Eyes: Present: PERRL ENT: hearing intact, clear oral mucosa - Neck Neck: Present: supple, normal ROM - Respiratory Respiratory effort: normal Respiratory: bilateral: CTA, rales - Cardiovascular Rhythm: regular Heart Sounds: Present: S1 & S2. Absent: rub, click - Extremities Extremities: no ischemia, pulses symmetrical, No edema Extremity abnormal: edema (2+ pedal edema) Peripheral Pulses: within normal limits - Abdominal General gastrointestinal: Present: soft, non-tender, non-distended, normal bowel sounds Male genitourinary: Present: normal - Rectal Rectal Exam: deferred - Integumentary Integumentary: Present: clear, warm, dry - Musculoskeletal Musculoskeletal: gait normal, strength equal bilaterally - Psychiatric Psychiatric: appropriate mood/affect, intact judgment & insight - Neurologic Neurologic: CNII-XII intact, moves all extremities - Allied Health Allied health notes reviewed: nursing, case management Results - Labs CBC & Chem 7: 03/22/19 13:27 03/22/19 13:27 Labs: Laboratory Last Values WBC 6.5 K/mm3 (4.5-11.0) 03/22/19 13:27 RBC 3.88 M/mm3 (3.65-5.03) 03/22/19 13:27 Hgb 10.3 gm/dl (11.8-15.2) L 03/22/19 13:27 Hct 32.1 % (35.5-45.6) L 03/22/19 13:27 MCV 83 fl (84-94) L 03/22/19 13:27 MCH 27 pg (28-32) L 03/22/19 13:27 MCHC 32 % (32-34) 03/22/19 13:27 RDW 18.5 % (13.2-15.2) H 03/22/19 13:27 Plt Count 223 K/mm3 (140-440) 03/22/19 13:27 Lymph % (Auto) 12.3 % (13.4-35.0) L 03/22/19 13:27 [place] % (Auto) 12.8 % (0.0-7.3) H 03/22/19 13:27 Eos % (Auto) 0.2 % (0.0-4.3) 03/22/19 13:27 Baso % (Auto) 0.8 % (0.0-1.8) 03/22/19 13:27 Lymph # 0.8 K/mm3 (1.2-5.4) L 03/22/19 13:27 [place] # 0.8 K/mm3 (0.0-0.8) 03/22/19 13:27 Eos # 0.0 K/mm3 (0.0-0.4) 03/22/19 13:27 Baso # 0.1 K/mm3 (0.0-0.1) 03/22/19 13:27 Seg Neutrophils % 73.9 % (40.0-70.0) H 03/22/19 13:27 Seg Neutrophils # 4.8 K/mm3 (1.8-7.7) 03/22/19 13:27 PT 20.7 Sec. (12.2-14.9) H 03/22/19 13:27 INR 1.82 (0.87-1.13) H 03/22/19 13:27 APTT 32.7 Sec. (24.2-36.6) 03/22/19 13:27 Sodium 135 mmol/L (137-145) L 03/22/19 13:27 Potassium 4.7 mmol/L (3.6-5.0) 03/22/19 13:27 Chloride 98.0 mmol/L (98-107) 03/22/19 13:27 Carbon Dioxide 25 mmol/L (22-30) 03/22/19 13:27 17 mmol/L 03/22/19 13:27 BUN 16 mg/dL (9-20) 03/22/19 13:27 1.0 mg/dL (0.8-1.5) 03/22/19 13:27 Estimated GFR > 60 ml/min 03/22/19 13:27 16 % 03/22/19 13:27 Glucose 79 mg/dL (75-100) 03/22/19 13:27 POC Glucose 82 (70-105) 03/22/19 17:00 Calcium 9.0 mg/dL (8.4-10.2) 03/22/19 13:27 Magnesium 1.70 mg/dL (1.7-2.3) 03/22/19 13:27 116 units/L (55-170) 03/22/19 13:27 < 0.010 ng/mL (0.00-0.029) 03/22/19 20:11 NT-Pro-B Natriuret Pep 5609 pg/mL (0-900) H 03/22/19 13:27 Short CBC 03/22/19 Range/Units 13:27 WBC 6.5 (4.5-11.0) K/mm3 Hgb 10.3 L (11.8-15.2) gm/dl Hct 32.1 L (35.5-45.6) % Plt Count 223 (140-440) K/mm3 BMP 03/22/19 13:27 Sodium 135 L Potassium 4.7 Chloride 98.0 Carbon Dioxide 25 BUN 16 Creatinine 1.0 Glucose 79 Calcium 9.0 Cardiac Enzymes 03/22/19 03/22/19 03/22/19 Range/Units 13:27 13:27 14:51 Total Creatine Kinase 116 (55-170) units/L Troponin T < 0.010 < 0.010 (0.00-0.029) ng/mL 03/22/19 Range/Units 20:11 Total Creatine Kinase (55-170) units/L Troponin T < 0.010 (0.00-0.029) ng/mL - Imaging and Cardiology EKG: report reviewed (sinus rhythm heart rate of 80 per minute no acute ST-T wave changes) Imaging and Cardiology: Chest x-ray HEART / MEDIASTINUM: Heart is mildly enlarged but stable. Prosthetic mitral valve and left-sided dual-lead AICD are unchanged. LUNGS / PLEURA: No acute air space or interstitial disease. Small bilateral effusions versus pleural thickening is unchanged. No pneumothorax. ADDITIONAL FINDINGS: No significant additional findings. IMPRESSION: 1. Small bilateral pleural effusions versus pleural thickening, unchanged. Assessment and Plan Advance Directives: Yes (full code) VTE prophylaxis?: Chemical Plan of care discussed with patient/family: Yes - Patient Problems (1) Acute HFrEF (heart failure with reduced ejection fraction) Current Visit: Yes Status: Acute Plan to address problem: IV Lasix 40 mg every 12 initiated Patient had a recent echocardiogram in February 2019 with ejection fraction of 15- 20% Patient has a history of mitral valve replacement Anticoagulation to be therapeutic (2) Chest pain Current Visit: Yes Status: Acute Qualifiers: Chest pain type: unspecified Qualified Code(s): R07.9 - Chest pain, unspecified Plan to address problem: Chest pain for 1 week Serial troponins Lexiscan was not ordered Will defer to cardiology (3) Anticoagulation goal of INR 2.5 to 3.5 Current Visit: Yes Status: Acute Plan to address problem: Lovenox to be given to bridge over to Coumadin level of 2.5 INR Pharmacy consult requested for Coumadin dosing (4) Hypothyroidism (acquired) Current Visit: Yes Status: Chronic Plan to address problem: Continue levothyroxin and check TSH (5) Hypertension Current Visit: Yes Status: Chronic Qualifiers: Hypertension type: essential hypertension Qualified Code(s): I10 - Essential (primary) hypertension Plan to address problem: Continue metoprolol (6) Depression Current Visit: Yes Status: Chronic Qualifiers: Depression Type: unspecified Qualified Code(s): F32.9 - Major depressive disorder, single episode, unspecified Plan to address problem: Continue fluoxetine and aripiprazole (7) Peripheral neuropathy Current Visit: Yes Status: Chronic Qualifiers: Peripheral neuropathy type: polyneuropathy, unspecified Qualified Code(s): G62.9 - Polyneuropathy, unspecified Plan to address problem: Continue gabapentin (8) DVT prophylaxis Current Visit: Yes Status: Acute Plan to address problem: Patient on Lovenox and Coumadin and GI prophylaxis
[2019-03-22] MEDS ORDERED: TYLENOL PO PRN (22:54)
[2019-03-22] MEDS ORDERED: SODIUM CHLORIDE FLUSH SYRINGE 10 ML IV PRN (22:54)
[2019-03-22] MEDS ORDERED: ZOFRAN IV PRN (22:54)
[2019-03-22] MEDS ORDERED: D50W (25GM) Syringe IV PRN (23:11)
[2019-03-22] MEDS: DILAUDID IV PRN (23:34)
[2019-03-22] MEDS: K-DUR PO SCH (23:35)
[2019-03-23] MEDS: SYNTHROID PO SCH (05:30)
[2019-03-23 05:33] LABS: INR 2.31 (0.87-1.13)
[2019-03-23 05:48] LABS: BUN/Creatinine Ratio 13; Blood Urea Nitrogen 16 mg/dL (9-20); Calcium 8.7 mg/dL (8.4-10.2); Hemolysis Index 0
[2019-03-23] MEDS: PERCOCET 5/325 PO PRN ×2 (06:06→18:37)
[2019-03-23] MEDS ORDERED: COUMADIN PO SCH (10:00)
[2019-03-23] MEDS ORDERED: TOPROL XL PO SCH ×2 (10:00→22:00)
[2019-03-23] MEDS: ALDACTONE PO SCH (10:33)
[2019-03-23] MEDS: K-DUR PO SCH ×2 (10:34→22:31)
[2019-03-23] MEDS: NEURONTIN PO SCH ×3 (10:34→21:45)
[2019-03-23] MEDS: COZAAR PO SCH (10:35)
[2019-03-23] MEDS: ABILIFY PO SCH (10:35)
[2019-03-23] MEDS: ARTANE PO SCH (10:35)
[2019-03-23] MEDS: LASIX IV SCH ×2 (10:36→22:31)
[2019-03-23] MEDS: PROzac PO SCH (10:36)
[2019-03-23] MEDS: LOVENOX SUB-Q SCH ×2 (10:36→22:30)
[2019-03-23] MEDS: SODIUM CHLORIDE FLUSH SYRINGE 10 ML IV SCH ×2 (10:36→22:32)
[2019-03-23] MEDS: PEPCID PO SCH ×2 (10:36→22:31)
[2019-03-23] MEDS: HumaLOG SUB-Q SCH ×4 (10:37→22:50)
[2019-03-23] MEDS: FEOSOL PO SCH ×2 (10:38→22:31)
--- NOTE | 2019-03-23 11:19 | Progress Note ---
Assessment and Plan Assessment and plan: - Patient Problems (1) Acute systolic CHF/HFrEF (heart failure with reduced ejection fraction) Current Visit: Yes Status: Acute Plan to address problem: IV Lasix 40 mg every 12 initiated Patient had a recent echocardiogram in February 2019 with ejection fraction of 15- 20% Patient has a history of mitral valve replacement Anticoagulation to be therapeutic (2) Chest pain Current Visit: Yes Status: Acute Qualifiers: Chest pain type: unspecified Qualified Code(s): R07.9 - Chest pain, un specified Plan to address problem: Chest pain for 1 week Serial troponins Lexiscan was not ordered Will defer to cardiology (3) Anticoagulation goal of INR 2.5 to 3.5 Current Visit: Yes Status: Acute Plan to address problem: Lovenox to be given to bridge over to Coumadin level of 2.5 INR Pharmacy consult requested for Coumadin dosing (4) Hypothyroidism (acquired) Current Visit: Yes Status: Chronic Plan to address problem: Continue levothyroxin and check TSH (5) Hypertension Current Visit: Yes Status: Chronic Qualifiers: Hypertension type: essential hypertension Qualified Code(s): I10 - Essential (primary) hypertension Plan to address problem: Continue metoprolol (6) Depression Current Visit: Yes Status: Chronic Qualifiers: Depression Type: unspecified Qualified Code(s): F32.9 - Major depressive disorder, single episode, unspecified Plan to address problem: Continue fluoxetine and aripiprazole (7) Peripheral neuropathy Current Visit: Yes Status: Chronic Qualifiers: Peripheral neuropathy type: polyneuropathy, unspecified Qualified Code(s): G62.9 - Polyneuropathy, unspecified Plan to address problem: Continue gabapentin (8) DVT prophylaxis Current Visit: Yes Status: Acute Plan to address problem: Patient on Lovenox and Coumadin and GI prophylaxis History Interval history: Patient seen and examined Patient c/o some shortness of breathn Alert awake,not in distress vital signs stable Hospitalist Physical - Constitutional Vitals: Temp Pulse Resp BP Pulse Ox 98.3 F 76 20 130/79 96 03/23/19 04:39 03/23/19 10:35 03/23/19 04:39 03/23/19 10:35 03/23/19 04:40 General appearance: Present: no acute distress, well-nourished - EENT Eyes: Present: PERRL, EOM intact - Neck Neck: Present: supple, normal ROM - Respiratory Respiratory effort: normal Respiratory: bilateral: diminished, negative: rales, rhonchi, wheezing - Cardiovascular Rhythm: regular Heart Sounds: Present: S1 & S2 - Extremities Extremities: no ischemia Extremity abnormal: edema - Abdominal General gastrointestinal: soft, non-tender, non-distended, normal bowel sounds - Integumentary Integumentary: Present: clear, warm - Psychiatric Psychiatric: appropriate mood/affect, cooperative - Neurologic Neurologic: CNII-XII intact, moves all extremities Results - Labs CBC & Chem 7: 03/22/19 13:27 03/23/19 04:53 Labs: Laboratory Last Values WBC 6.5 K/mm3 (4.5-11.0) 03/22/19 13:27 RBC 3.88 M/mm3 (3.65-5.03) 03/22/19 13:27 Hgb 10.3 gm/dl (11.8-15.2) L 03/22/19 13:27 Hct 32.1 % (35.5-45.6) L 03/22/19 13:27 MCV 83 fl (84-94) L 03/22/19 13:27 MCH 27 pg (28-32) L 03/22/19 13:27 MCHC 32 % (32-34) 03/22/19 13:27 RDW 18.5 % (13.2-15.2) H 03/22/19 13:27 Plt Count 223 K/mm3 (140-440) 03/22/19 13:27 Lymph % (Auto) 12.3 % (13.4-35.0) L 03/22/19 13:27 [place] % (Auto) 12.8 % (0.0-7.3) H 03/22/19 13:27 Eos % (Auto) 0.2 % (0.0-4.3) 03/22/19 13:27 Baso % (Auto) 0.8 % (0.0-1.8) 03/22/19 13:27 Lymph # 0.8 K/mm3 (1.2-5.4) L 03/22/19 13:27 [place] # 0.8 K/mm3 (0.0-0.8) 03/22/19 13:27 Eos # 0.0 K/mm3 (0.0-0.4) 03/22/19 13:27 Baso # 0.1 K/mm3 (0.0-0.1) 03/22/19 13:27 Seg Neutrophils % 73.9 % (40.0-70.0) H 03/22/19 13:27 Seg Neutrophils # 4.8 K/mm3 (1.8-7.7) 03/22/19 13:27 PT 24.9 Sec. (12.2-14.9) H 03/23/19 04:53 INR 2.31 (0.87-1.13) H 03/23/19 04:53 APTT 32.7 Sec. (24.2-36.6) 03/22/19 13:27 Sodium 138 mmol/L (137-145) 03/23/19 04:53 Potassium 4.0 mmol/L (3.6-5.0) 03/23/19 04:53 Chloride 100.1 mmol/L (98-107) 03/23/19 04:53 Carbon Dioxide 27 mmol/L (22-30) 03/23/19 04:53 15 mmol/L 03/23/19 04:53 BUN 16 mg/dL (9-20) 03/23/19 04:53 1.2 mg/dL (0.8-1.5) 03/23/19 04:53 Estimated GFR > 60 ml/min 03/23/19 04:53 13 % 03/23/19 04:53 Glucose 95 mg/dL (75-100) 03/23/19 04:53 POC Glucose 88 (70-105) 03/23/19 09:19 6.1 % (4-6) H 03/23/19 04:53 Calcium 8.7 mg/dL (8.4-10.2) 03/23/19 04:53 Magnesium 1.70 mg/dL (1.7-2.3) 03/22/19 13:27 116 units/L (55-170) 03/22/19 13:27 < 0.010 ng/mL (0.00-0.029) 03/22/19 20:11 NT-Pro-B Natriuret Pep 5609 pg/mL (0-900) H 03/22/19 13:27 TSH 6.220 mlU/mL (0.270-4.200) H 03/22/19 23:27 Active Medications - Current Medications Current Medications: Generic Name Dose Route Start Last Admin Trade Name Freq PRN Reason Stop Dose Admin Acetaminophen 650 mg 03/22/19 22:54 Tylenol PO Q4H PRN Pain MILD(1-3)/Fever >100.5/ROWAN Aripiprazole 10 mg 03/23/19 10:00 03/23/19 10:35 Abilify PO 10 mg DAILY JEB Administration Dextrose 50 ml 03/22/19 23:11 D50w (25gm) Syringe IV PRN PRN Hypoglycemia Enoxaparin Sodium 90 mg 03/23/19 10:00 03/23/19 10:36 Lovenox 1 mg/kg (90 mg) 90 mg SUB-Q Administration Q12HR COUNT INCLUDES [facility] Famotidine 20 mg 03/23/19 10:00 03/23/19 10:36 Pepcid PO 20 mg BID JEB Administration Ferrous Sulfate 325 mg 03/23/19 10:00 03/23/19 10:38 Feosol PO 325 mg BID JEB Administration Fluoxetine HCl 20 mg 03/23/19 10:00 03/23/19 10:36 Prozac PO 20 mg QDAY JEB Administration Furosemide 40 mg 03/22/19 22:00 03/23/19 10:36 Lasix IV 40 mg BID JEB Administration Gabapentin 300 mg 03/23/19 08:00 03/23/19 10:34 Neurontin PO 300 mg TID JEB Administration Hydromorphone HCl 0.5 mg 03/22/19 22:54 03/22/19 23:34 Dilaudid IV 0.5 mg Q3H PRN Administration Pain , Severe (7-10) Insulin Human Lispro 0 unit 03/23/19 07:30 03/23/19 10:37 Humalog SUB-Q Not Given ACHS COUNT INCLUDES [facility] Protocol Levothyroxine Sodium 25 mcg 03/23/19 06:00 03/23/19 05:30 Synthroid PO 25 mcg QAM@0600 JEB Administration Losartan Potassium 25 mg 03/23/19 10:00 03/23/19 10:35 Cozaar PO 25 mg DAILY JEB Administration Metoprolol Succinate 25 mg 03/23/19 22:00 Toprol Xl PO HS JEB Nitroglycerin 0.4 mg 03/22/19 13:41 Nitrostat SL .Q5MIN PRN Chest Pain Ondansetron HCl 4 mg 03/22/19 22:54 Zofran IV Q8H PRN Nausea And Vomiting Oxycodone/Acetaminophen 1 tab 03/22/19 22:54 03/23/19 06:06 Percocet 5/325 PO 1 tab Q6H PRN Administration Pain, Moderate (4-6) Potassium Chloride 20 meq 03/22/19 23:00 03/23/19 10:34 K-Dur PO 20 meq Q12HR JEB Administration Sodium Chloride 10 ml 03/23/19 10:00 03/23/19 10:36 Sodium Chloride Flush Syringe 10 Ml IV 10 ml BID JEB Administration Sodium Chloride 10 ml 03/22/19 22:54 Sodium Chloride Flush Syringe 10 Ml IV PRN PRN LINE FLUSH Spironolactone 25 mg 03/23/19 10:00 03/23/19 10:33 Aldactone PO 25 mg DAILY JEB Administration Trazodone HCl 150 mg 03/23/19 22:00 Desyrel PO QHS JEB Trihexyphenidyl HCl 2 mg 03/23/19 10:00 03/23/19 10:35 Artane PO 2 mg QDAY JEB Administration Warfarin Sodium 7.5 mg 03/22/19 17:00 03/22/19 17:55 Coumadin PO 7.5 mg DAILY@1700 JEB Administration
[2019-03-23] MEDS: DILAUDID IV PRN (11:42)
--- NOTE | 2019-03-23 12:15 | Progress Note ---
Assessment and Plan Continue mgt. INR goal 2.5-3.5. - Patient Problems (1) Acute HFrEF (heart failure with reduced ejection fraction) Current Visit: Yes Status: Acute (2) Chest pain Current Visit: Yes Status: Acute Qualifiers: Chest pain type: unspecified Qualified Code(s): R07.9 - Chest pain, unspecified (3) H/O mitral valve replacement with mechanical valve Current Visit: Yes Status: Chronic (4) Cardiomyopathy Current Visit: Yes Status: Chronic (5) Automatic implantable cardioverter-defibrillator in situ Current Visit: Yes Status: Chronic (6) PAD (peripheral artery disease) Current Visit: Yes Status: Chronic Subjective Date of service: 03/23/19 Principal diagnosis: Acute HFrEF, CP, CMP[facility] Interval history: He c/o intermittent RLE pain/claudication for a while. Claims he recently saw a [facility] and has had arterial Doppler just before hospitalization. Objective Vital Signs Last Vital Signs Temp 98.3 F 03/23/19 04:39 Pulse 76 03/23/19 10:35 Resp 20 03/23/19 04:39 BP 130/79 03/23/19 10:35 Pulse Ox 96 03/23/19 04:40 - Physical Examination General: No Apparent Distress HEENT: Positive: EOMI, Normocephaly, Mucus Membranes Moist Neck: Positive: neck supple, trachea midline, JVD/HJR Cardiac: Positive: Reg Rate and Rhythm Lungs: Positive: clear to auscultation Neuro: Positive: Grossly Intact Abdomen: Positive: Soft, Active Bowel Sounds. Negative: Tender Skin: Positive: Other (BLE blistering) Musculoskeletal: Normal Range of Motion Extremities: Present: edema (trace charu leg edema) - Labs and Meds Coagulation 03/22/19 03/23/19 Range/Units 13:27 04:53 PT 20.7 H 24.9 H (12.2-14.9) Sec. INR 1.82 H 2.31 H (0.87-1.13) APTT 32.7 (24.2-36.6) Sec. CBC 03/22/19 Range/Units 13:27 WBC 6.5 (4.5-11.0) K/mm3 RBC 3.88 (3.65-5.03) M/mm3 Hgb 10.3 L (11.8-15.2) gm/dl Hct 32.1 L (35.5-45.6) % Plt Count 223 (140-440) K/mm3 Lymph # 0.8 L (1.2-5.4) K/mm3 [place] # 0.8 (0.0-0.8) K/mm3 Eos # 0.0 (0.0-0.4) K/mm3 Baso # 0.1 (0.0-0.1) K/mm3 Comprehensive Metabolic Panel 03/22/19 03/23/19 Range/Units 13:27 04:53 Sodium 135 L 138 (137-145) mmol/L Potassium 4.7 4.0 (3.6-5.0) mmol/L Chloride 98.0 100.1 (98-107) mmol/L Carbon Dioxide 25 27 (22-30) mmol/L BUN 16 16 (9-20) mg/dL Creatinine 1.0 1.2 (0.8-1.5) mg/dL Glucose 79 95 (75-100) mg/dL Calcium 9.0 8.7 (8.4-10.2) mg/dL - Imaging and Cardiology EKG: report reviewed (sinus rhythm heart rate of 80 per minute no acute ST-T wave changes) Echo: report reviewed (02/22/2019 showed EF 15-20%, abnormal diastolic function, RV severely dilated, RV systolic function mildly reduced, pacemaker wire in RV and RA, RA severely dilated, mechanical prosthetic mitral valve present well seated with normal function, mean gradient across mitral valve is 2mmHg. ) - Telemetry EKG Rhythm: Sinus Rhythm - EKG Sinus rhythms and dysrhythmias: sinus rhythm
[2019-03-23] MEDS: COUMADIN PO SCH (18:37)
[2019-03-23] MEDS ORDERED: NON-FORMULARY (Trazodone Hcl [Trazodone Hcl] 150 MG) PO SCH (22:00)
[2019-03-23] MEDS ORDERED: DESYREL PO SCH (22:00)
[2019-03-24] MEDS: PERCOCET 5/325 PO PRN (01:18)
[2019-03-24 04:53] LABS: INR 2.68 (0.87-1.13)
[2019-03-24] MEDS: SYNTHROID PO SCH (05:53)
[2019-03-24] MEDS: DILAUDID IV PRN (08:33)
[2019-03-24] MEDS: NEURONTIN PO SCH ×2 (08:37→17:07)
[2019-03-24] MEDS: ALDACTONE PO SCH (08:59)
[2019-03-24] MEDS: ABILIFY PO SCH (08:59)
[2019-03-24] MEDS: FEOSOL PO SCH (08:59)
[2019-03-24] MEDS: LOVENOX SUB-Q SCH (09:00)
[2019-03-24] MEDS: LASIX IV SCH (09:00)
[2019-03-24] MEDS: HumaLOG SUB-Q SCH ×2 (09:00→18:51)
[2019-03-24] MEDS: K-DUR PO SCH (09:00)
[2019-03-24] MEDS: SODIUM CHLORIDE FLUSH SYRINGE 10 ML IV SCH (09:00)
[2019-03-24] MEDS: COZAAR PO SCH (09:01)
[2019-03-24] MEDS: PROzac PO SCH (09:01)
[2019-03-24] MEDS: PEPCID PO SCH (09:01)
[2019-03-24] MEDS ORDERED: K-DUR PO SCH (10:00)
[2019-03-24] MEDS ORDERED: LASIX IV SCH (10:00)
[2019-03-24 10:51] LABS: BUN/Creatinine Ratio 14; Blood Urea Nitrogen 17 mg/dL (9-20); Calcium 9.6 mg/dL (8.4-10.2); Hemolysis Index 0
--- NOTE | 2019-03-24 12:05 | Progress Note ---
Assessment and Plan Stable cardiac status. May be DCed to f/u with his switch box installer at our office in 1 week. - Patient Problems (1) Acute HFrEF (heart failure with reduced ejection fraction) Current Visit: Yes Status: Acute (2) Chest pain Current Visit: Yes Status: Acute Qualifiers: Chest pain type: unspecified Qualified Code(s): R07.9 - Chest pain, unspecified (3) H/O mitral valve replacement with mechanical valve Current Visit: Yes Status: Chronic (4) Cardiomyopathy Current Visit: Yes Status: Chronic (5) Automatic implantable cardioverter-defibrillator in situ Current Visit: Yes Status: Chronic (6) PAD (peripheral artery disease) Current Visit: Yes Status: Chronic Subjective Date of service: 03/24/19 Principal diagnosis: Acute HFrEF, CP, CMP, AICD, h/o Mech MVR Interval history: No complaint. Objective Vital Signs Temp Pulse Pulse Pulse Pulse Resp BP 03/24/19 09:01 109/75 03/24/19 08:59 109/75 03/24/19 08:24 98.1 F 60 18 109/75 03/24/19 06:00 66 03/24/19 04:02 97.3 F L 66 16 99/70 03/23/19 23:27 97.9 F 69 16 125/72 03/23/19 22:33 65 117/77 03/23/19 22:00 69 70 65 65 18 03/23/19 19:14 97.7 F 70 17 114/82 03/23/19 17:38 98.3 F 65 18 122/87 03/23/19 14:00 76 Pulse Ox 03/24/19 09:01 03/24/19 08:59 03/24/19 08:24 96 03/24/19 06:00 03/24/19 04:02 99 03/23/19 23:27 99 03/23/19 22:33 03/23/19 22:00 95 03/23/19 19:14 99 03/23/19 17:38 98 03/23/19 14:00 - Physical Examination General: No Apparent Distress HEENT: Positive: EOMI, Normocephaly, Mucus Membranes Moist Neck: Positive: neck supple, trachea midline, JVD/HJR Cardiac: Positive: Reg Rate and Rhythm, S1/S2 Lungs: Positive: clear to auscultation Neuro: Positive: Grossly Intact Abdomen: Positive: Soft, Active Bowel Sounds. Negative: Tender Skin: Positive: Other (some blistering) Musculoskeletal: Normal Range of Motion Extremities: Absent: edema - Labs and Meds Coagulation 03/24/19 Range/Units 04:09 PT 28.0 H (12.2-14.9) Sec. INR 2.68 H (0.87-1.13) Comprehensive Metabolic Panel 03/24/19 Range/Units 10:03 Sodium 140 (137-145) mmol/L Potassium 4.5 (3.6-5.0) mmol/L Chloride 96.7 L (98-107) mmol/L Carbon Dioxide 33 H (22-30) mmol/L BUN 17 (9-20) mg/dL Creatinine 1.2 (0.8-1.5) mg/dL Glucose 89 (75-100) mg/dL Calcium 9.6 (8.4-10.2) mg/dL - Imaging and Cardiology EKG: report reviewed (sinus rhythm heart rate of 80 per minute no acute ST-T wave changes) Echo: report reviewed (02/22/2019 showed EF 15-20%, abnormal diastolic function, RV severely dilated, RV systolic function mildly reduced, pacemaker wire in RV and RA, RA severely dilated, mechanical prosthetic mitral valve present well seated with normal function, mean gradient across mitral valve is 2mmHg. ) - Telemetry EKG Rhythm: Sinus Rhythm - EKG Sinus rhythms and dysrhythmias: sinus rhythm
[2019-03-24] MEDS: ARTANE PO SCH (12:26)
--- NOTE | 2019-03-24 12:55 | Discharge Summary ---
Providers - Providers Date of Admission: 03/22/19 15:00 Date of discharge: 03/24/19 Attending physician: EUGENIE CEE 03/22/19 Consult to Case Management [CONS] Routine Services Needed at Discharge: Home Health Services Notified:: caser 03/22/19 13:38 Consult to Physician [CONS] Urgent Comment: TL CHASE CAME TO SEE PT IN ER 19 @1342 Consulting Provider: PARMJIT CACERES Physician Instructions: Reason For Exam: cp chf "sent by cardiology" [facility] Reason for admission: acute systolic congestive heart failure/chest pain Condition: Good Pertinent studies: Chest x-ray; small bilateral pleural effusions versus pleural thickening Hospital course: 54 YO male with a past medical history of CMP, HFrEF, AICD in situ (placed 2014), mechanical mitral valve (2014), anticoagulated on Coumadin, HTN, former ETOH use presented with c/o SOB, WATSON, BLE swelling and chest pain for the past several days. Pt reports he was recently hospitalized at [place] (following discharge from [facility] on 02/25/2019) for HF. Pt reports compliance with his home medication patient was appropriately managed, evaluated by cardiology medications were optimized, had subtherapeutic INR, as patient has mechanical mitral valve replacement Target INR needs to be 2.5-3.5, patient was started on Lovenox and Coumadin, daily INRs was 2.5 and above Today patient is comfortable no new complaints vital signs stable, INR is 2.68 Cleared by cardiology for discharge and follow-up as outpatient both for monitoring INR as well as follow-up visit Patient is hemodynamically and clinically stable at discharge Discharge diagnosis: -- Acute systolic CHF/HFrEF (heart failure with reduced ejection fraction) Current Visit: Yes Status: Acute Diuretics, beta blockers, anabel inhibitors, nitrates Input output monitoring, low sodium diet, fluid restriction Patient had a recent echocardiogram in February 2019 with ejection fraction of 15- 20% -- Chest pain Current Visit: Yes Status: Acute Plan to address problem: Chest pain for 1 week,Serial troponins Cardiology evaluated, no plans of imaging study --Mitral valve replacement; on Anticoagulation goal of INR 2.5 to 3.5 Current Visit: Yes Status: Acute Plan to address problem: DC Lovenox and continue Coumadin. INR today is 2.6 Next INR in 2 days --Hypothyroidism (acquired) Current Visit: Yes Status: Chronic Plan to address problem: Continue levothyroxin and check TSH -- Hypertension Current Visit: Yes Status: Chronic Plan to address problem: Continue metoprolol --Depression Current Visit: Yes Status: Chronic Plan to address problem: Continue fluoxetine and aripiprazole -- Peripheral neuropathy Current Visit: Yes Status: Chronic Plan to address problem: Continue gabapentin -- DVT prophylaxis Current Visit: Yes Status: Acute Plan to address problem: Patient on Coumadin Stable at discharge Disposition: DC-01 TO HOME OR SELFCARE Time spent for discharge: 32 min Core Measure Documentation - Palliative Care Palliative Care/ Comfort Measures: Not Applicable - Core Measures Any of the following diagnoses?: none Exam - Constitutional Vitals: Temp Pulse Resp BP Pulse Ox 98.1 F 60 18 109/75 96 03/24/19 08:24 03/24/19 08:24 03/24/19 08:24 03/24/19 09:01 03/24/19 08:24 General appearance: Present: no acute distress, well-nourished - EENT Eyes: Present: PERRL, EOM intact - Neck Neck: Present: supple, normal ROM - Respiratory Respiratory effort: normal Respiratory: bilateral: diminished, negative: rales, rhonchi, wheezing - Cardiovascular Rhythm: regular Heart Sounds: Present: S1 & S2 - Extremities Extremities: no ischemia, No edema - Abdominal General gastrointestinal: Present: soft, non-tender, non-distended, normal bowel sounds - Integumentary Integumentary: Present: clear, warm - Musculoskeletal Musculoskeletal: strength equal bilaterally, generalized weakness - Psychiatric Psychiatric: appropriate mood/affect, cooperative - Neurologic Neurologic: moves all extremities Plan Activity: advance as tolerated, fall precautions Diet: low salt, other (cardiac diet) Additional Instructions: Advised to follow-up with vascular surgeon per scheduled. Next INR check 2 days at food clerk's office[target INR 2.5-3.5]. if he notices any bleeding stop coumadin and contact MD Follow up with: ROYAL LAY MD [Primary Care Provider] - 3-5 Days NILO DAMIAN MD [Staff Physician] - 7 Days Prescriptions: RX: Spironolactone [Aldactone] 25 mg PO DAILY #30 tablet RX: Warfarin [Coumadin] 7.5 mg PO DAILY@1700 #30 tablet RX: Losartan [Cozaar] 25 mg PO DAILY #30 tablet
[2019-03-24 16:40] VITALS: BP 131/87
[2019-03-24] MEDS: COUMADIN PO SCH (17:07)
[2019-03-25] MEDS ORDERED: LASIX PO SCH (10:00)
== END 2019-03-24 19:15 | disposition home or self-care (01) | DRG 293 ==
LOC: ED 12:34 → MERGE 15:00 → 4A 15:00
PROVIDERS: ADMIT Internal Medicine; ATTEND Internal Medicine
DX: I11.0 Hypertensive heart disease with heart failure (principal); I50.23 Acute on chronic systolic (congestive) heart failure; I42.9 Cardiomyopathy, unspecified; E11.42 Type 2 diabetes mellitus with diabetic polyneuropathy; I73.9 Peripheral vascular disease, unspecified; E03.9 Hypothyroidism, unspecified; J44.9 Chronic obstructive pulmonary disease, unspecified; F32.9 Major depressive disorder, single episode, unspecified; Z79.01 Long term (current) use of anticoagulants; Z86.73 Personal history of transient ischemic attack (TIA), and cerebral infarction without residual deficits; I25.2 Old myocardial infarction; Z82.49 Family history of ischemic heart disease and other diseases of the circulatory system; Z95.2 Presence of prosthetic heart valve; Z95.810 Presence of automatic (implantable) cardiac defibrillator; Z79.899 Other long term (current) drug therapy; Z88.0 Allergy status to penicillin
CPT/HCPCS: 36415; 71046; 80048; 82550; 82962; 83036; 83735; 83880; 84443; 84484; 85025; 85610; 85730; 87116; 93005; 93010; 96372; 96374; G0378; J1170; J1650; J1940

== ENCOUNTER 2019-04-06 23:28 | Emergency (ER) | payer MEDICARE ==
[2019-04-07] MEDS ORDERED: LEVAQUIN 750MG/150ML 750 MG/150 ML BAG IV ONE (00:30)
[2019-04-07 00:41] LABS: Basophils # (Auto) 0.1 K/mm3 (0.0-0.1); Basophils % (Auto) 1.2 % (0.0-1.8); Eosinophils # (Auto) 0.1 K/mm3 (0.0-0.4); Eosinophils % (Auto) 1.2 % (0.0-4.3); Hematocrit 30.9 % (35.5-45.6); Hemoglobin 10.1 gm/dl (11.8-15.2); Lymphocytes % (Auto) 16.6 % (13.4-35.0); Mean Corpuscular HGB Conc 33 % (32-34); Mean Corpuscular Volume 83 fl (84-94); Monocytes # (Auto) 0.8 K/mm3 (0.0-0.8); Monocytes % (Auto) 12.2 % (0.0-7.3); Platelet Count 247 K/mm3 (140-440); Red Blood Count 3.71 M/mm3 (3.65-5.03); Red Cell Distribution Width 18.6 % (13.2-15.2)
--- NOTE | 2019-04-07 00:53 | XRay Report ---
CHEST 1 VIEW INDICATION / CLINICAL INFORMATION: cough. COMPARISON: 03/22/2019 FINDINGS: SUPPORT DEVICES: ICD remains in place on the left. HEART / MEDIASTINUM: Moderately enlarged with evidence of mitral valve replacement. LUNGS / PLEURA: No significant pulmonary or pleural abnormality. No pneumothorax. ADDITIONAL FINDINGS: No significant additional findings. IMPRESSION: 1. No acute findings. Signer Name: Chu Allen MD Signed: 04/07/2019 12:48 AM Workstation Name: [id number]
[2019-04-07 01:35] LABS: Alanine Aminotransferase 21 units/L (7-56); Albumin 3.6 g/dL (3.9-5); BUN/Creatinine Ratio 19; Blood Urea Nitrogen 19 mg/dL (9-20); Calcium 9.1 mg/dL (8.4-10.2); Hemolysis Index 0
[2019-04-07] MEDS ORDERED: NORCO 5/325 PO ONE (01:37)
[2019-04-07] MEDS ORDERED: NORCO 5/325 ONE (01:40)
--- NOTE | 2019-04-07 01:46 | Emergency Department Report ---
ED General Adult HPI - General Chief complaint: Fever Stated complaint: PNEUMONIA Time Seen by Provider: 04/07/19 00:16 Source: patient, EMS Mode of arrival: Ambulatory Limitations: No Limitations - History of Present Illness Initial comments: 54 y.o male patient with malaise, fever, bodyaches, for the past three nights, cough. Patient [place] [facility] [place], given abx but has not yet completed. -: Gradual Location: chest Radiation: non-radiation Severity scale (0 -10): 8 Quality: aching Consistency: intermittent Improves with: none Worsens with: none Associated Symptoms: fever/chills Treatments Prior to Arrival: none - Related Data Home Medications Medication Instructions Recorded Confirmed Last Taken Warfarin Sodium [Coumadin] 5 mg PO 01/24/19 01/24/19 ARIPiprazole [Abilify TAB] 10 mg PO DAILY 03/22/19 03/22/19 Unknown FLUoxetine [PROzac] 20 mg PO QDAY 03/22/19 03/22/19 Unknown Famotidine [Pepcid] 20 mg PO BID 03/22/19 03/22/19 03/22/19 Ferrous Sulfate [Iron 325 MG] 325 mg PO BID 03/22/19 03/22/19 Unknown Gabapentin [Neurontin] 300 mg PO TID 03/22/19 03/22/19 Unknown Levothyroxine [Synthroid] 25 mcg PO QAM 03/22/19 03/22/19 Unknown Metoprolol Xl [Metoprolol 25 mg PO HS 03/22/19 03/22/19 Unknown SUCCINATE ER TAB] Trazodone HCl 150 mg PO HS 03/22/19 03/22/19 Unknown Trihexyphenidyl [Artane] 2 mg PO QDAY 03/22/19 03/22/19 Unknown Previous Rx's Medication Instructions Recorded Last Taken Type Cyclobenzaprine [Flexeril] 10 mg PO TID PRN #15 tablet 01/24/19 Unknown Rx Benzonatate [Tessalon Perles] 100 mg PO Q8HR PRN #20 capsule 02/01/19 Unknown Rx traMADol [Ultram 50 MG tab] 50 mg PO Q6HR PRN #20 tablet 02/01/19 Unknown Rx Furosemide [Lasix TAB] 40 mg PO QDAY #30 tablet 02/25/19 Unknown Rx Losartan [Cozaar] 25 mg PO DAILY #30 tablet 03/24/19 Unknown Rx Spironolactone [Aldactone] 25 mg PO DAILY #30 tablet 03/24/19 Unknown Rx Warfarin [Coumadin] 7.5 mg PO DAILY@1700 #30 tablet 03/24/19 Unknown Rx Allergies Allergy/AdvReac Type Severity Reaction Status Date / Time Penicillins Allergy Unknown Verified 03/29/19 08:12 ED Review of Systems ROS: Stated complaint: PNEUMONIA Other details as noted in HPI Comment: All other systems reviewed and negative Respiratory: cough Cardiovascular: chest pain ED Past Medical Hx - Past Medical History Previous Medical History?: Yes Hx Hypertension: Yes Hx CVA: Yes Hx Heart Attack/AMI: Yes Hx Congestive Heart Failure: Yes Hx Diabetes: Yes Hx Deep Vein Thrombosis: Yes Hx Pulmonary Embolism: Yes Hx Psychiatric Treatment: Yes (drug/alcohol abuse,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) Hx Asthma: Yes Hx COPD: Yes Additional medical history: hyperthyroidism - Surgical History Past Surgical History?: Yes Hx Open Heart Surgery: Yes (Mitral Valve Replacement) Hx Pacemaker: Yes Hx Internal Defibrillator: Yes Additional Surgical History: "lung surgery", mitral valve replacement, internal defib/pacemaker - Social History Smoking Status: Former Smoker Substance Use Type: None - Medications Home Medications: Home Medications Medication Instructions Recorded Confirmed Last Taken Type Cyclobenzaprine [Flexeril] 10 mg PO TID PRN #15 tablet 01/24/19 Unknown Rx Warfarin Sodium [Coumadin] 5 mg PO 01/24/19 01/24/19 History Benzonatate [Tessalon Perles] 100 mg PO Q8HR PRN #20 capsule 02/01/19 Unknown Rx traMADol [Ultram 50 MG tab] 50 mg PO Q6HR PRN #20 tablet 02/01/19 Unknown Rx Furosemide [Lasix TAB] 40 mg PO QDAY #30 tablet 02/25/19 03/22/19 Unknown Rx ARIPiprazole [Abilify TAB] 10 mg PO DAILY 03/22/19 03/22/19 Unknown History FLUoxetine [PROzac] 20 mg PO QDAY 03/22/19 03/22/19 Unknown History Famotidine [Pepcid] 20 mg PO BID 03/22/19 03/22/19 03/22/19 History Ferrous Sulfate [Iron 325 MG] 325 mg PO BID 03/22/19 03/22/19 Unknown History Gabapentin [Neurontin] 300 mg PO TID 03/22/19 03/22/19 Unknown History Levothyroxine [Synthroid] 25 mcg PO QAM 03/22/19 03/22/19 Unknown History Metoprolol Xl [Metoprolol 25 mg PO HS 03/22/19 03/22/19 Unknown History SUCCINATE ER TAB] Trazodone HCl 150 mg PO HS 03/22/19 03/22/19 Unknown History Trihexyphenidyl [Artane] 2 mg PO QDAY 03/22/19 03/22/19 Unknown History Losartan [Cozaar] 25 mg PO DAILY #30 tablet 03/24/19 Unknown Rx Spironolactone [Aldactone] 25 mg PO DAILY #30 tablet 03/24/19 Unknown Rx Warfarin [Coumadin] 7.5 mg PO DAILY@1700 #30 tablet 03/24/19 Unknown Rx ED Physical Exam - General Limitations: No Limitations General appearance: alert, in no apparent distress - Head Head exam: Present: atraumatic, normocephalic - Eye Eye exam: Present: normal appearance, PERRL, EOMI Pupils: Present: normal accommodation - ENT ENT exam: Present: normal exam - Neck Neck exam: Present: normal inspection - Respiratory Respiratory exam: Present: normal lung sounds bilaterally - Cardiovascular Cardiovascular Exam: Present: regular rate, normal rhythm - GI/Abdominal GI/Abdominal exam: Present: soft, normal bowel sounds - Extremities Exam Extremities exam: Present: normal inspection - Neurological Exam Neurological exam: Present: alert, oriented X3, CN II-XII intact - Psychiatric Psychiatric exam: Present: normal affect, normal mood - Skin Skin exam: Present: warm ED Course Vital Signs 04/07/19 04/07/19 04/07/19 00:09 01:17 01:40 Temperature 98.2 F Pulse Rate 96 H Respiratory 18 18 16 Rate Blood Pressure 137/100 Blood Pressure 137/100 [Left] O2 Sat by Pulse 98 98 Oximetry ED Medical Decision Making - Lab Data Result diagrams: 04/07/19 00:25 04/07/19 00:25 Critical care attestation.: If time is entered above; I have spent that time in minutes in the direct care of this critically ill patient, excluding procedure time. ED Disposition Clinical Impression: Acute bronchitis Qualifiers: Bronchitis organism: other organism Qualified Code(s): J20.8 - Acute bronchitis due to other specified organisms Disposition: DC-01 TO HOME OR SELFCARE Is pt being admited?: No Does the pt Need Aspirin: No Condition: Stable Instructions: Acute Bronchitis (ED) Referrals: ROYAL LAY MD [Primary Care Provider] - 3-5 Days
[2019-04-07 02:33] VITALS: BP 145/100
== END 2019-04-07 02:24 | disposition home or self-care (01) ==
LOC: ED 23:28
DX: J20.8 Acute bronchitis due to other specified organisms (principal); I11.0 Hypertensive heart disease with heart failure; I50.9 Heart failure, unspecified; I25.2 Old myocardial infarction; E11.9 Type 2 diabetes mellitus without complications; J44.9 Chronic obstructive pulmonary disease, unspecified; E05.90 Thyrotoxicosis, unspecified without thyrotoxic crisis or storm; Z86.711 Personal history of pulmonary embolism; Z79.01 Long term (current) use of anticoagulants; Z86.718 Personal history of other venous thrombosis and embolism; Z95.5 Presence of coronary angioplasty implant and graft; Z87.891 Personal history of nicotine dependence; Z79.899 Other long term (current) drug therapy; Z88.0 Allergy status to penicillin
CPT/HCPCS: 36415; 71045; 80053; 84484; 85025; 87040; 93005; 93010; 99284; J1956

== ENCOUNTER 2019-06-30 11:38 | Emergency (ER) | payer MEDICARE ==
--- NOTE | 2019-06-30 12:13 | Emergency Department Report ---
ED General Adult HPI - General Stated complaint: DIFFICULTY BREATHING Time Seen by Provider: 06/30/19 11:44 - History of Present Illness Initial comments: Patient presents to the emergency department with a chief complaint of increased shortness of breath. Patient states he feels like fluid is built up in his lungs. Patient has a history congestive heart failure into his 80 mg of Lasix daily. He complains of increased shortness of breath on lying flat and having to sleep sitting up for last couple of days. Patient complains of chest tightness but denies sarai chest pain. He denies abdominal pain, headache, muscle weakness. -: Gradual Severity scale (0 -10): 0 Consistency: constant Improves with: other (sitting up) Worsens with: other (lying flat) Associated Symptoms: denies other symptoms - Related Data Home Medications Medication Instructions Recorded Confirmed Last Taken Warfarin Sodium [Coumadin] 5 mg PO 01/24/19 01/24/19 ARIPiprazole [Abilify TAB] 10 mg PO DAILY 03/22/19 03/22/19 Unknown FLUoxetine [PROzac] 20 mg PO QDAY 03/22/19 03/22/19 Unknown Famotidine [Pepcid] 20 mg PO BID 03/22/19 03/22/19 03/22/19 Ferrous Sulfate [Iron 325 MG] 325 mg PO BID 03/22/19 03/22/19 Unknown Gabapentin 300 mg PO TID 03/22/19 03/22/19 Unknown Levothyroxine [Synthroid] 25 mcg PO QAM 03/22/19 03/22/19 Unknown Metoprolol Xl [Metoprolol 25 mg PO HS 03/22/19 03/22/19 Unknown SUCCINATE ER TAB] Trazodone HCl 150 mg PO HS 03/22/19 03/22/19 Unknown Trihexyphenidyl [Artane] 2 mg PO QDAY 03/22/19 03/22/19 Unknown Previous Rx's Medication Instructions Recorded Last Taken Type Cyclobenzaprine [Flexeril] 10 mg PO TID PRN #15 tablet 01/24/19 Unknown Rx Benzonatate [Tessalon Perles] 100 mg PO Q8HR PRN #20 capsule 02/01/19 Unknown Rx traMADol [Ultram 50 MG tab] 50 mg PO Q6HR PRN #20 tablet 02/01/19 Unknown Rx Furosemide [Lasix TAB] 40 mg PO QDAY #30 tablet 02/25/19 Unknown Rx Losartan [Cozaar] 25 mg PO DAILY #30 tablet 03/24/19 Unknown Rx Spironolactone [Aldactone] 25 mg PO DAILY #30 tablet 03/24/19 Unknown Rx Warfarin [Coumadin] 7.5 mg PO DAILY@1700 #30 tablet 03/24/19 Unknown Rx Allergies Allergy/AdvReac Type Severity Reaction Status Date / Time Penicillins Allergy Unknown Verified 03/29/19 08:12 ED Review of Systems ROS: Stated complaint: DIFFICULTY BREATHING Other details as noted in HPI Comment: All other systems reviewed and negative Constitutional: denies: chills, fever Eyes: denies: eye pain, eye discharge, vision change ENT: denies: ear pain, throat pain Respiratory: denies: cough, shortness of breath, wheezing Cardiovascular: denies: chest pain, palpitations Endocrine: no symptoms reported Gastrointestinal: denies: abdominal pain, nausea, diarrhea Genitourinary: denies: urgency, dysuria Musculoskeletal: denies: back pain, joint swelling, arthralgia Skin: denies: rash, lesions Neurological: denies: headache, weakness, paresthesias Psychiatric: denies: anxiety, depression Hematological/Lymphatic: denies: easy bleeding, easy bruising ED Past Medical Hx - Past Medical History Hx Hypertension: Yes Hx CVA: Yes Hx Heart Attack/AMI: Yes Hx Congestive Heart Failure: Yes Hx Diabetes: Yes Hx Deep Vein Thrombosis: Yes Hx Pulmonary Embolism: Yes Hx Psychiatric Treatment: Yes (drug/alcohol abuse,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) Hx Asthma: Yes Hx COPD: Yes Additional medical history: hyperthyroidism - Surgical History Hx Open Heart Surgery: Yes (Mitral Valve Replacement) Hx Pacemaker: Yes Hx Internal Defibrillator: Yes Additional Surgical History: "lung surgery", mitral valve replacement, internal defib/pacemaker - Social History Smoking Status: Former Smoker Substance Use Type: None - Medications Home Medications: Home Medications Medication Instructions Recorded Confirmed Last Taken Type Cyclobenzaprine [Flexeril] 10 mg PO TID PRN #15 tablet 01/24/19 Unknown Rx Warfarin Sodium [Coumadin] 5 mg PO 01/24/19 01/24/19 History Benzonatate [Tessalon Perles] 100 mg PO Q8HR PRN #20 capsule 02/01/19 Unknown Rx traMADol [Ultram 50 MG tab] 50 mg PO Q6HR PRN #20 tablet 02/01/19 Unknown Rx Furosemide [Lasix TAB] 40 mg PO QDAY #30 tablet 02/25/19 03/22/19 Unknown Rx ARIPiprazole [Abilify TAB] 10 mg PO DAILY 03/22/19 03/22/19 Unknown History FLUoxetine [PROzac] 20 mg PO QDAY 03/22/19 03/22/19 Unknown History Famotidine [Pepcid] 20 mg PO BID 03/22/19 03/22/19 03/22/19 History Ferrous Sulfate [Iron 325 MG] 325 mg PO BID 03/22/19 03/22/19 Unknown History Gabapentin 300 mg PO TID 03/22/19 03/22/19 Unknown History Levothyroxine [Synthroid] 25 mcg PO QAM 03/22/19 03/22/19 Unknown History Metoprolol Xl [Metoprolol 25 mg PO HS 03/22/19 03/22/19 Unknown History SUCCINATE ER TAB] Trazodone HCl 150 mg PO HS 03/22/19 03/22/19 Unknown History Trihexyphenidyl [Artane] 2 mg PO QDAY 03/22/19 03/22/19 Unknown History Losartan [Cozaar] 25 mg PO DAILY #30 tablet 03/24/19 Unknown Rx Spironolactone [Aldactone] 25 mg PO DAILY #30 tablet 03/24/19 Unknown Rx Warfarin [Coumadin] 7.5 mg PO DAILY@1700 #30 tablet 03/24/19 Unknown Rx ED Physical Exam - General General appearance: alert, in no apparent distress - Head Head exam: Present: atraumatic, normocephalic - Eye Eye exam: Present: normal appearance, PERRL, EOMI - ENT ENT exam: Present: mucous membranes moist - Neck Neck exam: Present: normal inspection - Respiratory Respiratory exam: Present: rales. Absent: respiratory distress - Cardiovascular Cardiovascular Exam: Present: regular rate, normal rhythm. Absent: systolic murmur, diastolic murmur, rubs, gallop - GI/Abdominal GI/Abdominal exam: Present: soft, normal bowel sounds. Absent: distended, tenderness - Rectal Rectal exam: Present: deferred - Extremities Exam Extremities exam: Present: other (pending edema) - Back Exam Back exam: Present: normal inspection - Neurological Exam Neurological exam: Present: alert, oriented X3, CN II-XII intact. Absent: motor sensory deficit - Psychiatric Psychiatric exam: Present: normal affect, normal mood - Skin Skin exam: Present: warm, dry, intact, normal color. Absent: rash ED Course Vital Signs 06/30/19 06/30/19 11:50 12:23 Temperature 97.8 F Pulse Rate 83 82 Respiratory 12 19 Rate Blood Pressure 137/85 Blood Pressure 137/85 121/76 [Left] O2 Sat by Pulse 99 99 Oximetry ED Medical Decision Making - Lab Data Result diagrams: 06/30/19 12:14 06/30/19 12:14 Lab Results 06/30/19 06/30/19 06/30/19 Range/Units 12:14 12:14 12:14 WBC 7.2 (4.5-11.0) K/mm3 RBC 4.63 (3.65-5.03) M/mm3 Hgb 13.0 (11.8-15.2) gm/dl Hct 39.9 (35.5-45.6) % MCV 86 (84-94) fl MCH 28 (28-32) pg MCHC 33 (32-34) % RDW 17.7 H (13.2-15.2) % Plt Count 315 (140-440) K/mm3 Lymph % (Auto) 17.3 (13.4-35.0) % Webster % (Auto) 12.2 H (0.0-7.3) % Eos % (Auto) 2.4 (0.0-4.3) % Baso % (Auto) 2.9 H (0.0-1.8) % Lymph # 1.2 (1.2-5.4) K/mm3 Webster # 0.9 H (0.0-0.8) K/mm3 Eos # 0.2 (0.0-0.4) K/mm3 Baso # 0.2 H (0.0-0.1) K/mm3 Seg Neutrophils % 65.2 (40.0-70.0) % Seg Neutrophils # 4.7 (1.8-7.7) K/mm3 PT 17.8 H (12.2-14.9) Sec. INR 1.49 H (0.87-1.13) APTT 41.4 H (24.2-36.6) Sec. Sodium 141 (137-145) mmol/L Potassium 4.1 (3.6-5.0) mmol/L Chloride 95.5 L (98-107) mmol/L Carbon Dioxide 29 (22-30) mmol/L Anion Gap 21 mmol/L BUN 23 H (9-20) mg/dL Creatinine 1.4 (0.8-1.5) mg/dL Estimated GFR > 60 ml/min BUN/Creatinine Ratio 16 % Glucose 75 (75-100) mg/dL Calcium 9.7 (8.4-10.2) mg/dL Total Bilirubin 0.60 (0.1-1.2) mg/dL AST 24 (5-40) units/L ALT 20 (7-56) units/L Alkaline Phosphatase 103 (35-129) units/L Troponin T < 0.010 (0.00-0.029) ng/mL NT-Pro-B Natriuret Pep (0-900) pg/mL Total Protein 9.0 H (6.3-8.2) g/dL Albumin 4.9 (3.9-5) g/dL Albumin/Globulin Ratio 1.2 % 06/30/ Range/Units 12:14 WBC (4.5-11.0) K/mm3 RBC (3.65-5.03) M/mm3 Hgb (11.8-15.2) gm/dl Hct (35.5-45.6) % MCV (84-94) fl MCH (28-32) pg MCHC (32-34) % RDW (13.2-15.2) % Plt Count (140-440) K/mm3 Lymph % (Auto) (13.4-35.0) % Webster % (Auto) (0.0-7.3) % Eos % (Auto) (0.0-4.3) % Baso % (Auto) (0.0-1.8) % Lymph # (1.2-5.4) K/mm3 Webster # (0.0-0.8) K/mm3 Eos # (0.0-0.4) K/mm3 Baso # (0.0-0.1) K/mm3 Seg Neutrophils % (40.0-70.0) % Seg Neutrophils # (1.8-7.7) K/mm3 PT (12.2-14.9) Sec. INR (0.87-1.13) APTT (24.2-36.6) Sec. Sodium (137-145) mmol/L Potassium (3.6-5.0) mmol/L Chloride (98-107) mmol/L Carbon Dioxide (22-30) mmol/L Anion Gap mmol/L BUN (9-20) mg/dL Creatinine (0.8-1.5) mg/dL Estimated GFR ml/min BUN/Creatinine Ratio % Glucose (75-100) mg/dL Calcium (8.4-10.2) mg/dL Total Bilirubin (0.1-1.2) mg/dL AST (5-40) units/L ALT (7-56) units/L Alkaline Phosphatase (35-129) units/L Troponin T (0.00-0.029) ng/mL NT-Pro-B Natriuret Pep 1751 H (0-900) pg/mL Total Protein (6.3-8.2) g/dL Albumin (3.9-5) g/dL Albumin/Globulin Ratio % - Radiology Data Radiology results: report reviewed Critical Care Time: Yes Critical care time in (mins) excluding proc time.: 40 Critical care attestation.: If time is entered above; I have spent that time in minutes in the direct care of this critically ill patient, excluding procedure time. ED Disposition Clinical Impression: CHF (congestive heart failure) Disposition: TO HOME OR SELFCARE Is pt being admited?: No Does the pt Need Aspirin: No Condition: Stable Instructions: Heart Failure (ED) Additional Instructions: return if worse Referrals: PRIMARY CARE, [Primary Care Provider] - 3-5 Days [facility] [Provider Group] - 3-5 Days [facility] [Provider Group] - 3-5 Days Time of Disposition: 13:48
[2019-06-30 13:04] LABS: Basophils # (Auto) 0.2 K/mm3 (0.0-0.1); Basophils % (Auto) 2.9 % (0.0-1.8); Eosinophils # (Auto) 0.2 K/mm3 (0.0-0.4); Eosinophils % (Auto) 2.4 % (0.0-4.3); Hematocrit 39.9 % (35.5-45.6); Lymphocytes # (Auto) 1.2 K/mm3 (1.2-5.4); Lymphocytes % (Auto) 17.3 % (13.4-35.0); Mean Corpuscular HGB Conc 33 % (32-34); Mean Corpuscular Volume 86 fl (84-94); Monocytes # (Auto) 0.9 K/mm3 (0.0-0.8); Monocytes % (Auto) 12.2 % (0.0-7.3); Platelet Count 315 K/mm3 (140-440); Red Blood Count 4.63 M/mm3 (3.65-5.03); Red Cell Distribution Width 17.7 % (13.2-15.2)
--- NOTE | 2019-06-30 13:04 | XRay Report ---
CHEST 1 VIEW 12:23 PM INDICATION / CLINICAL INFORMATION: Orthopnea. Dyspnea. COMPARISON: 04/07/2019. FINDINGS: SUPPORT DEVICES: The position of the dual chamber left subclavian ICD has not changed. HEART / MEDIASTINUM: Again noted are a median sternotomy, valve prosthesis and mild cardiomegaly. LUNGS / PLEURA: There is mild chronic blunting of both lateral costophrenic angles. The lungs are oth erwise clear. No pneumothorax. ADDITIONAL FINDINGS: No significant additional findings. IMPRESSION: No acute abnormality or significant change. Signer Name: Tree Roman MD Signed: 06/30/2019 1:00 PM Workstation Name: [id number]
[2019-06-30 13:09] LABS: INR 1.49 (0.87-1.13)
[2019-06-30 13:10] LABS: Partial Thromboplastin Time 41.4 Sec. (24.2-36.6)
[2019-06-30 13:15] LABS: Alanine Aminotransferase 20 units/L (7-56); Albumin 4.9 g/dL (3.9-5); BUN/Creatinine Ratio 16; Blood Urea Nitrogen 23 mg/dL (9-20); Calcium 9.7 mg/dL (8.4-10.2); Hemolysis Index 6
[2019-06-30] MEDS ORDERED: FUROSEMIDE 40 MG/4 ML INJ IV ONE (13:46)
[2019-06-30 14:07] VITALS: BP 116/86
== END 2019-06-30 14:25 | disposition home or self-care (01) ==
LOC: ED 11:38
DX: I11.0 Hypertensive heart disease with heart failure (principal); I50.9 Heart failure, unspecified; E11.9 Type 2 diabetes mellitus without complications; J44.9 Chronic obstructive pulmonary disease, unspecified; Z95.1 Presence of aortocoronary bypass graft; Z88.0 Allergy status to penicillin; Z86.718 Personal history of other venous thrombosis and embolism; Z86.711 Personal history of pulmonary embolism; Z87.891 Personal history of nicotine dependence; Z79.899 Other long term (current) drug therapy; Z79.02 Long term (current) use of antithrombotics/antiplatelets
CPT/HCPCS: 36415; 71045; 80053; 83880; 84484; 85025; 85610; 85730; 96374; 99284; J1940